=== PATIENT | female | born 1945 | race Caucasian/White ===

== ENCOUNTER 2018-07-04 13:18 | Inpatient (IN) | payer MEDICARE, OTHER ==
[~2018-07-04] VITALS: Ht 157.5 cm; Wt 57.5 kg
[2018-07-04] VITALS (15 sets, daily range): BP systolic 96–178; BP diastolic 49–108; BMI 24.7
--- NOTE | ~2018-07-04 | OP ---
PATIENT NAME: JAISON HORVATH MEDICAL RECORD: [id number] :43 LOCATION:[facility] D.2312 ADMISSION DATE:07/04/18 SURGEON: SAWYER MERRITT MD DATE OF OPERATION: 07/04/2018 PROCEDURES: 1. PTCA stent left circumflex. 2. PTCA, LAD. 3. Left heart catheterization. 4. Selective coronary angiography. 5. Left ventriculogram. 6. Temporary pacemaker placement. INDICATION: Status post arrest, bradycardia, myocardial infarction. PROCEDURE IN DETAIL: After informed consent was obtained and after a detailed description of risks, benefits as well as alternative therapies, the patient elected to proceed with angiogram and angioplasty. The right femoral area was prepped and draped in normal sterile fashion. Right femoral artery was cannulated via modified Seldinger technique with placement of 6-Puerto Rican sheath. The right femoral vein cannulated via modified Seldinger technique with placement of 6-Pu[place]ican sheath. Temporary pacemaker was placed in the right ventricle. FINDINGS: The left ventriculogram was performed in standard 30-degree MELISSA view reveals apical akinesis, ejection fraction is 30%. SELECTIVE CORONARY ANGIOGRAPHY: 1. Left main is with no significant angiographic disease. 2. Left anterior descending has previously placed stents in the LAD and diagonal. There was greater than 70% in-stent restenosis of the LAD. 3. Left circumflex has previously placed stents proximally. There is 90% to 95% in-stent restenosis proximally. 4. The right coronary artery has previously placed stents. There is 80% in-stent restenosis in the mid vessel. PTCA STENT OF THE LEFT CIRCUMFLEX: The circumflex was addressed with a 3.5 x 22 mm Anthon stent. Result was 0% residual stenosis. PTCA OF THE LAD: High pressure PTCA was made with a 3.0 balloon in the mid LAD. Result was 0% residual stenosis. OVERALL IMPRESSION: Successful PTCA stent of the left circumflex and successful high pressure PTCA of the LAD, both for in-stent restenosis, both going from 70% to 95% initial stenosis to 0% residual. PLAN: PTCA stent of the RCA in the near future. TRANSINT:[id number] Voice Confirmation ID: [id number] DOCUMENT ID: [id number] OPERATIVE REPORT [id number] JAISON HORVATH JEFFREY MD at 1806 CC: [id number] DICTATION DATE: 07/04/18 1447 STUDY HALL SUPERVISOR: 07/04/18 1459 ADM IN [place] [id number] [place] [id number]
--- NOTE | ~2018-07-04 | OP ---
PATIENT NAME: JAISON HORVATH MEDICAL RECORD: [id number] :43 LOCATION:.[facility] D.2312 ADMISSION DATE:07/04/18 SURGEON: SAWYER MERRITT MD DATE OF OPERATION: 07/12/2018 PROCEDURES: 1. PTCA stent RCA. 2. Selective coronary angiography. INDICATION: Angina and coronary artery disease. PROCEDURE IN DETAIL: After informed consent was obtained and after a detailed description of risks, benefits as well as alternative therapies, the patient elected to proceed with angiogram and angioplasty. The left femoral area was prepped and draped in normal sterile fashion. Left femoral artery was cannulated via modified Seldinger technique with placement of 6-Latvian sheath. All catheters exchanged through this sheath. FINDINGS: The right coronary artery has 2 areas of at least 80% stenosis. Both areas were covered with 2.25 x 26 mm Sammy stent. Result was 0% residual stenosis. OVERALL IMPRESSION: Successful percutaneous transluminal coronary angioplasty stent of the right coronary artery going from 80% initial stenosis to 0% residual. TRANSINT:[id number] Voice Confirmation ID: [id number] DOCUMENT ID: [id number] SAWYER MERRITT MD at 1950 CC: [id number] DICTATION DATE: 07/12/18 1044 MACHINE STEMMER: 07/12/18 1051 ADM IN [place] [id number] [place] [address]
--- NOTE | ~2018-07-04 | HEMODYNAMI ---
PATIENT:JAISON HORVATH MEDICAL RECORD: [id number] : 43 LOCATION:[facility] D.231 ADMISSION DATE: 07/04/18 Generatedon:07/07/201814:36 Patient name: JAISON HORVATH Patient #: [id number] SSN: : 1 12/26/1944 Date of study: 07/07/2018 Page: Of Hemodynamic Procedure Report Patient Data Patient Demographics Procedure consent was obtained First Name: JAISON Gender: Female Last Name: YULIET : 1945 [facility] Initial: P Age: 72 year(s) Patient #: [id number] Race: Unknown Additional ID: [id number] Contact details Address: [address] [place] [address] State: [place] City: [place] Zip code: [address] Past Medical History Allergies Allergen Reaction Date Comments Reported Other allergy 07/07/2018 morphine Admission Admission Data Admission Date: 07/04/2018 Admission Time: 15:21 Admit Source: Emergency department Room #: D.2312 Procedure Procedure Types Cath Procedure Diagnostic Procedure LHC LHC w/Coronaries Temporary Pacemaker Procedure Description Procedure Date Procedure Date: 07/07/2018 Procedure Start Time: 14:08 Procedure End Time: 14:35 Procedure Staff Name Function Nehemias Spears MD Performing Physician Stefan Castro RT Monitor Shirley Ferguson RT Scrub Alina Joyce RN Nurse Procedure Data Cath Procedure Fluoroscopy Diagnostic fluoroscopy Total fluoroscopy Time: 1.5 time: 1.5 min min Diagnostic fluoroscopy Total fluoroscopy dose: 129 dose: 129 mGy mGy Contrast Material Contrast Material Type Amount (ml) Isovue 300 33 Entry Location Entry Primary Successful Side Size Upsize Upsize Entry Closure Succes sful Closure Location (Fr) 1 (Fr) 2 (Fr) Remarks Device Remarks Femoral Right 6 Fr Exoseal artery Short Femoral Right 6 Fr Sheath vein Short sutured in place Estimated blood loss: 5 ml Diagnostic catheters Device Type Used For End Catheter Placement MULTIPACK JL 4.0 5Fr Procedure catheter MULTIPACK 3DRC 5Fr Procedure catheter MULTIPACK Pigtail 5 Fr Procedure catheter Procedure Complications No complications Procedure Medications Medication Administration Route Dosage Oxygen 100 Lidocaine 2% added to field 20 Heparin Flush Bag added to field 2 bags (1000units/500ml NS) 0.9% NaCl I.V. unlisted medication I.V. drip 25 Dopamine I.V. drip 5 mcg/kg/min (400mg/250ml D5W) Dopamine 5 mcg/kg/min (400mg/250ml D5W) Hemodynamics Rest Heart Rate: 101 (bpm) Pressure Samples Time Site Value (mmHg) Purpose Heart Use Rate(bpm) 14:13 LV 131/16,18 Snapshot 101 14:14 AO 151/85(106) Pullback 97 14:14 LV 130/17,19 Pullback 97 Gradients Valve Time Site 1 Site 2 Mean SEP/DFP Peak To Heart Use (mmHg) (sec/min) Peak Rate (mmHg) (bpm) Aortic 14:14 LV AO 0 4 0 97 130/17,19 151/85(106) Calculations Valve P-P Mean Valve Index Valve Source Name Gradient Area Flow (cm2) Aortic 0 0 0 0 Snapshots Pre Cath Intra NCS Post Cath Vital Signs Time Heart Resp etCO2 NIBP Rhythm Pain Sedation Rate (ipm) (mmHg) (mmHg) Status Level (bpm) 14:08:18 100 18 0 113/44(81) NSR 0 (11) 10(A) , No pain 14:12:32 97 10 0 112/50(85) NSR 0 (11) 5(A) , No pain 14:16:42 109 23 0 120/60(86) NSR 0 (11) 5(A) , No pain 14:21:00 102 22 0 105/45(69) NSR 0 (11) 5(A) , No pain 14:25:14 101 10 0 104/40(79) NSR 0 (11) 5(A) , No pain 14:29:23 101 22 0 100/50(78) NSR 0 (11) 10(A) , No pain 14:33:32 99 22 0 105/49(82) NSR 0 (11) 10(A) , No pain Medications Time Medication Route Dose Verified Delivered Reason Notes Effectiveness by by 13:45:29 DIPROVAN I.V. drip 25 mcg\MIN Nehemias Hull RN FROM ICU 13:45:45 Dopamine I.V. drip 5 Nehemias Fuller CONTINUED (400mg/250ml mcg/kg/min [facility] Jerry Joyce RN FROM ICU D5W) 14:06:45 Oxygen 100% vent Nehemias Spears MD, MD 14:06:55 Lidocaine 2% added to field 20ml vial Nehemias Del Cid for lo reina [facility] John anesthetic MD MALLORY 14:07:00 Heparin Flush added to field 2 bags Nehemias Del Cid used f or Bag [facility] procedure (1000units/500ml MD MALLORY NS) 14:07:10 0.9% NaCl I.V. kvo ml/hr Nehemias Fuller Per [facility] Jerry Joyce RN physician 14:25:47 Dopamine I.V. 5 Nehemias Fuller (400mg/250ml drip-DISCONTINUED mcg/kg/min St Jerry Joyce RN D5W) Procedure Log Time Note 13:45:29 DIPROVAN 25 mcg\MIN I.V. drip was administered by Alina Joyce RN; ; CONTINUED FROM ICU 13:45:45 Alina Joyce RN sent for patient. Start room use. 13:45:45 Pt brought up from ICU by Lisset Carroll (RN) 13:45:45 Dopamine (400mg/250ml D5W) 5 mcg/kg/min I.V. drip was administered by Alina Joyce RN; ; CONTINUED FROM ICU 14:00:07 ACC The patient was administered the following blood thiners within the last 24 hours: ACCPlavix 14:00:27 Patient allergic to Other allergymorphine 14:00:32 Is the patient allergic to Iodine/contrast media? No. 14:00:35 IV patent on arrival in left hand, left forearm with 0.9% NaCl at KVO. 14:01:47 Previous problem with sedation/anesthesia? N/A ? 14:01:48 Snore? N/A 14:01:49 Sleep apnea? N/A 14:01:51 Deviated septum? N/A 14:01:52 Opens mouth fully? N/A 14:01:53 Sticks out tongue? N/A 14:01:56 Airway obstruction? N/A ? 14:01:57 Dentures? N/A ? 14:06:14 Informed consent obtained and on chart 14:06:42 Diagnostic Cath status Emergency 14:06:45 Oxygen 100% vent was administered by Nehemias Spears MD; ; 14:06:53 Time tracking: Regular hours (M-F 7:00 - 5:00) 14:06:55 Lidocaine 2% 20ml vial added to field was administered by Nehemias Spears MD; for local anesthetic; 14:06:57 Plan of Care:Hemodynamics will remain stable., Cardiac rhythm will remain stable., Comfort level will be maintained., Respiratory function will remain adequate., Patient/ family verbilizes understanding of procedure., Procedure tolerated without complication., Recovers from procedure without complications.. 14:07:00 Heparin Flush Bag (1000units/500ml NS) 2 bags added to field was administered by Neheimas Spears MD; used for procedure; 14:07:04 Patient received from ICU to CCL 1 On ventilator. Tansferred to table in Supine position. 14:07:05 Warm blankets applied, and darling hugger turned on for patient comfort. 14:07:06 Correct patient and procedure confirmed by team. 14:07:07 Vital chart was started 14:07:08 ECG and BP/O2 sat monitors applied to patient. 14:07:10 0.9% NaCl kvo ml/hr I.V. was administered by Alina Joyce RN; Per physician; 14:07:15 Sharps counted by scrub and verified by R.N. 14:07:15 Right groin area was prepped with chlora-prep and draped in sterile fashion 14:07:15 Baseline sample Acquired. 14:07:16 Alarms reviewed by R. N. 14:07:19 Physician arrived 14:07:19 --------ALL STOP TIME OUT------ 14:07:20 Final Timeout: patient, procedure, and site verified with staff and physician. All members of the team are in agreement. 14:07:21 Right groin site verified by team. 14:07:24 Physical assessment completed. ASA score P 5 - A moribund patient who is not expected to survive without the operation as per Nehemias Spaers MD. 14:07:36 Sedation plan: None Medication:Lidocaine 14:07:40 Use device set Femoral Dx 14:07:41 ACIST Syringe (94660) opened to sterile field. 14:07:50 Bag Decanter (2001S) opened to sterile field. 14:07:51 Medline Cath Pack ([id number]) opened to sterile field. 14:07:55 ACIST Hand Control (96255) opened to sterile field. 14:07:56 ACIST Manifold (32823) opened to sterile field. 14:07:57 SHEATH Prelude 5Fr 0.035 (SER-4B-84-035) opened to sterile field. 14:07:58 Tegaderm 4 x 4 (1626W) opened to sterile field. 14:07:59 DIAGNOSTIC WIRE .035 260cm J wire (660339) opened to sterile field. 14:08:00 DIAGNOSTIC Multipack 5Fr catheter set (WA2674) opened to sterile field. 14:08:04 Procedure started. 14:08:04 Full Disclosure recording started 14:08:07 Local anesthetic to right femoral artery with Lidocaine 2% by Nehemias Spears MD.INITIAL ACCESS ONLY 14:08:16 A 6 Fr Short sheath was inserted into the Right Femoral artery 14:08:24 A 6 Fr Short sheath was inserted into the Right Femoral vein 14:08:58 Rhythm: sinus tachycardia 14:09:20 SHEATH Prelude 6Fr 0.035 (YUQ-2D-32-035) opened to sterile field. 14:09:21 SHEATH Prelude 6Fr 0.035 (LKH-9I-34-035) opened to sterile field. 14:09:32 5Fr J Tip Temporary Pacing Catheter ([id number]) opened to sterile field. 14:09:39 Zero performed for pressure channel P1 14:10:39 A MULTIPACK JL 4.0 5Fr catheter was advanced over the wire and used for Procedure. 14:11:00 LCA angiography performed. 14:11:33 Jewel from ICU just entered cath suite and informed Dr. Henry that the of pt just signed DNR request. and it was informed to [facility] not to perform any heroic measures in the case if she were to decline. 14:11:37 Catheter exchanged over wire. 14:11:42 A MULTIPACK 3DRC 5Fr catheter was advanced over the wire and used for Procedure. 14:12:14 H&P Date Dictated: 07/04/2018 Within 30 days and on chart.. 14:12:27 RCA angiography performed. 14:12:29 Catheter exchanged over wire. 14:12:38 A MULTIPACK Pigtail 5 Fr catheter was advanced over the wire and used for Procedure. 14:13:40 Is patient on blood thinner?Yes 14:14:00 LV gram done using MELISSA 14:14:02 Injector settings: Ml/sec: 10, Volume: 20, 14:14:05 LV hemodynamics recorded. 14:14:10 EF : 55 % 14:14:17 Catheter removed. 14:14:53 Temporary pacer inserted 14:15:41 Lab results completed and on chart. 14:17:14 Temporary pacer turned on with the following settings: Rate 110, MA 3, Mode: Demand. 14:20:07 Temporary pacer turned on with the following settings: Rate 60, MA 3, Mode: Demand. 14:21:14 EXOSEAL 6Fr (EX600) opened to sterile field. 14:21:23 Sheath removed intact; hemostasis achieved with Exoseal to the Right Femoral artery. 14:21:25 Procedure ended.(Physican Out) 14:23:41 Sheath removed intact; hemostasis achieved with Sheath sutured in place to the Right Femoral vein. 14:24:05 temporary pacemaker sutured in place 14:24:19 Tegaderm 4 x 4 (1626W) opened to sterile field. 14:24:19 Tegaderm 4 x 4 (1626W) opened to sterile field. 14:24:26 2-0 Silk 685H opened to sterile field. 14:24:27 2-0 Silk 685H opened to sterile field. 14:24:49 Fluoroscopy time 01.50 minutes. 14:24:52 Fluoroscopy dose: 129 mGy 14:24:52 Flurop Dose total: 129 14:25:00 Contrast amount:Isovue 300 33ml. 14:25:01 Sharps counted by scrub and verified by R.N. 14:25:03 Insertion/operative site no bleeding no hematoma. 14:25:07 Post-op/insertion site Right Femoral artery dressed using a 4 x 4 and Tegaderm. 14:25:10 Post right femoral artery:stable, soft, clean and dry 14:25:15 Post right femoral vein:stable, soft, clean and dry 14:25:16 Post Procedure Pulses reassessed and unchanged 14:25:20 Post-procedure physical assessment completed. ASA score P 5 - A moribund patient who is not expected to survive without the operation as per Nehemisa Spears MD. 14:25:47 Dopamine (400mg/250ml D5W) 5 mcg/kg/min I.V. drip-DISCONTINUED was administered by Alina Joyce RN; ; 14:25:47 Post procedure rhythm: sinus tachycardia 14:25:49 Estimated blood loss: 5 ml 14:25:50 Post procedure instruction explained to patient.Patient verbalizes understanding. 14:25:51 Patient needs reinforcement of post procedure teaching. 14:27:07 Procedure and supply charges have been captured, reviewed, submitted and are correct. 14:27:13 Procedure Complication : No complications 14:27:18 See physician's report for complete and final results. 14:27:20 Report given to ICU. 14:34:22 Vital chart was stopped 14:34:24 Patient transfered to ICU with Bed. 14:35:09 Procedure ended. 14:35:09 Full Disclosure recording stopped 14:35:28 End room use (Document Last) Device Usage Item Name Manufacture Quantity Catalog Number Hospital Part Current Minimal Lot# / Charge Number Stock Stock Serial# Code ACIST Syringe Acist 1 11097 [id number] 072344 001821 20 (29066) [employer] Bag Decanter Microtek 1 2001S [id number] 08384 154590 5 (2001S) Medical Inc. Medline Cath Cardinal 1 [id number] 768061 78875 720081 5 Pack Health ([id number]) ACIST Hand Acist 1 30162 999956 496752 845180 5 Control (68747) [employer] ACIST Manifold Acist 1 80776 051521 951555 707951 5 (68245) [employer] SHEATH Prelude Merit 1 [id number]-4G-65-035 803801 929645 264744 5 5Fr 0.035 Medical (USV-5Q-37035) Tegaderm 4 x 4 3M 3 1626W 215686 212488 116183 5 (1626W) DIAGNOSTIC WIRE [facility] 1 809658 238226 297615 576001 30 .035 260cm J wire (909151) DIAGNOSTIC Cardinal 1 [id number] 665958 67694 334893 30 Multipack 5Fr Health catheter set ([id number]) SHEATH Prelude Merit 2 [id number]-9U-06-35 944591 4264516 368304 5 6Fr 0.035 Medical (ZLM-8C-51-035) 5Fr J Tip Drake 1 [id number] 317787 81666 960034 2 Temporary Lifesciences Pacing Catheter ([id number]) MULTIPACK JL Cardinal 1 [id number] 5 4.0 5Fr Health catheter MULTIPACK 3DRC Cardinal 1 383056 5 5Fr catheter Health MULTIPACK Cardinal 1 [id number] 5 Pigtail 5 Fr Health catheter EXOSEAL 6Fr Cardinal 1 EX600 140539 194724 673711 10 (EX600) Health 2-0 Silk 685H Ethicon 2 685H 185279 14727 039764 5 Signature Audit [place] Stage Time Signature Unsigned Intra-Procedure 07/07/2018 Stefan Castro 2:36:02 PM RT(R) Signatures Monitor : Stefan Castro RT Signature : Date : Time : [place] [id number] [place] [address]
--- NOTE | ~2018-07-04 | HEMODYNAMI ---
PATIENT:JAISON HORVATH MEDICAL RECORD: [id number] : 43 [id number] ADMISSION DATE: 07/04/18 Generatedon:07/04/201814:57 Patient name: JAISON HORVATH Patient #: [id number] SSN: : 1 12/26/1944 Date of study: 07/04/2018 Page: Of Hemodynamic Procedure Report Patient Data Patient Demographics Procedure consent was obtained First Name: JAISON Gender: Female Last Name: YULIET : 1945 Middle Initial: P Age: 72 year(s) Patient #: [id number] Race: Unknown Additional ID: [id number] Contact details Address: [address] [place] [address] [address] State: [place] City: [place] Zip code: [address] Admission Admission Data Admission Date: 07/04/2018 Admission Time: 13:18 Admit Source: Emergency department Room #: D.2312 Procedure Procedure Types Cath Procedure Diagnostic Procedure LHC LH w/Coronaries Temporary Pacemaker PCI Procedure Coronary Stent Coronary Stent Initial PTCA PTCA Initial Procedure Description Procedure Date Procedure Date: 07/04/2018 Procedure Start Time: 14:16 Procedure End Time: 14:57 Procedure Staff Name Function Aj Lindsey MD Performing Physician Burak Bertrand RT Monitor Stefan Castro RT Scrub Miquel Judge RN Nurse Zak Brewer RT Building Stonecutter Procedure Data Cath Procedure Fluoroscopy Diagnostic fluoroscopy Total fluoroscopy Time: 5.8 time: 5.8 min min Diagnostic fluoroscopy Total fluoroscopy dose: 269 dose: 269 mGy mGy Contrast Material Contrast Material Type Amount (ml) Isovue 300 99 Entry Location Entry Primary Successful Side Size Upsize Upsize Entry Closure Succes sful Closure Location (Fr) 1 (Fr) 2 (Fr) Remarks Device Remarks Femoral Right 6 Fr Exoseal artery Short Femoral Right 6 Fr vein Short Estimated blood loss: 10 ml Diagnostic catheters Device Type Used For End Catheter Placement MULTIPACK Pigtail 5 Fr Procedure catheter MULTIPACK JL 4.0 5Fr Procedure catheter MULTIPACK 3DRC 5Fr Procedure catheter Procedure Complications No complications Procedure Medications Medication Administration Route Dosage Oxygen Heparin Flush Bag added to field 2 bags (1000units/500ml NS) 0.9% NaCl I.V. 100 ml/hr Heparin Bolus I.V. 4000 units Integrilin (Bolus I.V. 5.6 ml 2mg/ml) Integrilin (Bolus wasted 4.4 ml 2mg/ml) Hemodynamics Rest Heart Rate: 71 (bpm) Pressure Samples Time Site Value (mmHg) Purpose Heart Use Rate(bpm) 14:20 LV 119/23,25 Snapshot 71 14:22 AO 103/61(80) Snapshot 53 14:22 AO 105/61(80) Snapshot 52 14:25 AO 139/70(96) Snapshot 67 Snapshots Pre Cath Intra NCS Post Cath Vital Signs Time Heart Resp SPO2 etCO2 NIBP (mmHg) Rhythm Pain Sedation Rate (ipm) (%) (mmHg) Status Level (bpm) 14:21:04 35 17 96 0 108/63(91) NSR 0 (11) 3(A) , No pain 14:25:14 54 16 99 0 124/63(103) NSR 0 (11) 3(A) , No pain 14:29:26 102 17 98 0 136/73(105) NSR 0 (11) 3(A) , No pain 14:33:44 65 17 97 0 102/62(86) NSR 0 (11) 3(A) , No pain 14:37:54 59 17 97 0 114/56(87) NSR 0 (11) 3(A) , No pain 14:40:56 64 18 98 0 104/54(74) NSR 0 (11) 3(A) , No pain 14:45:09 65 17 99 0 103/51(76) NSR 0 (11) 3(A) , No pain 14:49:18 65 17 100 0 99/57(75) NSR 0 (11) 3(A) , No pain 14:53:28 59 15 100 0 101/54(75) NSR 0 (11) 3(A) , No pain 14:57:32 67 17 99 0 106/58(84) NSR 0 (11) 3(A) , No pain Medications Time Medication Route Dose Verified Delivered Reason Notes Effectiveness by by 14:20:58 Oxygen per Aj resp for low 02 sats vent César MALLORY 14:21:17 Heparin Flush added 2 Aj Lafleur used for Bag to bags César Judge shoveler (1000units/500ml field NS) 14:21:26 0.9% NaCl I.V. 100 Aj Lafleur Per physician ml/hr César Judge RN 14:26:49 Heparin Bolus I.V. 4000 Aj Lafleur for units César Judge RN anticoagulation 14:27:03 Integrilin I.V. 5.6 Aj Lafleur for (Bolus 2mg/ml) ml César Judge RN antiplatelet therapy 14:27:11 Integrilin wasted 4.4 Aj Lafleur for (Bolus 2mg/ml) ml César Judge RN antiplatelet therapy Procedure Log Time Note 13:51:05 Informed consent obtained and on chart 13:51:11 Admit Source: Emergency department 13:51:32 Diagnostic Cath status Urgent 13:51:37 Zak Suit RT(R) sent for patient. Start room use. 13:51:38 Time tracking: Regular hours (M-F 7:00 - 5:00) 13:51:41 Plan of Care:Hemodynamics will remain stable., Cardiac rhythm will remain stable., Comfort level will be maintained., Respiratory function will remain adequate., Patient/ family verbilizes understanding of procedure., Procedure tolerated without complication., Recovers from procedure without complications.. 13:51:46 H&P Date Dictated: 07/04/2018 New H&P dictated by physician.. 14:05:29 Patient received from ED to CCL 3 Alert and oriented. Tansferred to table in Supine position. 14:05:30 Warm blankets applied, and darling hugger turned on for patient comfort. 14:05:31 Correct patient and procedure confirmed by team. 14:05:31 ECG and BP/O2 sat monitors applied to patient. 14:08:27 Patient arrives emergently. 14:08:31 Rhythm: paced 14:08:34 Full Disclosure recording started 14:09:14 Pt arrived intubated and on an external pacer. 14:09:20 Pre procedure: right dorsailis pedis pulse 1+ Palpable, but thready & weak; easily obliterated 14:09:35 IV patent on arrival in right wrist, left wrist with 0.9% NaCl at KVO. 14:09:44 Lab results completed and on chart. 14:09:49 Right groin area was prepped with chlora-prep and draped in sterile fashion 14:09:50 Alarms reviewed by R. N. 14:09:51 Sharps counted by scrub and verified by R.N. 14:11:03 --------ALL STOP TIME OUT------ 14:11:04 Final Timeout: patient, procedure, and site verified with staff and physician. All members of the team are in agreement. 14:11:13 Right groin site verified by team. 14:11:16 Physical assessment completed. ASA score P 4 - A patient with severe systemic disease that is a constant threat to life as per Aj Lindsey MD. 14:11:21 Sedation plan: IV Moderate Sedation Medication:Versed, Fentanyl 14:12:02 Use device set Femoral Dx 14:12:11 Use device set Temporary Pacemaker 14:12:26 Use device set TAUTH PCI 14:12:30 ACIST Syringe (36639) opened to sterile field. 14:12:31 Bag Decanter (2002S) opened to sterile field. 14:12:32 Medline Cath Pack ([id number]) opened to sterile field. 14:12:46 ACIST Hand Control (03822) opened to sterile field. 14:12:46 ACIST Manifold (63594) opened to sterile field. 14:12:47 Tegaderm 4 x 4 (1626W) opened to sterile field. 14:12:48 PERCUTANEOUS ENTRY 19GA needle opened to sterile field. 14:13:55 Vital chart was started 14:14:23 DIAGNOSTIC WIRE .035 260cm J wire (743368) opened to sterile field. 14:14:24 DIAGNOSTIC Multipack 5Fr catheter set (AN9231) opened to sterile field. 14:14:27 5Fr J Tip Temporary Pacing Catheter ([id number]) opened to sterile field. 14:14:28 2-0 Silk 685H opened to sterile field. 14:14:29 SHEATH Prelude 6Fr 0.035 (MIY-7L-95-035) opened to sterile field. 14:14:38 SHEATH Prelude 6Fr 0.035 (APR-7X-98-035) opened to sterile field. 14:16:52 Procedure started. 14:16:56 Local anesthetic to right femoral artery with Lidocaine 2% by Aj Lindsey MD.INITIAL ACCESS ONLY 14:17:11 A 6 Fr Short sheath was inserted into the Right Femoral artery 14:17:19 A 6 Fr Short sheath was inserted into the Right Femoral vein 14:17:30 Temporary pacer inserted 14:19:16 Temporary pacer turned on with the following settings: Rate 80, MA 5, Mode: Asynchronous. 14:19:44 A MULTIPACK Pigtail 5 Fr catheter was advanced over the wire and used for Procedure. 14:20:52 LV angiography performed. 14:20:53 LV gram done using MELISSA 14:20:57 EF : 30 % 14:20:58 Oxygen per vent was administered by resp; for low 02 sats; 14:21:17 Heparin Flush Bag (1000units/500ml NS) 2 bags added to field was administered by Miquel Judge RN; used for procedure; 14:21:20 Injector settings: Ml/sec: 10, Volume: 20, 14:21:22 Catheter removed. 14:21:26 0.9% NaCl 100 ml/hr I.V. was administered by Miquel Judge RN; Per physician; 14:21:29 A MULTIPACK JL 4.0 5Fr catheter was advanced over the wire and used for Procedure. 14:21:52 LCA angiography performed. 14:22:31 Catheter removed. 14:22:52 A MULTIPACK 3DRC 5Fr catheter was advanced over the wire and used for Procedure. 14:24:17 RCA angiography performed. 14:24:18 Catheter removed. 14:24:21 INFLATOR Merit BasixCompak (IG0686) opened to sterile field. 14:24:25 CHOICE PT Extra Support 182cm wire ([id number]) opened to sterile field. 14:24:26 GUIDE 6FR EBU 3.5 catheter ([id number]) opened to sterile field. 14:24:39 6 Fr EBU 3.5 guide catheter was inserted over the wire 14:25:07 Choice PT XS wire advanced. 14:25:34 Wire advanced across lesion. 14:26:46 Inflate balloon Inflation number: 1 A EUPHORA 3.0 x 15 Balloon ([id number]) was prepped and advanced across the Mid CX, then inflated to 17 CHRISTINE for 0:10 (min:sec). 14:26:49 Heparin Bolus 4000 units I.V. was administered by Miquel Judge RN; for anticoagulation; 14:27:03 Integrilin (Bolus 2mg/ml) 5.6 ml I.V. was administered by Miquel Judge RN; for antiplatelet therapy; 14:27:08 Multiple inflations made at 17 Atms. 14:27:11 Integrilin (Bolus 2mg/ml) 4.4 ml wasted was administered by Miquel Judge RN; for antiplatelet therapy; 14:29:11 Balloon removed over the wire. 14:29:43 Place stent Inflation Number: 2 A JENNIFER RX 3.5 x 22 stent ([id number]) was prepped and advanced across the Mid CX. The stent was deployed at 17 CHRISTINE for 0:10 (min:sec). 14:30:59 Stent catheter was removed intact over wire. 14:31:19 Wire redirected to LAD. 14:32:10 Temporary pacer turned on with the following settings: Rate 60, MA 5, Mode: Asynchronous. 14:32:27 Wire advanced across lesion. 14:32:45 Inflation number: 1 The EUPHORA 3.0 x 15 Balloon ([id number]) was reinflated across the Mid LAD, to 13 CHRISTINE for 0:10 (min:sec). 14:32:59 Multiple inflations made at 13 Atms. 14:34:07 Balloon removed over the wire. 14:34:07 Wire removed. 14:34:08 Guide catheter removed. 14:34:18 EXOSEAL 6Fr (EX600) opened to sterile field. 14:35:54 Sheath removed intact; hemostasis achieved with Exoseal to the Right Femoral artery. 14:35:56 Procedure ended.(Physican Out) 14:37:35 Fluoroscopy time 05.80 minutes. 14:37:39 Fluoroscopy dose: 269 mGy 14:37:39 Flurop Dose total: 269 14:37:57 Contrast amount:Isovue 300 99ml. 14:37:59 Sharps counted by scrub and verified by R.N. 14:39:02 Venous sheath and Temp Pacer was sutured in with 2.0 Silk. 14:40:13 Post-procedure physical assessment completed. ASA score P 4 - A patient with severe systemic disease that is a constant threat to life as per Aj Lindsey MD. 14:40:17 Post procedure rhythm: paced 14:40:19 Estimated blood loss: 10 ml 14:40:24 Post procedure instruction explained to patient.Patient verbalizes understanding. 14:40:29 Patient needs reinforcement of post procedure teaching. 14:40:45 Procedure type changed to Cath procedure, Diagnostic procedure, LHC, LHC w/Coronaries, Temporary Pacemaker, PCI procedure, Coronary Stent, Coronary Stent Initial, PTCA, PTCA Initial 14:40:52 Procedure Complication : No complications 14:41:41 Procedure and supply charges have been captured, reviewed, submitted and are correct. 14:57:12 Vital chart was stopped 14:57:13 See physician's report for complete and final results. 14:57:15 Report given to ICU. 14:57:29 Patient transfered to ICU with Bed. 14:57:31 Procedure ended. 14:57:31 Full Disclosure recording stopped 14:57:35 End room use (Document Last) Intervention Summary Intervention Notes Time ActionType Lesion and Equipment Used Action# Pressure Duration Attributes 14:26:46 Inflate Mid CX EUPHORA 3.0 x 1 17 00:10 balloon 15 Balloon ([id number]) 14:29:43 Place stent Mid CX JENNIFER RX 3.5 x 2 17 00:10 22 stent ([id number]) 14:32:45 Reinflate Mid LAD EUPHORA 3.0 x 1 13 00:10 balloon 15 Balloon ([id number]) Device Usage Item Name Manufacture Quantity Catalog Number Hospital Part Current Minimal Lot# / Charge Number Stock Stock Serial# Code ACIST Syringe Acist 1 75987 304851 715700 702420 20 (23771) Medical Systems Inc Bag Decanter Microtek 1 2001S 274153 54131 149521 5 (2001S) Medical Inc. Medline Cath Cardinal 1 [id number] 707789 13128 175800 5 Pack Health ([id number]) ACIST Hand Acist 1 45151 066305 961558 704624 5 Control (51066) Medical Systems Inc ACIST Manifold Acist 1 51503 481441 549943 570933 5 (98255) Medical Systems Inc Tegaderm 4 x 4 3M 1 1626W 314562 580241 838583 5 (1626W) PERCUTANEOUS Cook Medical 1 [id number] 565326 155600 5 ENTRY 19GA needle DIAGNOSTIC WIRE St Alejo 1 638475 414614 332548 346841 30 .035 260cm J wire (770354) DIAGNOSTIC Cardinal 1 KI5713 483825 53461 397392 30 Multipack 5Fr Health catheter set (YO2305) 5Fr J Tip Drake 1 [id number] 717446 54371 509339 2 Temporary Lifesciences Pacing Catheter ([id number]) 2-0 Silk 685H Ethicon 1 685H 572742 99921 659286 5 SHEATH Prelude Merit 2 BEO-2V-10-35 817374 0862505 111159 5 6Fr 0.035 Medical (CPC-2A-28-035) MULTIPACK Cardinal 1 477702 5 Pigtail 5 Fr Health catheter MULTIPACK JL Cardinal 1 938866 5 4.0 5Fr Health catheter MULTIPACK 3DRC Cardinal 1 082710 5 5Fr catheter Health INFLATOR Merit Merit 1 EQ0377 398163 100883 508289 15 ValidroidOgden Regional Medical CenterMyMoneyPlatform (NC1536) CHOICE PT Extra [place]te 1 [id number] 272849 631386 510143 5 Support 182cm Scientific wire ([id number]) GUIDE 6FR EBU Medtronic 1 [id number] 979114 62144 318291 3 3.5 catheter (CS0UMW26) EUPHORA 3.0 x Medtronic 1 [id number] 967307 948755 754963 5 [id number] 15 Balloon (TCH0062E) JENNIFER RX 3.5 x Medtronic 1 [id number] 072040 0067756 424330 5 [id number] 22 stent ([id number]) EXOSEAL 6Fr Cardinal 1 EX600 328124 307447 620708 10 (EX600) Health Signature Audit Clayton Stage Time Signature Unsigned Intra-Procedure 07/04/2018 Burak Bertrand 2:57:48 PM RT(R) Signatures Monitor : Burak Bertrand RT Signature : Date : Time : [facility] [address] [place] [address]
--- NOTE | ~2018-07-04 | EC ---
PATIENT:JAISON HORVATH DATE OF SERVICE: 07/04/18 SEX: F MEDICAL RECORD: [id number] DATE OF : 43 LOCATION:[facility] D231 AGE OF PATIENT: 72 ADMISSION DATE: 07/04/18 REFERRING PHYSICIAN: INTERPRETING PHYSICIAN: SAWYER LINDSEY MD ECHOCARDIOGRAM REPORT ECHO CHARGES 4 ECHO COMPLETE Date: 07/12/18 CLINICAL DIAGNOSIS: POST STENT TO RCA, ECHOCARDIOGRAPHIC MEASUREMENTS (adult normal given) AC root (d.<3.7cm) 3.4 cm LV Septum d (<1.2 cm> 1.3 cm Valve Excursion 2.0 cm LV Septum (systole) 1.7 cm Left Atria (s.<4.0cm> 3.6 cm LVPW d(<1.2cm) 1.6 cm RV (d.<2.3cm) 2.5 cm LVPW (sytole) 1.9 cm LV diastole(<5.6CM) 4.0 cm MV E-F(>70mm/sec) cm LV systole 3.2 cm LVOT Diameter 1.5 cm MV exc.(>10mm) cm Est.ejection fraction (50-75%) % DOPPLER: LVIT cm/sec A 89.0 cm/sec E 65.0 cm/sec LA cm/sec RVSP 26 mmHg LVOT 109 cm/sec AOP1/2T m/s Asc. Ao 177 cm/sec RVOT 108 cm/sec RA cm/sec PA 136 cm/sec AV Gradient Peak 12.49mmHg AV Mean 6.68 mmHg AV Area 1.2 cm MV Gradient Peak 4.02 mmHg MV Mean 1.32 mmHg MV Area cm COMMENTS: Inspector Balance Wheel Motion: Shruti JOHNSON Theatrical Rigger: 1 Dr. Lindsey TAPE# PACS Pericardial Effusion N DATE OF SERVICE: 07/12/2018 ECHOCARDIOGRAM FINDINGS: 1. Left ventricular chamber size is within normal limits. Left ventricular systolic function is normal. Overall ejection fraction estimated at 55%. 2. Left atrium, right atrium, and right ventricle chamber sizes are within normal limits. 3. Valvular structures have normal structure and motion. ECHOCARDIOGRAM REPORT [id number] JAISON HORVATH 4. Doppler interrogation reveals mild aortic insufficiency, mild tricuspid regurgitation, no other valvular insufficiency or stenosis. Pulmonary systolic pressure is estimated at 26 mmHg. 5. No evidence of pericardial effusion or left ventricular thrombus. TRANSINT:[id number] Voice Confirmation ID: [id number] DOCUMENT ID: [id number] SAWYER LINDSEY MD at 1950 CC: [id number] DICTATION DATE: 07/12/18 1636 RODEO CLOWN: 07/12/18 1644 ADM IN [facility] [address] [place] [address]
--- NOTE | ~2018-07-04 | HP ---
PATIENT: JAISON HORVATH MEDICAL RECORD: [id number] ACCOUNT: [id number] LOCATION:[facility] D.2312 : 43 ADMISSION DATE: 07/04/18 HISTORY AND PHYSICAL EXAMINATION DIAGNOSES: 1. Status post cardiac arrest. 2. Asystole. 3. Coronary artery disease. 4. Previous PTCA and stent. 5. Myocardial infarction, acute. 6. History of hypertension. 7. Hyperlipidemia. HISTORY OF PRESENT ILLNESS: Mrs. Horvath is status post multivessel PTCA and stent at [facility] as well as here in [place] over the past decade. She was at home today with her and she complained of feeling bad. Her left her for approximately 60 seconds, came back and she was not breathing and unresponsive. She called 911. He started CPR. He admits that he is not trained in CPR and was not sure he was doing breathing as well as chest compressions. EMS arrived. She was purplish at the time EMS arrived. They immediately started bagging her and started CPR, she came back, however, she is with only P waves and no ventricular beats. She is on an external pacer and capturing with the external pacer. She is paced at a rate of 80 and has a systolic blood pressure in the 120 range. Her EKG is obviously uninterpretable due to only externally paced rhythm. Her troponin is elevated. PHYSICAL EXAMINATION: GENERAL APPEARANCE: Well-nourished, well-developed, appears stated age. Level of distress, comfortable. PSYCHIATRIC: Mental status, alert, normal affect. Orientation, oriented to time, place and person. EYES: Lids and conjunctiva, noninjected. No discharge, no pallor. ENT: Lips, teeth, gums, normal dentition. Oropharynx, no cyanosis, no pallor. NECK: Carotid arteries, bilateral normal upstroke, no bruits, no thrills. JUGULAR VEINS: No jugular venous pressure or distention. CERVICAL LYMPH NODES: Nontender, nonenlarged. THYROID: Not enlarged. Nontender. No nodules. LUNGS: Respiratory effort, unlabored. CHEST: Normal curvature. No thoracic deformity. No chest wall tenderness. Percussion, resonant. Auscultation, clear. No wheezes, no rales, no rhonchi. CARDIOVASCULAR: Precordial exam, nondisplaced. No heaves or pericardial thrills. Rate and rhythm, regular. Heart sounds, normal S1, normal S2. No S3, no gallop, no rub. Systolic murmur, not heard. Diastolic murmur, not heard. EXTREMITIES: No cyanosis, no edema. Peripheral pulses, full and equal in all extremities, except as noted. No bruits appreciated. ABDOMEN: Soft, nondistended. Normal aorta. No bruit. Nontender. No masses. Liver, nontender, no hepatomegaly. Spleen, nontender, no splenomegaly. MUSCULOSKELETAL: No joint tenderness. No joint swelling. No erythema. NEUROLOGICAL: Normal gait, normal strength, normal tone. SKIN: Warm and dry. OVERALL IMPRESSION: Acute myocardial infarction with cardiac arrest. At this time, we will take her for emergent cardiac catheterization and temporary pacemaker placement. She is on carvedilol at home. The knows no other HISTORY AND PHYSICAL [id number] JAISON HORVATH medications. This may be contributing to the bradycardia. Further care depends on findings with the catheterization. TRANSINT:[id number] Voice Confirmation ID: [id number] DOCUMENT ID: [id number] SAWYER MERRITT MD at 1843 CC: [id number] DICTATION DATE: 07/07/1844 AIRCONDITIONING DRAFTING OFFICER: 07/07/18 09 ADM IN [place] [id number] [place] [id number]
--- NOTE | ~2018-07-04 | CN ---
PATIENT NAME:JAISON HORVATH MEDICAL RECORD: [id number] : 43 LOCATION:[facility] [place].2124 ADMIT DATE: 07/04/18 ACCOUNT: [id number] CONSULTING PHYSICIAN: ALDAIR BURTON MD REFERRING PHYSICIAN: SAWYER MERRITT MD DATE OF CONSULTATION: 07/19/2018 REASON FOR CONSULTATION: Rash on back. HISTORY OF PRESENT ILLNESS: This is a 72-year-old white female who presented to the hospital for recent heart attack. The patient states she has had 2 heart attacks recently, currently on telemetry. Consultation is for rash. It is on her back and backside. PHYSICAL EXAMINATION: The patient's back has exfoliating redness in a full discrete pattern, limited by clothing, with the impression of this is an old sunburn. The patient states she has recently been golfing and also in a tanning bed. The patient also has erythema and irritation in her perianal, rectal, and vaginal areas, currently using Donovan's Butt Paste topically. This is most likely considered to be from overgrowth of candidiasis. I would place the patient for her back on Diflucan 100 mg a day p.o. for approximately 7 days for that and topical triamcinolone to her back or moisturizers for improvement. TRANSINT:[id number] Voice Confirmation ID: [id number] DOCUMENT ID: [id number] ALDAIR BURTON MD at 1419 CC: [id number] DICTATION DATE: 07/19/18 1301 INSOLE PRESSER: 07/19/18 1429 [place] [address]
--- NOTE | ~2018-07-04 | OP ---
PATIENT NAME: JAISON HORVATH MEDICAL RECORD: [id number] :43 LOCATION:[facility] D.2312 ADMISSION DATE:07/04/18 SURGEON: FERNANDO BARKLEY MD DATE OF OPERATION: 07/07/2018 PROCEDURE: Left heart catheterization, selective coronary angiography plus temporary pacer, right femoral artery and vein approach respectively. CATHETERS: A 5-Italian sheath on the arterial side, a 6-Italian sheath on the venous side. The patient was transferred to the ICU in critical condition. FINDINGS: Left ventriculography in 30-degree MELISSA view shows normal wall motion, normal systolic function. CORONARY ANATOMY: LEFT MAIN: Left main is free of disease. LAD: An area of previous stenting is widely patent with no evidence of thrombus or acute dissection. CIRCUMFLEX: Again, is widely patent. RIGHT CORONARY ARTERY: Patent stents without evidence of stent thrombosis. Next, under fluoroscopic guidance, the temporary pacemaker was placed into the right ventricle apex without difficulty. After adequate thresholds were obtained, this was sutured in place and the patient was transferred to the ICU in critical condition. TRANSINT:[id number] Voice Confirmation ID: [id number] DOCUMENT ID: [id number] FERNANDO BARKLEY MD at 0924 CC: [id number] DICTATION DATE: 07/07/18 1623 FOOD TRAY ASSEMBLER: 07/07/18 1742 ADM IN [place] [id number] [place] [address]
--- NOTE | ~2018-07-04 | OP ---
PATIENT NAME: JAISON HORVATH MEDICAL RECORD: [id number] :43 LOCATION[facility] D.2312 ADMISSION DATE:07/04/18 SURGEON: CESAR ALVARADO MD DATE OF OPERATION: 07/09/2018 SURGEON: Cesar Alvarado MD TUBE KNITTER: TOBI Peters PROCEDURE PERFORMED: Insertion of dual-chamber permanent pacemaker via left subclavian vein. PREOPERATIVE DIAGNOSIS: Complete heart block. POSTOPERATIVE DIAGNOSIS: Complete heart block. ANESTHESIA: General endotracheal anesthesia. ESTIMATED BLOOD LOSS: Minimal. SPECIMENS: None. COMPLICATIONS: None. CONDITION: Stable. DISPOSITION: ICU. OPERATIVE FINDINGS 1. Good pacing thresholds and sensation. 2. Temporary pacer lead removed from the right femoral venous sheath. INDICATIONS FOR SURGERY: Complete heart block on 2 episodes resulting in cardiopulmonary arrest. OPERATIVE SUMMARY IN DETAIL: The patient was brought to the operating suite. General anesthesia was given and the chest was prepped and draped. Incision below the clavicle was made. Subcutaneous pocket was created and made hemostatic. The subclavian vein was cannulated twice. Guidewires were passed under fluoroscopic control and the introducer sheath were placed and the leads were placed into the atrium. Ventricular lead was placed and screwed into place. Good pacing and sensing thresholds were noted and the suture sleeve was used to secure the lead. The J-wire was placed in the atrial lead and it was placed into the right atrial appendage and screwed into place. Again, good pacing and sensing thresholds were obtained and the suture sleeve was used to secure the lead. The pocket was irrigated and then the leads were connected to the pacemaker generator with resultant good sensing and pacing and placed in the pacemaker pocket, sutured into place and then the wound was closed in 2 levels including Dermabond on the skin. No evidence of pneumothorax by fluoroscopy. The suture holding the temporary pacing lead was removed and the lead was easily removed under fluoroscopic control with the right femoral sheath left in place. The patient to ICU in stable condition. TRANSINT:[id number] Voice Confirmation ID: [id number] DOCUMENT ID: [id number] OPERATIVE REPORT [id number] ABBY HORVATHCESAR XIAO MD at 1622 CC: SAWYER MERRITT [id number] DICTATION DATE: 07/09/18928 PLATFORM MILL SUPERVISOR: 07/09/18 1004 ADM IN [facility] [address] [id number]
--- NOTE | ~2018-07-04 | HEMODYNAMI ---
PATIENT:JAISON HORVATH MEDICAL RECORD: [id number] : 43 LOCATION:[facility] D[facility]2312 [id number] AD[facility]ION DATE: 07/04/18 Generatedon:07/12/201810:45 Patient name: JAISON HORVATH Patient #: [id number] SSN: : 1 12/26/1944 Date of study: 07/12/2018 Page: Of Hemodynamic Procedure Report Patient Data Patient Demographics Procedure consent was obtained First Name: JAISON Gender: Female Last Name: YULIET : 1945 [facility] Initial: P Age: 72 year(s) Patient #: [id number] Race: Unknown Additional ID: [id number] Contact details Address: [address] [place] [address] State: [place] City: [place] Zip code: [address] Past Medical History Allergies Allergen Reaction Date Comments Reported Other allergy 07/07/2018 morphine Other allergy 07/12/2018 Morphine Admission Admission Data Admission Date: 07/04/2018 Admission Time: 15:21 Admit Source: Emergency department Room #: D.2312 Lab Results Lab Result Date: 07/12/2018 Lab Result Time: 5:23 Biochemistry Name Units Result Min Max BUN mg/dl 17 --(---*)-- 7 18 Creatinine mg/dl 0.6 --(*---)-- 0.6 1.3 CBC Name Units Result Min Max Hematocrit % 30 *-(----)-- 42 54 Hemoglobin g/dl 10.1 *-(----)-- 13.5 17.5 Procedure Procedure Types Cath Procedure PCI Procedure Coronary Stent Coronary Stent Initial Procedure Description Procedure Date Procedure Date: 07/12/2018 Procedure Start Time: 10:34 Procedure End Time: 10:43 Procedure Staff Name Function Aj Lindsey MD Performing Physician Stefan Castro RT Monitor Burak Bertrand RT Scrub Onofre Chen RN Nurse Procedure Data Cath Procedure Fluoroscopy Diagnostic fluoroscopy Total fluoroscopy Time: 1.3 time: 1.3 min min Diagnostic fluoroscopy Total fluoroscopy dose: dose: 63.79 mGy 63.79 mGy Contrast Material Contrast Material Type Amount (ml) Isovue 300 37 Entry Location Entry Primary Successful Side Size Upsize Upsize Entry Closure Succes sful Closure Location (Fr) 1 (Fr) 2 (Fr) Remarks Device Remarks Femoral Left 6 Fr Exoseal artery Short Estimated blood loss: 10 ml Procedure Complications No complications Procedure Medications Medication Administration Route Dosage 0.9% NaCl I.V. 100 ml/hr Oxygen 15 l/min Heparin Flush Bag added to field 2 bags (1000units/500ml NS) Lidocaine 2% added to field 20 Diprivan 1% 77 (Propofol) Heparin Bolus I.V. 4000 units Hemodynamics Rest Heart Rate: 60 (bpm) Snapshots Pre Cath Intra NCS Post Cath Vital Signs Time Heart Resp SPO2 etCO2 NIBP (mmHg) Rhythm Pain Sedation Rate (ipm) (%) (mmHg) Status Level (bpm) 10:10:21 60 17 100 0 147/61(99) Paced 0 (11) 6(A) , No pain 10:15:36 60 17 100 0 146/68(93) Paced 0 (11) 6(A) , No pain 10:20:50 59 17 100 0 169/77(102) Paced 0 (11) 6(A) , No pain 10:25:18 59 17 100 0 172/73(100) Paced 0 (11) 6(A) , No pain 10:29:48 60 17 100 0 181/76(172) Paced 0 (11) 6(A) , No pain 10:35:26 59 18 100 0 173/75(105) Paced 0 (11) 6(A) , No pain 10:39:57 60 17 100 0 177/81(104) Paced 0 (11) 6(A) , No pain 10:44:27 60 17 100 0 181/79(114) Paced 0 (11) 6(A) , No pain Medications Time Medication Route Dose Verified Delivered Reason Notes Effectiveness by by 10:10:04 0.9% NaCl I.V. 100 ml/hr Onofre Adhikari Per physician April Chen RN RN 10:10:46 Oxygen OETT 15l/min Onofre Adhikari Per physician April Chen RN RN 10:10:58 Heparin Flush added to 2 bags Onofre Onofre used for Bag field April Chen procedure (1000units/500ml RN RN NS) 10:11:19 Lidocaine 2% added to 20ml vial Onofre Adhikari for local field Lorigan April anesthetic RN RN 10:13:49 Diprivan 1% I.V. 77mcg\kg\min Onofre Adhikari for sedation (Propofol) infusing April Cormiersterling from DECISION ANALYST RN 10:36:49 Heparin Bolus I.V. 4000 units Onofre Adhikari for Lorigan Lorigan anticoagulation RN stave cutting supervisor Log Time Note 9:17:44 Informed consent obtained and on chart 9:17:50 Admit Source: Emergency department 9:18:10 Diagnostic Cath status Elective 9:18:16 Time tracking: Regular hours (M-F 7:00 - 5:00) 9:18:20 Plan of Care:Hemodynamics will remain stable., Cardiac rhythm will remain stable., Comfort level will be maintained., Respiratory function will remain adequate., Patient/ family verbilizes understanding of procedure., Procedure tolerated without complication., Recovers from procedure without complications.. 9:19:22 H&P Date Dictated: 07/11/2018 Within 30 days and on chart.. 9:42:21 Burak Bertrand RT(R) sent for patient. Start room use. 9:57:42 Patient received from ICU to CCL 3 On ventilator. Tansferred to table in Supine position. 9:57:43 Warm blankets applied, and darling hugger turned on for patient comfort. 9:57:44 Correct patient and procedure confirmed by team. 9:57:44 ECG and BP/O2 sat monitors applied to patient. 10:09:03 Vital chart was started 10:10:04 0.9% NaCl 100 ml/hr I.V. was administered by Onofre Chen RN; Per physician; 10:10:46 Oxygen 15l/min OETT was administered by Onofre Chen RN; Per physician; 10:10:58 Heparin Flush Bag (1000units/500ml NS) 2 bags added to field was administered by Onofre Chen RN; used for procedure; 10:11:04 Pre-procedure instructions explained to patient. 10:11:19 Lidocaine 2% 20ml vial added to field was administered by Onofre Chen RN; for local anesthetic; 10:11:36 Unable to provide pre-op teaching due to educational barrier. on ventilator 10:11:38 Family in patients room. 10:11:40 Patient NPO since Midnight. 10:11:48 Patient allergic to Other allergyMorphine 10:11:53 Is the patient allergic to Iodine/contrast media? No. 10:11:55 Is patient on blood thinner?Yes 10:11:58 ACC The patient was administered the following blood thiners within the last 24 hours: ACCPlavix 10:13:49 Diprivan 1% (Propofol) 77mcg\kg\min I.V. infusing from ICU was administered by Onofre Chen RN; for sedation; 10:15:22 Patient diabetic? Unknown. 10:15:26 Previous problem with sedation/anesthesia? No ? 10:15:27 Snore? Unknown 10:15:28 Sleep apnea? Unknown 10:15:30 Deviated septum? No 10:15:34 Opens mouth fully? Unknown 10:15:36 Sticks out tongue? Unknown 10:15:40 Airway obstruction? Unknown ? 10:15:45 Dentures? No ? 10:16:01 Pre procedure: left dorsailis pedis pulse 1+ Palpable, but thready & weak; easily obliterated 10:16:04 Patient pain scale 0/10 ?. 10:16:09 IV patent on arrival in right wrist with 0.9% NaCl at [facility]. 10:17:42 Lab Result : BUN 17 mg/dl 10:17:42 Lab Result : Creatinine 0.6 mg/dl 10:17:42 Lab Result : Hemoglobin 10.1 g/dl 10:17:42 Lab Result : Hematocrit 30 % 10:17:44 Lab results completed and on chart. 10:17:47 Left groin area was prepped with chlora-prep and draped in sterile fashion 10:17:48 Alarms reviewed by R. N. 10:17:49 Sharps counted by scrub and verified by R.N. 10:17:50 Use device set Femoral Dx 10:17:51 ACIST Syringe (11456) opened to sterile field. 10:17:52 Bag Decanter (2002) opened to sterile field. 10:17:54 ACIST Hand Control (87391) opened to sterile field. 10:17:54 ACIST Manifold (09262) opened to sterile field. 10:17:55 Tegaderm 4 x 4 (1626W) opened to sterile field. 10:17:59 Medline Cath Pack (NWOC49861) opened to sterile field. 10:18:02 DIAGNOSTIC WIRE .035 260cm J wire (341223) opened to sterile field. 10:18:06 Baseline sample Acquired. 10:18:12 Rhythm: paced 10:18:18 Full Disclosure recording started 10:22:59 CHOICE PT Extra Support 182cm wire ([id number]) opened to sterile field. 10:23:00 INFLATOR Merit BasixCompak (NP6796) opened to sterile field. 10:23:01 SHEATH Prelude 6Fr 0.035 (IWE-5J-68-035) opened to sterile field. 10:25:19 Physician arrived 10::19 --------ALL STOP TIME OUT------ 10:25:20 Final Timeout: patient, procedure, and site verified with staff and physician. All members of the team are in agreement. 10:25:21 Left groin site verified by team. 10:25:26 Physical assessment completed. ASA score P 4 - A patient with severe systemic disease that is a constant threat to life as per Aj Lindsey MD. 10:25:32 Sedation plan: Local Anesthetic Medication:Lidocaine 10:28:31 Zero performed for pressure channel P1 10:34:33 Procedure started. 10:34:37 Local anesthetic to left femerol artery with Lidocaine 2% by Aj Lindsey MD.INITIAL ACCESS ONLY 10:34:44 A 6 Fr Short sheath was inserted into the Left Femoral artery 10:35:20 GUIDE 6FR AR 2.0 SH catheter ([id number]) opened to sterile field. 10:35:28 6 Fr ar 2 sh guide catheter was inserted over the wire 10:36:49 Heparin Bolus 4000 units I.V. was administered by Onofre Chen RN; for anticoagulation; 10:37:20 choice pt es wire advanced. 10:37:21 Wire advanced across lesion. 10:38:10 Place stent Inflation Number: 1 A JENNIFER RX 2.25 x 26 stent ([id number]) was prepped and advanced across the Mid RCA. The stent was deployed at 15 CHRISTINE for 0:10 (min:sec). 10:38:16 Inflation number: 2 The stent balloon was then re-inflated across the Mid RCA to 17 CHRISTINE for 0:10 (min:sec). 10:38:41 Stent catheter was removed intact over wire. 10:38:43 Wire removed. 10:38:43 Guide catheter removed. 10:38:53 EXOSEAL 6Fr (EX600) opened to sterile field. 10:39:02 Sheath removed intact; hemostasis achieved with Exoseal to the Left Femoral artery. 10:39:03 Procedure ended.(Physican Out) 10:41:53 Fluoroscopy time 01.30 minutes. 10:42:00 Flurop Dose total: 63.79 10:42:00 Fluoroscopy dose: 63.79 mGy 10:42:05 Contrast amount:Isovue 300 37ml. 10:42:07 Sharps counted by scrub and verified by R.N. 10:42:10 Insertion/operative site no bleeding no hematoma. 10:42:14 Post-op/insertion site Left Femoral artery dressed using a 4 x 4 and Tegaderm. 10:42:20 Post left femerol artery:stable, soft, clean and dry 10:42:21 Post Procedure Pulses reassessed and unchanged 10:42:23 Post-procedure physical assessment completed. ASA score P 4 - A patient with severe systemic disease that is a constant threat to life as per Aj Lindsey MD. 10:42:25 Post procedure rhythm: unchanged. 10:42:27 Estimated blood loss: 10 ml 10:42:28 Post procedure instruction explained to patient.Patient verbalizes understanding. 10:42:28 Patient needs reinforcement of post procedure teaching. 10:43:38 Procedure and supply charges have been captured, reviewed, submitted and are correct. 10:43:40 Procedure Complication : No complications 10:43:42 Vital chart was stopped 10:43:42 See physician's report for complete and final results. 10:43:45 Report given to ICU. 10:43:47 Patient transfered to ICU with Stretcher. 10:43:50 Procedure ended. 10:43:50 Full Disclosure recording stopped 10:44:05 End room use (Document Last) Intervention Summary Intervention Notes Time ActionType Lesion and Equipment Used Action# Pressure Duration Attributes 10:38:10 Place stent Mid RCA JENNIFER RX 2.25 x 1 15 00:10 26 stent ([id number]) 10:38:16 Reinflate Mid RCA JENNIFER RX 2.25 x 2 17 00:10 stent 26 stent balloon ([id number]) Device Usage Item Name Manufacture Quantity Catalog Number Hospital Part Current Minimal Lot# / Charge Number Stock Stock Serial# Code ACIST Syringe Acist 1 [id number] [id number] 221195 [id number] 20 (06533) [employer] Bag Decanter Microtek 1 2001S 548788 37223 703867 5 (2001S) Medical Inc. ACIST Hand Acist 1 81068 211043 073595 264848 5 Control (01019) [employer] Inc ACIST Manifold Acist 1 68282 687462 225985 292858 5 (93204) Medical Systems Inc Tegaderm 4 x 4 3M 1 1626W 200172 478896 320420 5 (1626W) Medline Cath Cardinal 1 [id number] 308923 10118 542654 5 Pack iPAYst ([id number]) DIAGNOSTIC WIRE St Alejo 1 673053 924994 778215 292035 30 .035 260cm J wire (413346) CHOICE PT Extra Otho 1 [id number] 224377 115032 803239 5 Support 182cm Scientific wire ([id number]) INFLATOR Merit Merit 1 AK5375 204771 023508 282329 15 BasixCompak Medical ([id number]) SHEATH Prelude Merit 1 DZP-[id number] 143865 8957030 258024 5 6Fr 0.035 Medical ([id number]-6I-46-035) GUIDE 6FR AR Medtronic 1 [id number] 775132 27514 177400 1 2.0 SH catheter ([id number]) JENNIFER RX 2.25 x Medtronic 1 [id number] 968298 2047539 428222 5 [id number] 26 stent ([id number]) EXOSEAL 6Fr Cardinal 1 EX600 431766 129749 877006 10 (EX600) Health Signature Audit [place] Stage Time Signature Unsigned Intra-Procedure 07/12/2018 Stefan Castro 10:45:01 AM RT(R) Signatures Monitor : Stefan Castro RT Signature : Date : Time : [facility] [address] [place] [address]
[2018-07-04 13:41] LABS: BASOPHILS 0.2 % (0-2); EOSINOPHILS 0.4 % (0-7); HEMATOCRIT 41.7 % (36.0-48.0); HEMOGLOBIN 13.7 g/dL (12-16); IMMATURE GRANULOCYTES 0.7 % (0-5); LYMPHOCYTES 18.7 % (15-50); MCH 29.4 pg (26.0-34.0); MCHC 32.9 g/dL (31.0-37.0); MCV 89.5 fL (80.0-100.0); MEAN PLATELET VOLUME 10.9 fL (7.4-10.4); MONOCYTES 3.9 % (2-11); NEUTROPHILS 76.1 % (40-80); PLATELET COUNT 314 10x3/uL (130-400); RBC 4.66 10x6/uL (4.00-5.40); RDW 13.8 % (11.5-14.5); WBC 12.3 10x3/uL (4.8-10.8)
[2018-07-04 14:02] LABS: ALBUMIN 3.2 g/dL (3.4-5.0); ALKALINE PHOSPHATASE 129 U/L (46-116); ALT (SGPT) 259 U/L (10-68); BILIRUBIN - TOTAL 0.48 mg/dL (0.2-1.3); CALC OSMOLALITY 283 mosm/kg (275-300); CALCIUM 8.2 mg/dL (8.5-10.1); CARBON DIOXIDE 23.7 mmol/L (21.0-32.0); CHLORIDE - SERUM 104 mmol/L (98-107); GLUCOSE 222 mg/dL (74-106); POTASSIUM - SERUM 3.1 mmol/L (3.5-5.1); PROTEIN - SERUM 6.5 g/dL (6.4-8.2); SODIUM 138 mmol/L (136-145); UREA NITROGEN 16 mg/dL (7-18); eGFR NON AFRICAN AMERICAN 58 mL/min (90-120)
[2018-07-04 14:26] LABS: CKMB 1.9 U/L (0.0-3.6); CREATINE KINASE 162 UL (21-215); MAGNESIUM - SERUM 1.9 mg/dL (1.8-2.4); PRO BNP 79 pg/mL (0-125)
[2018-07-04 14:30] LABS: TROPONIN-I 0.078 ng/mL (0.000-0.060)
[2018-07-04] MEDS ORDERED: SYNTHROID50 MCG PO (15:57)
[2018-07-04] MEDS ORDERED: COREG6.25 MG PO (15:58)
[2018-07-04] MEDS ORDERED: HCTZ25 MG PO (15:59)
[2018-07-04] MEDS ORDERED: BAYER CHEWABLE81 MG PO (16:00)
[2018-07-04] MEDS ORDERED: LAMICTAL200 MG PO (16:02)
[2018-07-04] MEDS ORDERED: PLAVIX75 MG PO (16:03)
[2018-07-04 20:44] LABS: ANION GAP 15.8 mmol/L (8-16); CALCIUM 8.1 mg/dL (8.5-10.1); CARBON DIOXIDE 22.5 mmol/L (21.0-32.0); CREATININE - SERUM 1.1 mg/dL (0.6-1.3); MAGNESIUM - SERUM 1.7 mg/dL (1.8-2.4); PHOSPHOROUS 2.5 mg/dL (2.5-4.9); POTASSIUM - SERUM 3.3 mmol/L (3.5-5.1)
[2018-07-05] VITALS (25 sets, daily range): BP systolic 98–126; BP diastolic 48–99; BMI 24.7
[2018-07-05 03:42] LABS: BASOPHILS 0 % (0-2); EOSINOPHILS 0 % (0-7); HEMATOCRIT 38.3 % (36.0-48.0); HEMOGLOBIN 12.9 g/dL (12-16); IMMATURE GRANULOCYTES 0.3 % (0-5); LYMPHOCYTES 7.8 % (15-50); MCH 29.1 pg (26.0-34.0); MCHC 33.7 g/dL (31.0-37.0); MEAN PLATELET VOLUME 10.7 fL (7.4-10.4); MONOCYTES 4.1 % (2-11); NEUTROPHILS 87.8 % (40-80); PLATELET COUNT 285 10x3/uL (130-400); RBC 4.44 10x6/uL (4.00-5.40); RDW 13.8 % (11.5-14.5); WBC 13.3 10x3/uL (4.8-10.8)
[2018-07-05 03:51] LABS: MCV 86.3 fL (80.0-100.0)
[2018-07-05 03:57] LABS: ALBUMIN 3.1 g/dL (3.4-5.0); ANION GAP 13.7 mmol/L (8-16); BILIRUBIN - TOTAL 0.56 mg/dL (0.2-1.3); CALCIUM 8.4 mg/dL (8.5-10.1); CARBON DIOXIDE 22.7 mmol/L (21.0-32.0); MAGNESIUM - SERUM 1.6 mg/dL (1.8-2.4); PHOSPHOROUS 2.9 mg/dL (2.5-4.9); POTASSIUM - SERUM 3.4 mmol/L (3.5-5.1); PROTEIN - SERUM 6.5 g/dL (6.4-8.2)
[2018-07-05 03:59] LABS: CREATININE - SERUM 0.8 mg/dL (0.6-1.3)
[2018-07-06] VITALS (26 sets, daily range): BP systolic 100–118; BP diastolic 48–61
[2018-07-06 04:35] LABS: BASOPHILS 0.1 % (0-2); EOSINOPHILS 0.1 % (0-7); HEMATOCRIT 34.2 % (36.0-48.0); HEMOGLOBIN 11.3 g/dL (12-16); IMMATURE GRANULOCYTES 0.3 % (0-5); LYMPHOCYTES 7.8 % (15-50); MCH 29.4 pg (26.0-34.0); MEAN PLATELET VOLUME 11.3 fL (7.4-10.4); MONOCYTES 7.4 % (2-11); NEUTROPHILS 84.3 % (40-80); RBC 3.85 10x6/uL (4.00-5.40); RDW 14.6 % (11.5-14.5)
[2018-07-06 04:45] LABS: MCV 88.8 fL (80.0-100.0); PLATELET COUNT 218 10x3/uL (130-400)
[2018-07-06 04:58] LABS: ALBUMIN 2.6 g/dL (3.4-5.0); ALKALINE PHOSPHATASE 135 U/L (46-116); BILIRUBIN - TOTAL 0.98 mg/dL (0.2-1.3); CALCIUM 7.4 mg/dL (8.5-10.1); CARBON DIOXIDE 23.6 mmol/L (21.0-32.0); CHLORIDE - SERUM 105 mmol/L (98-107); CREATININE - SERUM 0.7 mg/dL (0.6-1.3); GLUCOSE 138 mg/dL (74-106); POTASSIUM - SERUM 3.9 mmol/L (3.5-5.1); PROTEIN - SERUM 5.8 g/dL (6.4-8.2); SODIUM 135 mmol/L (136-145); eGFR NON AFRICAN AMERICAN 87 mL/min (90-120)
[2018-07-06 05:02] LABS: ALT (SGPT) 169 U/L (10-68); CALC OSMOLALITY 270 mosm/kg (275-300); PHOSPHOROUS 2.1 mg/dL (2.5-4.9); UREA NITROGEN 11 mg/dL (7-18)
[2018-07-07] VITALS (24 sets, daily range): BP systolic 89–165; BP diastolic 50–76
[2018-07-07 04:43] LABS: BASOPHILS 0.1 % (0-2); EOSINOPHILS 0.1 % (0-7); HEMATOCRIT 34.4 % (36.0-48.0); HEMOGLOBIN 11.5 g/dL (12-16); IMMATURE GRANULOCYTES 0.2 % (0-5); LYMPHOCYTES 8.6 % (15-50); MCH 29.6 pg (26.0-34.0); MCHC 33.4 g/dL (31.0-37.0); MCV 88.7 fL (80.0-100.0); MEAN PLATELET VOLUME 10.8 fL (7.4-10.4); PLATELET COUNT 198 10x3/uL (130-400); RBC 3.88 10x6/uL (4.00-5.40); RDW 14.5 % (11.5-14.5); WBC 16.7 10x3/uL (4.8-10.8)
[2018-07-07 05:07] LABS: ALBUMIN 2.5 g/dL (3.4-5.0); ALKALINE PHOSPHATASE 218 U/L (46-116); ALT (SGPT) 152 U/L (10-68); BILIRUBIN - TOTAL 1.05 mg/dL (0.2-1.3); CALC OSMOLALITY 278 mosm/kg (275-300); CALCIUM 7.8 mg/dL (8.5-10.1); CARBON DIOXIDE 25.1 mmol/L (21.0-32.0); CHLORIDE - SERUM 104 mmol/L (98-107); CREATININE - SERUM 0.6 mg/dL (0.6-1.3); GLUCOSE 140 mg/dL (74-106); MAGNESIUM - SERUM 2.2 mg/dL (1.8-2.4); PHOSPHOROUS 2.3 mg/dL (2.5-4.9); POTASSIUM - SERUM 3.4 mmol/L (3.5-5.1); PROTEIN - SERUM 5.7 g/dL (6.4-8.2); SODIUM 139 mmol/L (136-145); UREA NITROGEN 11 mg/dL (7-18); eGFR NON AFRICAN AMERICAN > 90 mL/min (90-120)
[2018-07-08] VITALS (24 sets, daily range): BP systolic 89–106; BP diastolic 42–64
[2018-07-08 03:08] LABS: BASOPHILS 0.1 % (0-2); EOSINOPHILS 0.1 % (0-7); HEMATOCRIT 28.3 % (36.0-48.0); HEMOGLOBIN 9.7 g/dL (12-16); IMMATURE GRANULOCYTES 0.1 % (0-5); LYMPHOCYTES 7.2 % (15-50); MCH 30.4 pg (26.0-34.0); MCHC 34.3 g/dL (31.0-37.0); MCV 88.7 fL (80.0-100.0); MEAN PLATELET VOLUME 11.6 fL (7.4-10.4); MONOCYTES 6.9 % (2-11); NEUTROPHILS 85.6 % (40-80); PLATELET COUNT 174 10x3/uL (130-400); RBC 3.19 10x6/uL (4.00-5.40); RDW 14.4 % (11.5-14.5); WBC 13.5 10x3/uL (4.8-10.8)
[2018-07-08 03:41] LABS: CARBON DIOXIDE 23.5 mmol/L (21.0-32.0); CHLORIDE - SERUM 104 mmol/L (98-107); CREATININE - SERUM 0.6 mg/dL (0.6-1.3); GLUCOSE 125 mg/dL (74-106); MAGNESIUM - SERUM 1.7 mg/dL (1.8-2.4); PHOSPHOROUS 2.6 mg/dL (2.5-4.9); POTASSIUM - SERUM 3.5 mmol/L (3.5-5.1); SODIUM 135 mmol/L (136-145); eGFR NON AFRICAN AMERICAN > 90 mL/min (90-120)
[2018-07-08 03:44] LABS: CALC OSMOLALITY 271 mosm/kg (275-300); CALCIUM 6.1 mg/dL (8.5-10.1); TROPONIN-I 0.217 ng/mL (0.000-0.060); UREA NITROGEN 14 mg/dL (7-18)
[2018-07-08 15:04] LABS: APTT 21.6 SECONDS (22.8-39.4); INR 1.18 (0.85-1.17); PROTIME 14.6 SECONDS (11.6-15.0)
[2018-07-09] VITALS (24 sets, daily range): BP systolic 97–142; BP diastolic 46–76
[2018-07-09 03:37] LABS: BASOPHILS 0.3 % (0-2); EOSINOPHILS 1.5 % (0-7); HEMATOCRIT 30.8 % (36.0-48.0); HEMOGLOBIN 10.1 g/dL (12-16); IMMATURE GRANULOCYTES 0.4 % (0-5); MCH 28.9 pg (26.0-34.0); MCHC 32.8 g/dL (31.0-37.0); MCV 88.3 fL (80.0-100.0); MEAN PLATELET VOLUME 11.2 fL (7.4-10.4); MONOCYTES 10.9 % (2-11); NEUTROPHILS 75.9 % (40-80); PLATELET COUNT 207 10x3/uL (130-400); RBC 3.49 10x6/uL (4.00-5.40); RDW 14.5 % (11.5-14.5)
[2018-07-09 04:50] LABS: ALKALINE PHOSPHATASE 260 U/L (46-116); ALT (SGPT) 135 U/L (10-68); BILIRUBIN - TOTAL 0.83 mg/dL (0.2-1.3); CALC OSMOLALITY 274 mosm/kg (275-300); CARBON DIOXIDE 25.3 mmol/L (21.0-32.0); CHLORIDE - SERUM 105 mmol/L (98-107); CREATININE - SERUM 0.7 mg/dL (0.6-1.3); GLUCOSE 126 mg/dL (74-106); PHOSPHOROUS 2.4 mg/dL (2.5-4.9); POTASSIUM - SERUM 3.5 mmol/L (3.5-5.1); PROTEIN - SERUM 6.2 g/dL (6.4-8.2); SODIUM 136 mmol/L (136-145); UREA NITROGEN 16 mg/dL (7-18); eGFR NON AFRICAN AMERICAN 87 mL/min (90-120)
[2018-07-09 04:53] LABS: ALBUMIN 1.9 g/dL (3.4-5.0); CALCIUM 8.2 mg/dL (8.5-10.1); MAGNESIUM - SERUM 2.4 mg/dL (1.8-2.4)
[2018-07-10] VITALS (24 sets, daily range): BP systolic 91–132; BP diastolic 53–82
[2018-07-10 03:08] LABS: BASOPHILS 0.1 % (0-2); EOSINOPHILS 0.1 % (0-7); HEMATOCRIT 31.9 % (36.0-48.0); HEMOGLOBIN 10.4 g/dL (12-16); IMMATURE GRANULOCYTES 0.7 % (0-5); LYMPHOCYTES 5.6 % (15-50); MCH 28.9 pg (26.0-34.0); MCHC 32.6 g/dL (31.0-37.0); MCV 88.6 fL (80.0-100.0); MEAN PLATELET VOLUME 11.2 fL (7.4-10.4); MONOCYTES 4.3 % (2-11); NEUTROPHILS 89.2 % (40-80); PLATELET COUNT 242 10x3/uL (130-400); RDW 14.2 % (11.5-14.5); WBC 12.4 10x3/uL (4.8-10.8)
[2018-07-10 03:27] LABS: ALKALINE PHOSPHATASE 317 U/L (46-116); ALT (SGPT) 119 U/L (10-68); BILIRUBIN - TOTAL 0.66 mg/dL (0.2-1.3); CALC OSMOLALITY 280 mosm/kg (275-300); CALCIUM 8.5 mg/dL (8.5-10.1); CHLORIDE - SERUM 107 mmol/L (98-107); GLUCOSE 154 mg/dL (74-106); MAGNESIUM - SERUM 2.2 mg/dL (1.8-2.4); POTASSIUM - SERUM 4.1 mmol/L (3.5-5.1); PROTEIN - SERUM 6.4 g/dL (6.4-8.2); SODIUM 139 mmol/L (136-145); UREA NITROGEN 13 mg/dL (7-18)
[2018-07-10 03:28] LABS: ALBUMIN 1.9 g/dL (3.4-5.0); CREATININE - SERUM 0.5 mg/dL (0.6-1.3); PHOSPHOROUS 3.2 mg/dL (2.5-4.9); eGFR NON AFRICAN AMERICAN > 90 mL/min (90-120)
[2018-07-11] VITALS (24 sets, daily range): BP systolic 91–136; BP diastolic 48–66; Ht 157.5 cm; Wt 57.5 kg
[2018-07-11 03:38] LABS: BASOPHILS 0.2 % (0-2); EOSINOPHILS 0.5 % (0-7); HEMATOCRIT 30.6 % (36.0-48.0); HEMOGLOBIN 10.3 g/dL (12-16); IMMATURE GRANULOCYTES 1.6 % (0-5); LYMPHOCYTES 9.2 % (15-50); MCH 29.2 pg (26.0-34.0); MCHC 33.7 g/dL (31.0-37.0); MCV 86.7 fL (80.0-100.0); MONOCYTES 4.9 % (2-11); NEUTROPHILS 83.6 % (40-80); PLATELET COUNT 275 10x3/uL (130-400); RBC 3.53 10x6/uL (4.00-5.40); RDW 14.4 % (11.5-14.5); WBC 10.9 10x3/uL (4.8-10.8)
[2018-07-11 03:55] LABS: CALC OSMOLALITY 283 mosm/kg (275-300); CALCIUM 8.8 mg/dL (8.5-10.1); CARBON DIOXIDE 25.3 mmol/L (21.0-32.0); CHLORIDE - SERUM 105 mmol/L (98-107); CREATININE - SERUM 0.6 mg/dL (0.6-1.3); GLUCOSE 184 mg/dL (74-106); MAGNESIUM - SERUM 1.9 mg/dL (1.8-2.4); PHOSPHOROUS 2.9 mg/dL (2.5-4.9); POTASSIUM - SERUM 3.7 mmol/L (3.5-5.1); SODIUM 139 mmol/L (136-145); UREA NITROGEN 15 mg/dL (7-18); eGFR NON AFRICAN AMERICAN > 90 mL/min (90-120)
[2018-07-12] VITALS (35 sets, daily range): BP systolic 61–120; BP diastolic 38–72
[2018-07-12 05:43] LABS: BASOPHILS 0.3 % (0-2); EOSINOPHILS 0.3 % (0-7); HEMOGLOBIN 10.1 g/dL (12-16); IMMATURE GRANULOCYTES 2.2 % (0-5); LYMPHOCYTES 9.7 % (15-50); MCH 29.1 pg (26.0-34.0); MCHC 33.7 g/dL (31.0-37.0); MCV 86.5 fL (80.0-100.0); MEAN PLATELET VOLUME 10.8 fL (7.4-10.4); MONOCYTES 6.4 % (2-11); NEUTROPHILS 81.1 % (40-80); PLATELET COUNT 306 10x3/uL (130-400); RBC 3.47 10x6/uL (4.00-5.40); RDW 14.4 % (11.5-14.5); WBC 12.3 10x3/uL (4.8-10.8)
[2018-07-12 05:58] LABS: CALC OSMOLALITY 283 mosm/kg (275-300); CALCIUM 8.4 mg/dL (8.5-10.1); CARBON DIOXIDE 24.3 mmol/L (21.0-32.0); CHLORIDE - SERUM 105 mmol/L (98-107); CREATININE - SERUM 0.6 mg/dL (0.6-1.3); GLUCOSE 171 mg/dL (74-106); POTASSIUM - SERUM 3.7 mmol/L (3.5-5.1); SODIUM 139 mmol/L (136-145); UREA NITROGEN 17 mg/dL (7-18); eGFR NON AFRICAN AMERICAN > 90 mL/min (90-120)
[2018-07-12 13:15] LABS: HEMOGLOBIN 9.4 g/dL (12-16)
[2018-07-12 14:13] LABS: HEMOGLOBIN 9.3 g/dL (12-16)
[2018-07-12 21:23] LABS: HEMATOCRIT 32.3 % (36.0-48.0); HEMOGLOBIN 10.9 g/dL (12-16)
[2018-07-13] VITALS (70 sets, daily range): BP systolic 69–128; BP diastolic 42–91
[2018-07-13 05:21] LABS: CALC OSMOLALITY 284 mosm/kg (275-300); CALCIUM 7.8 mg/dL (8.5-10.1); CARBON DIOXIDE 23.6 mmol/L (21.0-32.0); CHLORIDE - SERUM 108 mmol/L (98-107); CREATININE - SERUM 0.6 mg/dL (0.6-1.3); GLUCOSE 151 mg/dL (74-106); POTASSIUM - SERUM 3.9 mmol/L (3.5-5.1); SODIUM 140 mmol/L (136-145); UREA NITROGEN 20 mg/dL (7-18); eGFR NON AFRICAN AMERICAN > 90 mL/min (90-120)
[2018-07-13 05:23] LABS: HEMATOCRIT 31.1 % (36.0-48.0); HEMOGLOBIN 10.6 g/dL (12-16); LYMPHOCYTES 9.6 % (15-50); MCH 28.8 pg (26.0-34.0); MCHC 34.1 g/dL (31.0-37.0); MEAN PLATELET VOLUME 10.8 fL (7.4-10.4); NEUTROPHILS 84.5 % (40-80); PLATELET COUNT 279 10x3/uL (130-400); RBC 3.68 10x6/uL (4.00-5.40)
[2018-07-13 05:24] LABS: MCV 84.5 fL (80.0-100.0); WBC 19.9 10x3/uL (4.8-10.8)
[2018-07-14] VITALS (62 sets, daily range): BP systolic 89–143; BP diastolic 48–121
[2018-07-14 04:16] LABS: BASOPHILS 0.2 % (0-2); EOSINOPHILS 0.2 % (0-7); HEMATOCRIT 28.5 % (36.0-48.0); HEMOGLOBIN 9.3 g/dL (12-16); IMMATURE GRANULOCYTES 2.9 % (0-5); MCH 28.7 pg (26.0-34.0); MCHC 32.6 g/dL (31.0-37.0); MONOCYTES 3.4 % (2-11); NEUTROPHILS 86.3 % (40-80); PLATELET COUNT 289 10x3/uL (130-400); RBC 3.24 10x6/uL (4.00-5.40); RDW 15.9 % (11.5-14.5); WBC 19.7 10x3/uL (4.8-10.8)
[2018-07-14 04:46] LABS: CALC OSMOLALITY 284 mosm/kg (275-300); CALCIUM 8.1 mg/dL (8.5-10.1); CARBON DIOXIDE 23.2 mmol/L (21.0-32.0); CHLORIDE - SERUM 106 mmol/L (98-107); CREATININE - SERUM 0.6 mg/dL (0.6-1.3); GLUCOSE 159 mg/dL (74-106); POTASSIUM - SERUM 3.8 mmol/L (3.5-5.1); SODIUM 140 mmol/L (136-145); UREA NITROGEN 21 mg/dL (7-18); eGFR NON AFRICAN AMERICAN > 90 mL/min (90-120)
[2018-07-15] VITALS (24 sets, daily range): BP systolic 117–169; BP diastolic 5–101
[2018-07-15 06:19] LABS: HEMATOCRIT 29.8 % (36.0-48.0); LYMPHOCYTES 8.8 % (15-50); MCH 29.2 pg (26.0-34.0); MCHC 33.6 g/dL (31.0-37.0); MCV 86.9 fL (80.0-100.0); MEAN PLATELET VOLUME 9.6 fL (7.4-10.4); NEUTROPHILS 85.5 % (40-80); PLATELET COUNT 300 10x3/uL (130-400); RBC 3.43 10x6/uL (4.00-5.40); RDW 15.2 % (11.5-14.5)
[2018-07-15 06:25] LABS: WBC 14.6 10x3/uL (4.8-10.8)
[2018-07-15 06:35] LABS: CALCIUM 8.5 mg/dL (8.5-10.1); CARBON DIOXIDE 25.7 mmol/L (21.0-32.0); CHLORIDE - SERUM 108 mmol/L (98-107); POTASSIUM - SERUM 3.7 mmol/L (3.5-5.1); SODIUM 143 mmol/L (136-145)
[2018-07-15 06:37] LABS: CALC OSMOLALITY 286 mosm/kg (275-300); CREATININE - SERUM 0.3 mg/dL (0.6-1.3); GLUCOSE 111 mg/dL (74-106); UREA NITROGEN 14 mg/dL (7-18); eGFR NON AFRICAN AMERICAN > 90 mL/min (90-120)
[2018-07-16] VITALS (24 sets, daily range): BP systolic 124–160; BP diastolic 58–87
[2018-07-16 05:23] LABS: BASOPHILS 0.2 % (0-2); EOSINOPHILS 0.1 % (0-7); HEMATOCRIT 33.8 % (36.0-48.0); HEMOGLOBIN 10.8 g/dL (12-16); IMMATURE GRANULOCYTES 0.8 % (0-5); LYMPHOCYTES 5.3 % (15-50); MCH 28.9 pg (26.0-34.0); MCV 90.4 fL (80.0-100.0); MEAN PLATELET VOLUME 10.5 fL (7.4-10.4); MONOCYTES 2.9 % (2-11); NEUTROPHILS 90.7 % (40-80); PLATELET COUNT 390 10x3/uL (130-400); RBC 3.74 10x6/uL (4.00-5.40); RDW 15.2 % (11.5-14.5); WBC 17.8 10x3/uL (4.8-10.8)
[2018-07-16 05:32] LABS: CALCIUM 8.8 mg/dL (8.5-10.1); CARBON DIOXIDE 29.1 mmol/L (21.0-32.0); CHLORIDE - SERUM 103 mmol/L (98-107); POTASSIUM - SERUM 3.9 mmol/L (3.5-5.1); SODIUM 139 mmol/L (136-145); UREA NITROGEN 16 mg/dL (7-18)
[2018-07-16 05:38] LABS: CALC OSMOLALITY 283 mosm/kg (275-300); CREATININE - SERUM 0.4 mg/dL (0.6-1.3); GLUCOSE 183 mg/dL (74-106); eGFR NON AFRICAN AMERICAN > 90 mL/min (90-120)
[2018-07-17] VITALS (26 sets, daily range): BP systolic 85–154; BP diastolic 49–92
[2018-07-17 02:05] LABS: APPEARANCE HAZY (CLEAR); BACTERIA NONE SEEN /hpf (NONE SEEN); BILIRUBIN NEGATIVE (NEGATIVE); COLOR PINK (YELLOW); EPITHELIAL CELLS NSEEN /hpf (0-5); GLUCOSE NEGATIVE (NEGATIVE); KETONE NEGATIVE (NEGATIVE); NITRITE NEGATIVE (NEGATIVE); PROTEIN NEGATIVE (NEGATIVE); RED CELLS - URINE >50 /hpf (0-5); UROBILINOGEN NORMAL (NORMAL); WHITE CELLS - URINE NSEEN /hpf (0-5)
[2018-07-17 06:28] LABS: BASOPHILS 0.1 % (0-2); EOSINOPHILS 0.1 % (0-7); HEMATOCRIT 34.5 % (36.0-48.0); HEMOGLOBIN 11.1 g/dL (12-16); IMMATURE GRANULOCYTES 0.6 % (0-5); LYMPHOCYTES 6.5 % (15-50); MCH 28.7 pg (26.0-34.0); MCHC 32.2 g/dL (31.0-37.0); MCV 89.1 fL (80.0-100.0); MEAN PLATELET VOLUME 9.9 fL (7.4-10.4); MONOCYTES 4.8 % (2-11); NEUTROPHILS 87.9 % (40-80); PLATELET COUNT 414 10x3/uL (130-400); RBC 3.87 10x6/uL (4.00-5.40); WBC 15.6 10x3/uL (4.8-10.8)
[2018-07-17 07:08] LABS: ALBUMIN 2.5 g/dL (3.4-5.0); ALKALINE PHOSPHATASE 268 U/L (46-116); ALT (SGPT) 69 U/L (10-68); BILIRUBIN - TOTAL 0.56 mg/dL (0.2-1.3); CALC OSMOLALITY 282 mosm/kg (275-300); CARBON DIOXIDE 28.3 mmol/L (21.0-32.0); CHLORIDE - SERUM 102 mmol/L (98-107); CREATININE - SERUM 0.5 mg/dL (0.6-1.3); GLUCOSE 157 mg/dL (74-106); POTASSIUM - SERUM 4.3 mmol/L (3.5-5.1); PRO BNP 1185 pg/mL (0-125); PROTEIN - SERUM 6.4 g/dL (6.4-8.2); SODIUM 139 mmol/L (136-145); UREA NITROGEN 18 mg/dL (7-18); eGFR NON AFRICAN AMERICAN > 90 mL/min (90-120)
[2018-07-17] MEDS ORDERED: DOXEPIN HCL10 MG PO (09:51)
[2018-07-18] VITALS (15 sets, daily range): BP systolic 97–162; BP diastolic 47–83
[2018-07-18 04:42] LABS: BASOPHILS 0.1 % (0-2); EOSINOPHILS 0 % (0-7); HEMATOCRIT 32.1 % (36.0-48.0); HEMOGLOBIN 10.2 g/dL (12-16); IMMATURE GRANULOCYTES 0.5 % (0-5); LYMPHOCYTES 4.6 % (15-50); MCH 28.7 pg (26.0-34.0); MCHC 31.8 g/dL (31.0-37.0); MCV 90.4 fL (80.0-100.0); MEAN PLATELET VOLUME 10.3 fL (7.4-10.4); MONOCYTES 3.4 % (2-11); NEUTROPHILS 91.4 % (40-80); PLATELET COUNT 477 10x3/uL (130-400); RBC 3.55 10x6/uL (4.00-5.40); RDW 15.1 % (11.5-14.5); WBC 14.2 10x3/uL (4.8-10.8)
[2018-07-18 05:01] LABS: CALC OSMOLALITY 289 mosm/kg (275-300); CALCIUM 8.9 mg/dL (8.5-10.1); CARBON DIOXIDE 30.6 mmol/L (21.0-32.0); CHLORIDE - SERUM 103 mmol/L (98-107); CREATININE - SERUM 0.5 mg/dL (0.6-1.3); GLUCOSE 182 mg/dL (74-106); POTASSIUM - SERUM 3.8 mmol/L (3.5-5.1); SODIUM 142 mmol/L (136-145); UREA NITROGEN 19 mg/dL (7-18); eGFR NON AFRICAN AMERICAN > 90 mL/min (90-120)
[2018-07-19 06:17] LABS: BASOPHILS 0.2 % (0-2); HEMATOCRIT 29.9 % (36.0-48.0); HEMOGLOBIN 9.6 g/dL (12-16); IMMATURE GRANULOCYTES 0.6 % (0-5); LYMPHOCYTES 16.7 % (15-50); MCH 28.8 pg (26.0-34.0); MCHC 32.1 g/dL (31.0-37.0); MCV 89.8 fL (80.0-100.0); MEAN PLATELET VOLUME 9.9 fL (7.4-10.4); MONOCYTES 8.9 % (2-11); NEUTROPHILS 72.6 % (40-80); PLATELET COUNT 421 10x3/uL (130-400); RBC 3.33 10x6/uL (4.00-5.40); RDW 15.2 % (11.5-14.5); WBC 12.6 10x3/uL (4.8-10.8)
[2018-07-19 06:21] VITALS: BP 141/67
[2018-07-19 07:06] LABS: CALC OSMOLALITY 281 mosm/kg (275-300); CALCIUM 8.8 mg/dL (8.5-10.1); CARBON DIOXIDE 27.3 mmol/L (21.0-32.0); CHLORIDE - SERUM 102 mmol/L (98-107); CREATININE - SERUM 0.5 mg/dL (0.6-1.3); POTASSIUM - SERUM 3.7 mmol/L (3.5-5.1); SODIUM 140 mmol/L (136-145); UREA NITROGEN 17 mg/dL (7-18); eGFR NON AFRICAN AMERICAN > 90 mL/min (90-120)
[2018-07-19 07:10] LABS: GLUCOSE 122 mg/dL (74-106)
[2018-07-19 07:48] VITALS: BP 141/59
[2018-07-19 10:42] VITALS: BP 116/57
[2018-07-19 15:45] VITALS: BP 121/61
[2018-07-19 21:20] VITALS: BP 134/69
[2018-07-20 05:53] VITALS: BP 118/55
[2018-07-20 06:39] LABS: BASOPHILS 0.5 % (0-2); EOSINOPHILS 1.4 % (0-7); HEMATOCRIT 29.6 % (36.0-48.0); HEMOGLOBIN 9.5 g/dL (12-16); IMMATURE GRANULOCYTES 0.7 % (0-5); LYMPHOCYTES 11.2 % (15-50); MCH 28.9 pg (26.0-34.0); MCHC 32.1 g/dL (31.0-37.0); MEAN PLATELET VOLUME 10.2 fL (7.4-10.4); MONOCYTES 7.2 % (2-11); PLATELET COUNT 460 10x3/uL (130-400); RBC 3.29 10x6/uL (4.00-5.40); RDW 15.3 % (11.5-14.5); WBC 13.1 10x3/uL (4.8-10.8)
[2018-07-20 06:42] LABS: CALC OSMOLALITY 273 mosm/kg (275-300); CALCIUM 8.6 mg/dL (8.5-10.1); CARBON DIOXIDE 26.6 mmol/L (21.0-32.0); CHLORIDE - SERUM 100 mmol/L (98-107); CREATININE - SERUM 0.6 mg/dL (0.6-1.3); GLUCOSE 137 mg/dL (74-106); POTASSIUM - SERUM 3.8 mmol/L (3.5-5.1); SODIUM 135 mmol/L (136-145); UREA NITROGEN 17 mg/dL (7-18); eGFR NON AFRICAN AMERICAN > 90 mL/min (90-120)
[2018-07-20 07:56] VITALS: BP 112/71
[2018-07-20 12:27] VITALS: BP 112/64
[2018-07-20 16:09] VITALS: BP 128/72
[2018-07-20] MEDS ORDERED: XOPENEX 0.0.63 MG/3 UPD (16:13)
[2018-07-20] MEDS ORDERED: MEGACE400 MG/10 PO (16:14)
[2018-07-20] MEDS ORDERED: PROTONIX40 MG PO (16:15)
[2018-07-20] MEDS ORDERED: PROCALAMINE I1000 ML IV (16:16)
[2018-07-20] MEDS ORDERED: DIFLUCAN100 MG PO (16:17)
[2018-07-20] MEDS ORDERED: D5 1/2NS 10001000 ML IV (16:17)
[2018-07-20] MEDS ORDERED: CALMOSEPTINE OI71 GM TOPICAL (16:18)
[2018-07-22 20:08] LABS: AEROBE ID Final report (())
== END 2018-07-20 17:42 | DRG 242 ==
LOC: D.ER 13:18 → D.ICU 14:53 → D.ER 15:17 → D.M2 15:21 → D.ICU 15:21 → D.M2 07-18 13:40
PROVIDERS: Emergency Medicine; Internal Medicine Cardiovascular Disease; Internal Medicine Interventional Cardiology; Internal Medicine Pulmonary Disease; Thoracic Surgery (Cardiothoracic Vascular Surgery)
PROC: 02703ZZ Dilation of Coronary Artery, One Artery, Percutaneous Approach (ICD-10-PCS; 2018-07-04)
PROC: B2111ZZ Fluoroscopy of Multiple Coronary Arteries using Low Osmolar Contrast (ICD-10-PCS; 2018-07-04)
PROC: B2151ZZ Fluoroscopy of Left Heart using Low Osmolar Contrast (ICD-10-PCS; 2018-07-04)
PROC: 4A023N7 Measurement of Cardiac Sampling and Pressure, Left Heart, Percutaneous Approach (ICD-10-PCS; 2018-07-04)
PROC: 0BH17EZ Insertion of Endotracheal Airway into Trachea, Via Natural or Artificial Opening (ICD-10-PCS; 2018-07-04)
PROC: 5A1955Z Respiratory Ventilation, Greater than 96 Consecutive Hours (ICD-10-PCS; 2018-07-04)
PROC: 027034Z Dilation of Coronary Artery, One Artery with Drug-eluting Intraluminal Device, Percutaneous Approach (ICD-10-PCS; principal; 2018-07-04 11:30)
PROC: 5A1223Z Performance of Cardiac Pacing, Continuous (ICD-10-PCS; 2018-07-07)
PROC: B2111ZZ Fluoroscopy of Multiple Coronary Arteries using Low Osmolar Contrast (ICD-10-PCS; 2018-07-07)
PROC: B2151ZZ Fluoroscopy of Left Heart using Low Osmolar Contrast (ICD-10-PCS; 2018-07-07)
PROC: 4A023N7 Measurement of Cardiac Sampling and Pressure, Left Heart, Percutaneous Approach (ICD-10-PCS; 2018-07-07)
PROC: 02HK3JZ Insertion of Pacemaker Lead into Right Ventricle, Percutaneous Approach (ICD-10-PCS; 2018-07-09)
PROC: 0JH606Z Insertion of Pacemaker, Dual Chamber into Chest Subcutaneous Tissue and Fascia, Open Approach (ICD-10-PCS; 2018-07-09 07:30)
PROC: 027035Z Dilation of Coronary Artery, One Artery with Two Drug-eluting Intraluminal Devices, Percutaneous Approach (ICD-10-PCS; 2018-07-12)
DX: I97.190 Other postprocedural cardiac functional disturbances following cardiac surgery (principal); I46.9 Cardiac arrest, cause unspecified; J96.00 Acute respiratory failure, unspecified whether with hypoxia or hypercapnia; I50.21 Acute systolic (congestive) heart failure; J15.6 Pneumonia due to other Gram-negative bacteria; I21.9 Acute myocardial infarction, unspecified; J93.9 Pneumothorax, unspecified; J90 Pleural effusion, not elsewhere classified; T82.855A Stenosis of coronary artery stent, initial encounter; E87.6 Hypokalemia; I44.39 Other atrioventricular block; E83.42 Hypomagnesemia; I25.10 Atherosclerotic heart disease of native coronary artery without angina pectoris; K76.89 Other specified diseases of liver; R58 Hemorrhage, not elsewhere classified; D64.9 Anemia, unspecified

== ENCOUNTER 2018-07-19 17:20 | Inpatient (IN) | payer MEDICARE, OTHER ==
[~2018-07-19] VITALS: Ht 157.5 cm; Wt 54.9 kg
--- NOTE | ~2018-07-19 | RHP ---
PATIENT: JAISON HORVATH MEDICAL RECORD: [id number] ACCOUNT: [id number] LOCATION:[id number] : 43 ADMISSION DATE: 07/20/18 REHABILITATION HISTORY AND PHYSICAL EXAMINATION POST ADMISSION PHYSICIAN EXAMINATION DATE OF ADMISSION: 07/20/2018 ADMITTING DIAGNOSIS: Disuse myopathy. HISTORY OF PRESENT ILLNESS: The patient is a 72-year-old female patient who was admitted for disuse myopathy. She was brought in via EMS on 07/04/2018 with cardiac arrest, was intubated at the field, the patient's found her unresponsive, not breathing after seeing her approximately 60 seconds previously and just complained of feeling bad and initiated CPR to the best of his ability, but he has had no training. She got a history of status post multivessel PTCA and stent times 11 at [facility] and at the [facility] as well as here in [facility] over the past decade. She was only having ventricular beats at that time. She was placed on external pacer and capturing with external pacer. Troponin was elevated. She was taken to the lab animal technician by Dr. Lindsey and had a stent placed in the proximal preexisting left circumflex, also angioplasty was done in the LAD and a significant 80% stenosis in the right coronary artery, all were existing stents that had restenosed. She had cardiac arrest again on 07/07/2018 and on 07/09/2018, had a permanent pacemaker placed. She has had a slow recovery. She continues to be on telemetry, continued on procalamine via IV. She is not meeting her p.o. intake at this time. She is debilitated. She is currently having barriers to discharge such as that. She was independent with her ADLs and her mobility. She is currently sit up for max assist for ADLs, mod to max assist for mobility. She and her would like her to return home at her prior level of functioning or better if any possibility of that. COMORBIDITIES: Include oropharyngeal dysphagia, speech disturbance, status post cardiac arrest, asystole, coronary artery disease, previous percutaneous transluminal coronary angioplasty and stent, myocardial infarction, hypertension, hyperlipidemia, respiratory failure, anemia, hypokalemia, hypophosphatemia, electrolyte abnormalities, elevated LFTs, ischemic hepatopathy, slightly elevated ammonia level. PAST MEDICAL HISTORY: Significant for coronary artery disease with angioplasty and stents placed, bipolar disorder. PAST SURGICAL HISTORY: Includes angioplasty with stent placement. ALLERGIES: MORPHINE. CURRENT MEDICATIONS: She is on Diflucan 100 mg daily, Protonix 40 mg daily. She is on Synthroid 50 mcg daily, Lamictal 200 mg daily, hydrochlorothiazide 25 mg daily. She is on Plavix 75 mg daily, Coreg 6.25 mg b.i.d. with meals, aspirin chewable 81 mg daily, Xopenex updrafts t.i.d., polyethylene glycol 17 grams in 8 ounces of water daily, Calmoseptine as needed, Megace 200 mg b.i.d., Tylenol 650 mg q. 6 hours p.r.n., doxepin 10 mg at bedtime. HABITS: No alcohol or tobacco use. HISTORY AND PHYSICAL [id number] JAISON HORVATH FAMILY HISTORY: Noncontributory. SOCIAL HISTORY: The patient hopes to return back home and get back to her prior level of functioning. REVIEW OF SYSTEMS: GENERAL: Does complain of weakness and fatigue. HEENT: Denies cold, cough, or congestion. CARDIOVASCULAR: Denies chest pain. PHYSICAL EXAMINATION: VITAL SIGNS: Stable, afebrile. GENERAL: An elderly female, in no acute distress, alert upon exam. HEENT: Normocephalic and atraumatic. Mucosa moist. NECK: Supple. No lymphadenopathy. LUNGS: Clear at this time. HEART: Regular rate and rhythm. ABDOMEN: Benign. EXTREMITIES: No clubbing, cyanosis or edema. NEUROLOGIC: She does have noted proximal muscle weakness. LABORATORY DATA: White count is 12.1, H&H of 11 and 32 and platelet count is noted to be 446. Her sodium is 140, potassium 4.3, BUN and creatinine of 14 and 0.5, and blood sugar is noted to be 126. ASSESSMENT: This is a 72-year-old female patient who was admitted to rehab with a working diagnosis of disuse myopathy. The patient has potential to make improvement. We instituted the following multidisciplinary therapies including but not limited to physical, occupational, respiratory, speech, nutritional services, prosthetics, and orthotics. Given her complex medical condition and risks for more complications, rehabilitation services cannot be provided at a low level of care such as a [facility] facility. PLAN: 1. Admit to [facility] for intensive inpatient therapy to include the following disciplines: A. Physical therapy to improve gait, all transfer skills and bed mobility to a modified independent level. B. Occupational therapy to improve activities of daily living to a modified independent level. C. Case management to assist with discharge planning and placement options. D. Nutrition to assist with nutritional needs. E. Rehabilitation nursing to assist in monitoring underlying medical conditions and to assist with any type of bowel or bladder management. 2. The patient's current medication and medical care will be continued. 3. The patient will be placed on standard fall precautions. 4. Watch her cardiac enzymes and treatment closely. 5. Follow up with care team and will see her as needed. 6. We will see again in the a.m. TRANSINT:[id number] Voice Confirmation ID: [id number] DOCUMENT ID: [id number] HISTORY AND PHYSICAL [id number] JAISON HORVATH notes whether there has been none or any medical/functional change since admission: - No change since preadmission screen. TEO attests patient continues to be appropriate for IRF: - Continues to be appropriate. MEGHANA COTE MD at 1733 CC: [id number] DICTATION DATE: 07/21/18 0855 INFORMATION COORDINATOR: 07/21/18 0956 ADM IN [facility] [address] [id number]
[~2018-07-19 17:20] MED LIST: BAYER CHEWABLE81 MG PO; COREG6.25 MG PO; DOXEPIN HCL10 MG PO; HCTZ25 MG PO; LAMICTAL200 MG PO; PLAVIX75 MG PO; SYNTHROID50 MCG PO
[2018-07-20] MEDS ORDERED: XOPENEX 0.0.63 MG/3 UPD (16:13)
[2018-07-20] MEDS ORDERED: MEGACE400 MG/10 PO (16:14)
[2018-07-20] MEDS ORDERED: PROTONIX40 MG PO (16:15)
[2018-07-20] MEDS ORDERED: PROCALAMINE I1000 ML IV (16:16)
[2018-07-20] MEDS ORDERED: D5 1/2NS 10001000 ML IV (16:17)
[2018-07-20] MEDS ORDERED: DIFLUCAN100 MG PO (16:17)
[2018-07-20] MEDS ORDERED: CALMOSEPTINE OI71 GM TOPICAL (16:18)
[2018-07-20 21:33] VITALS: BP 119/55; BMI 22.2
[2018-07-21 06:38] LABS: BASOPHILS 0.3 % (0-2); EOSINOPHILS 1.2 % (0-7); HEMATOCRIT 32.9 % (36.0-48.0); HEMOGLOBIN 10.8 g/dL (12-16); IMMATURE GRANULOCYTES 0.4 % (0-5); LYMPHOCYTES 11.1 % (15-50); MCH 29.6 pg (26.0-34.0); MCHC 32.8 g/dL (31.0-37.0); MCV 90.1 fL (80.0-100.0); MEAN PLATELET VOLUME 10.6 fL (7.4-10.4); MONOCYTES 6.3 % (2-11); NEUTROPHILS 80.7 % (40-80); PLATELET COUNT 446 10x3/uL (130-400); RBC 3.65 10x6/uL (4.00-5.40); WBC 12.1 10x3/uL (4.8-10.8)
[2018-07-21 06:40] LABS: CALC OSMOLALITY 281 mosm/kg (275-300); CALCIUM 8.8 mg/dL (8.5-10.1); CARBON DIOXIDE 26.6 mmol/L (21.0-32.0); CHLORIDE - SERUM 102 mmol/L (98-107); CREATININE - SERUM 0.5 mg/dL (0.6-1.3); GLUCOSE 126 mg/dL (74-106); POTASSIUM - SERUM 4.3 mmol/L (3.5-5.1); SODIUM 140 mmol/L (136-145); UREA NITROGEN 14 mg/dL (7-18); eGFR NON AFRICAN AMERICAN > 90 mL/min (90-120)
[2018-07-21 08:19] VITALS: BP 119/60
[2018-07-21 12:06] VITALS: Ht 157.5 cm; Wt 54.9 kg
[2018-07-21 19:00] VITALS: BP 113/55
[2018-07-21 21:47] LABS: APPEARANCE CLEAR (CLEAR); BILIRUBIN NEGATIVE (NEGATIVE); COLOR YELLOW (YELLOW); GLUCOSE NEGATIVE (NEGATIVE); KETONE NEGATIVE (NEGATIVE); NITRITE NEGATIVE (NEGATIVE); PROTEIN NEGATIVE (NEGATIVE); UROBILINOGEN NORMAL (NORMAL)
[2018-07-21 21:48] LABS: RED CELLS - URINE 0-5 /hpf (0-5); WHITE CELLS - URINE 0-5 /hpf (0-5)
[2018-07-21 21:49] LABS: BACTERIA FEW /hpf (NONE SEEN)
[2018-07-22 06:33] LABS: BASOPHILS 0.2 % (0-2); EOSINOPHILS 1.3 % (0-7); HEMATOCRIT 29.2 % (36.0-48.0); HEMOGLOBIN 9.5 g/dL (12-16); IMMATURE GRANULOCYTES 0.4 % (0-5); LYMPHOCYTES 11.4 % (15-50); MCHC 32.5 g/dL (31.0-37.0); MEAN PLATELET VOLUME 10.4 fL (7.4-10.4); NEUTROPHILS 80.7 % (40-80); PLATELET COUNT 409 10x3/uL (130-400); RBC 3.28 10x6/uL (4.00-5.40); RDW 15.1 % (11.5-14.5); WBC 11.5 10x3/uL (4.8-10.8)
[2018-07-22 06:42] LABS: CALC OSMOLALITY 267 mosm/kg (275-300); CALCIUM 8.5 mg/dL (8.5-10.1); CARBON DIOXIDE 23.9 mmol/L (21.0-32.0); CHLORIDE - SERUM 98 mmol/L (98-107); CREATININE - SERUM 0.4 mg/dL (0.6-1.3); GLUCOSE 130 mg/dL (74-106); POTASSIUM - SERUM 3.9 mmol/L (3.5-5.1); SODIUM 132 mmol/L (136-145); UREA NITROGEN 16 mg/dL (7-18); eGFR NON AFRICAN AMERICAN > 90 mL/min (90-120)
[2018-07-22 08:05] VITALS: BP 101/61
[2018-07-22 20:51] VITALS: BP 101/61
[2018-07-23 08:00] VITALS: BP 119/65
[2018-07-23 17:09] VITALS: BP 116/67
[2018-07-23 20:00] VITALS: BP 114/44
[2018-07-25 07:28] LABS: BASOPHILS 0.2 % (0-2); EOSINOPHILS 0.7 % (0-7); HEMATOCRIT 30.5 % (36.0-48.0); HEMOGLOBIN 9.8 g/dL (12-16); IMMATURE GRANULOCYTES 0.4 % (0-5); LYMPHOCYTES 14.1 % (15-50); MCH 28.8 pg (26.0-34.0); MCHC 32.1 g/dL (31.0-37.0); MCV 89.7 fL (80.0-100.0); MEAN PLATELET VOLUME 10.7 fL (7.4-10.4); MONOCYTES 6.5 % (2-11); NEUTROPHILS 78.1 % (40-80); PLATELET COUNT 407 10x3/uL (130-400); RDW 15.6 % (11.5-14.5); WBC 8.3 10x3/uL (4.8-10.8)
[2018-07-25 07:38] LABS: CALC OSMOLALITY 269 mosm/kg (275-300); CALCIUM 8.6 mg/dL (8.5-10.1); CARBON DIOXIDE 25.7 mmol/L (21.0-32.0); CHLORIDE - SERUM 101 mmol/L (98-107); CREATININE - SERUM 0.6 mg/dL (0.6-1.3); GLUCOSE 125 mg/dL (74-106); POTASSIUM - SERUM 3.8 mmol/L (3.5-5.1); SODIUM 135 mmol/L (136-145); UREA NITROGEN 11 mg/dL (7-18); eGFR NON AFRICAN AMERICAN > 90 mL/min (90-120)
[2018-07-25 08:20] VITALS: BP 105/44
[2018-07-25 19:00] VITALS: BP 117/56
[2018-07-26 08:00] VITALS: BP 124/63
[2018-07-26 19:00] VITALS: BP 122/61
[2018-07-27 06:46] LABS: BASOPHILS 0.3 % (0-2); EOSINOPHILS 0.8 % (0-7); HEMATOCRIT 32.3 % (36.0-48.0); HEMOGLOBIN 10.3 g/dL (12-16); IMMATURE GRANULOCYTES 0.3 % (0-5); LYMPHOCYTES 19.3 % (15-50); MCH 28.8 pg (26.0-34.0); MCHC 31.9 g/dL (31.0-37.0); MCV 90.2 fL (80.0-100.0); MEAN PLATELET VOLUME 10.4 fL (7.4-10.4); MONOCYTES 8.6 % (2-11); NEUTROPHILS 70.7 % (40-80); PLATELET COUNT 427 10x3/uL (130-400); RBC 3.58 10x6/uL (4.00-5.40); RDW 15.9 % (11.5-14.5)
[2018-07-27 07:13] LABS: CALC OSMOLALITY 275 mosm/kg (275-300); CALCIUM 9.4 mg/dL (8.5-10.1); CARBON DIOXIDE 27.4 mmol/L (21.0-32.0); CHLORIDE - SERUM 102 mmol/L (98-107); CREATININE - SERUM 0.5 mg/dL (0.6-1.3); GLUCOSE 110 mg/dL (74-106); SODIUM 138 mmol/L (136-145); UREA NITROGEN 10 mg/dL (7-18); eGFR NON AFRICAN AMERICAN > 90 mL/min (90-120)
[2018-07-27 08:00] VITALS: BP 99/53
[2018-07-27 19:00] VITALS: BP 104/49
[2018-07-28 08:00] VITALS: BP 109/60
[2018-07-28 19:00] VITALS: BP 114/50
[2018-07-29 05:42] LABS: BASOPHILS 0.4 % (0-2); EOSINOPHILS 0.9 % (0-7); HEMATOCRIT 31.6 % (36.0-48.0); HEMOGLOBIN 10.2 g/dL (12-16); IMMATURE GRANULOCYTES 0.2 % (0-5); LYMPHOCYTES 21.2 % (15-50); MCH 29.2 pg (26.0-34.0); MCHC 32.3 g/dL (31.0-37.0); MCV 90.5 fL (80.0-100.0); MEAN PLATELET VOLUME 10.2 fL (7.4-10.4); MONOCYTES 6.9 % (2-11); NEUTROPHILS 70.4 % (40-80); PLATELET COUNT 401 10x3/uL (130-400); RBC 3.49 10x6/uL (4.00-5.40); RDW 16.2 % (11.5-14.5); WBC 5.5 10x3/uL (4.8-10.8)
[2018-07-29 06:11] LABS: CALC OSMOLALITY 275 mosm/kg (275-300); CALCIUM 8.9 mg/dL (8.5-10.1); CARBON DIOXIDE 28.3 mmol/L (21.0-32.0); CHLORIDE - SERUM 102 mmol/L (98-107); CREATININE - SERUM 0.6 mg/dL (0.6-1.3); GLUCOSE 127 mg/dL (74-106); POTASSIUM - SERUM 3.6 mmol/L (3.5-5.1); SODIUM 138 mmol/L (136-145); eGFR NON AFRICAN AMERICAN > 90 mL/min (90-120)
[2018-07-29 06:15] LABS: UREA NITROGEN 7 mg/dL (7-18)
[2018-07-29 08:00] VITALS: BP 115/53
[2018-07-29 19:45] VITALS: BP 108/48
[2018-07-30 08:56] VITALS: BP 111/47
[2018-07-30 21:54] VITALS: BP 103/50
[2018-07-30 22:17] LABS: APPEARANCE TURBID (CLEAR); BILIRUBIN NEGATIVE (NEGATIVE); COLOR YELLOW (YELLOW); GLUCOSE NEGATIVE (NEGATIVE); KETONE NEGATIVE (NEGATIVE); NITRITE POSITIVE (NEGATIVE); PROTEIN 1+ mg/dL (NEGATIVE); UROBILINOGEN NORMAL (NORMAL)
[2018-07-30 22:20] LABS: EPITHELIAL CELLS 0-5 /hpf (0-5); RED CELLS - URINE 0-5 /hpf (0-5); WHITE CELLS - URINE 25-50 /hpf (0-5)
[2018-07-30 22:21] LABS: BACTERIA MODERATE /hpf (NONE SEEN)
[2018-07-31 09:04] VITALS: BP 117/57
[2018-08-01 06:40] LABS: BASOPHILS 0.5 % (0-2); EOSINOPHILS 0.9 % (0-7); HEMATOCRIT 33.6 % (36.0-48.0); HEMOGLOBIN 10.6 g/dL (12-16); IMMATURE GRANULOCYTES 0.3 % (0-5); LYMPHOCYTES 20.5 % (15-50); MCH 28.7 pg (26.0-34.0); MCHC 31.5 g/dL (31.0-37.0); MCV 91.1 fL (80.0-100.0); MEAN PLATELET VOLUME 9.6 fL (7.4-10.4); MONOCYTES 7.1 % (2-11); NEUTROPHILS 70.7 % (40-80); PLATELET COUNT 480 10x3/uL (130-400); RBC 3.69 10x6/uL (4.00-5.40); RDW 16.3 % (11.5-14.5); WBC 6.3 10x3/uL (4.8-10.8)
[2018-08-01 07:01] LABS: CALC OSMOLALITY 278 mosm/kg (275-300); CALCIUM 9.3 mg/dL (8.5-10.1); CHLORIDE - SERUM 103 mmol/L (98-107); CREATININE - SERUM 0.6 mg/dL (0.6-1.3); GLUCOSE 126 mg/dL (74-106); POTASSIUM - SERUM 3.8 mmol/L (3.5-5.1); SODIUM 139 mmol/L (136-145); UREA NITROGEN 9 mg/dL (7-18); eGFR NON AFRICAN AMERICAN > 90 mL/min (90-120)
[2018-08-01 08:00] VITALS: BP 99/63
[2018-08-02 07:00] VITALS: BP 117/43
[2018-08-02] MEDS ORDERED: COREG 3.1253.125 MG PO (08:32)
[2018-08-02] MEDS ORDERED: LEVAQUIN250 MG PO (08:32)
== END 2018-08-02 12:29 | disposition home health service (06) | DRG 91 ==
LOC: D.REHAB 17:20 → UNDOADMIN 17:20 → D.REHAB 07-20 18:35
PROVIDERS: Emergency Medicine
DX: G72.89 Other specified myopathies (principal); J96.90 Respiratory failure, unspecified, unspecified whether with hypoxia or hypercapnia; I21.9 Acute myocardial infarction, unspecified; I50.21 Acute systolic (congestive) heart failure; J90 Pleural effusion, not elsewhere classified; R13.12 Dysphagia, oropharyngeal phase; R47.9 Unspecified speech disturbances; I25.10 Atherosclerotic heart disease of native coronary artery without angina pectoris; Z66 Do not resuscitate; Z95.5 Presence of coronary angioplasty implant and graft; I10 Essential (primary) hypertension; E78.5 Hyperlipidemia, unspecified; D64.9 Anemia, unspecified; E87.6 Hypokalemia; E83.39 Other disorders of phosphorus metabolism; R79.89 Other specified abnormal findings of blood chemistry; K75.89 Other specified inflammatory liver diseases

== ENCOUNTER 2018-10-30 17:21 | Emergency (ER) | payer MEDICARE ==
[~2018-10-30] VITALS: Ht 157.5 cm; Wt 55.9 kg
[~2018-10-30 17:21] MED LIST changes: +CALMOSEPTINE OI71 GM TOPICAL; +COREG 3.1253.125 MG PO; +D5 1/2NS 10001000 ML IV; +DIFLUCAN100 MG PO; +LAMICTAL100 MG PO; -LAMICTAL200 MG PO; +LEVAQUIN250 MG PO; +MEGACE400 MG/10 PO; +PROCALAMINE I1000 ML IV; +PROTONIX40 MG PO; +XOPENEX 0.0.63 MG/3 UPD
[2018-10-30 17:39] VITALS: Ht 157.5 cm; Wt 55.9 kg
[2018-10-30 18:42] LABS: BASOPHILS 0.2 % (0-2); EOSINOPHILS 0.6 % (0-7); IMMATURE GRANULOCYTES 0.2 % (0-5); LYMPHOCYTES 13.3 % (15-50); MCHC 32.6 g/dL (31.0-37.0); MEAN PLATELET VOLUME 10.5 fL (7.4-10.4); MONOCYTES 9.2 % (2-11); NEUTROPHILS 76.5 % (40-80); RBC 4.83 10x6/uL (4.00-5.40); WBC 9.3 10x3/uL (4.8-10.8)
[2018-10-30 18:46] LABS: APPEARANCE CLEAR (CLEAR); BILIRUBIN 1+ (NEGATIVE); COLOR YELLOW (YELLOW); GLUCOSE NEGATIVE (NEGATIVE); KETONE NEGATIVE (NEGATIVE); NITRITE NEGATIVE (NEGATIVE); PROTEIN TRACE mg/dL (NEGATIVE); UROBILINOGEN NORMAL (NORMAL)
[2018-10-30 18:47] LABS: BACTERIA FEW /hpf (NONE SEEN); RED CELLS - URINE 0-5 /hpf (0-5)
[2018-10-30 18:48] LABS: PLATELET COUNT 286 10x3/uL (130-400)
[2018-10-30 18:56] LABS: ALBUMIN 3.3 g/dL (3.4-5.0); ALKALINE PHOSPHATASE 302 U/L (46-116); ALT (SGPT) 56 U/L (10-68); AMYLASE - SERUM 20 U/L (25-115); BILIRUBIN - TOTAL 0.36 mg/dL (0.2-1.3); CALC OSMOLALITY 272 mosm/kg (275-300); CALCIUM 9.1 mg/dL (8.5-10.1); CARBON DIOXIDE 29.4 mmol/L (21.0-32.0); CHLORIDE - SERUM 98 mmol/L (98-107); CREATININE - SERUM 0.7 mg/dL (0.6-1.3); GLUCOSE 111 mg/dL (74-106); POTASSIUM - SERUM 4.2 mmol/L (3.5-5.1); PROTEIN - SERUM 7.3 g/dL (6.4-8.2); SODIUM 137 mmol/L (136-145); UREA NITROGEN 8 mg/dL (7-18); eGFR NON AFRICAN AMERICAN 87 mL/min (90-120)
[2018-10-30 18:57] LABS: LIPASE 49 U/L (73-393)
[2018-10-30] MEDS ORDERED: FLAGYL500 MG PO (21:13)
[2018-10-30] MEDS ORDERED: CIPRO500 MG PO (21:13)
[2018-10-30] MEDS ORDERED: MACROBID100 MG PO (21:17)
[2018-10-30 21:36] VITALS: BP 125/44
[2018-10-31] MEDS ORDERED: ZOFRAN ODT4 MG/UDTAB PO (14:07)
[2018-10-31] MEDS ORDERED: COMPAZINE5 MG PO (14:07)
== END 2018-10-30 21:26 | disposition home or self-care (01) ==
LOC: D.ER 17:21
PROVIDERS: Family Medicine
DX: K52.9 Noninfective gastroenteritis and colitis, unspecified (principal); N39.0 Urinary tract infection, site not specified; R10.9 Unspecified abdominal pain; E11.9 Type 2 diabetes mellitus without complications

== ENCOUNTER 2018-10-31 11:21 | Emergency (ER) | payer MEDICARE ==
[~2018-10-31] VITALS: Ht 157.5 cm; Wt 55.9 kg
[~2018-10-31 11:21] MED LIST changes: +CIPRO500 MG PO; +FLAGYL500 MG PO; +MACROBID100 MG PO
[2018-10-31 11:28] VITALS: Ht 157.5 cm; Wt 55.9 kg
[2018-10-31 12:07] LABS: BASOPHILS 0.1 % (0-2); EOSINOPHILS 0.1 % (0-7); HEMATOCRIT 41.8 % (36.0-48.0); HEMOGLOBIN 13.6 g/dL (12-16); IMMATURE GRANULOCYTES 0.3 % (0-5); LYMPHOCYTES 6.6 % (15-50); MCH 28.7 pg (26.0-34.0); MCHC 32.5 g/dL (31.0-37.0); MCV 88.2 fL (80.0-100.0); MEAN PLATELET VOLUME 10.4 fL (7.4-10.4); MONOCYTES 9.1 % (2-11); NEUTROPHILS 83.8 % (40-80); PLATELET COUNT 295 10x3/uL (130-400); RBC 4.74 10x6/uL (4.00-5.40); RDW 13.7 % (11.5-14.5)
[2018-10-31 12:17] LABS: ALBUMIN 3.1 g/dL (3.4-5.0); ANION GAP 13.6 mmol/L (8-16); BILIRUBIN - TOTAL 0.44 mg/dL (0.2-1.3); CALCIUM 8.5 mg/dL (8.5-10.1); CARBON DIOXIDE 27.9 mmol/L (21.0-32.0); CREATININE - SERUM 0.9 mg/dL (0.6-1.3); POTASSIUM - SERUM 3.5 mmol/L (3.5-5.1); PROTEIN - SERUM 7.3 g/dL (6.4-8.2)
[2018-10-31] MEDS ORDERED: ZOFRAN ODT4 MG/UDTAB PO (14:07)
[2018-10-31] MEDS ORDERED: COMPAZINE5 MG PO (14:07)
[2018-10-31 14:36] VITALS: BP 106/74
== END 2018-10-31 14:37 | disposition home or self-care (01) ==
LOC: D.ER 11:21
PROVIDERS: Family Medicine
DX: R11.2 Nausea with vomiting, unspecified (principal); E86.0 Dehydration

== ENCOUNTER 2018-11-01 09:52 | Inpatient (IN) | payer MEDICARE, OTHER ==
[~2018-11-01] VITALS: Ht 152.4 cm; Wt 59.1 kg
[~2018-11-01 09:52] MED LIST changes: +COMPAZINE5 MG PO; +ZOFRAN ODT4 MG/UDTAB PO
[2018-11-01 10:50] LABS: BASOPHILS 0.2 % (0-2); EOSINOPHILS 0.2 % (0-7); HEMATOCRIT 41.9 % (36.0-48.0); HEMOGLOBIN 13.7 g/dL (12-16); IMMATURE GRANULOCYTES 0.6 % (0-5); LYMPHOCYTES 5.6 % (15-50); MCH 28.7 pg (26.0-34.0); MCHC 32.7 g/dL (31.0-37.0); MCV 87.7 fL (80.0-100.0); MEAN PLATELET VOLUME 10.6 fL (7.4-10.4); MONOCYTES 10.4 % (2-11); PLATELET COUNT 263 10x3/uL (130-400); RBC 4.78 10x6/uL (4.00-5.40); RDW 13.7 % (11.5-14.5)
[2018-11-01 11:11] LABS: ALBUMIN 2.7 g/dL (3.4-5.0); ALKALINE PHOSPHATASE 336 U/L (46-116); ALT (SGPT) 72 U/L (10-68); BILIRUBIN - TOTAL 0.37 mg/dL (0.2-1.3); CALC OSMOLALITY 267 mosm/kg (275-300); CALCIUM 8.4 mg/dL (8.5-10.1); CARBON DIOXIDE 25.3 mmol/L (21.0-32.0); CHLORIDE - SERUM 97 mmol/L (98-107); CREATININE - SERUM 0.8 mg/dL (0.6-1.3); GLUCOSE 142 mg/dL (74-106); PROTEIN - SERUM 6.6 g/dL (6.4-8.2); SODIUM 133 mmol/L (136-145); UREA NITROGEN 12 mg/dL (7-18); eGFR NON AFRICAN AMERICAN 74 mL/min (90-120)
[2018-11-01 11:14] LABS: CREATINE KINASE 44 UL (21-215); PRO BNP 360 pg/mL (0-125); TROPONIN-I < 0.017 ng/mL (0.000-0.060)
[2018-11-01 11:15] LABS: LIPASE 40 U/L (73-393)
[2018-11-01 11:54] VITALS: BP 111/54
[2018-11-01 12:20] VITALS: BP 139/42; BMI 24.0
[2018-11-01 16:07] LABS: CKMB 0.2 U/L (0.0-3.6); CREATINE KINASE 41 UL (21-215); TROPONIN-I < 0.017 ng/mL (0.000-0.060)
[2018-11-01 16:17] VITALS: BP 139/42
--- NOTE | 2018-11-01 17:04 | NUR ---
TYLENOL GIVEN FOR TEMP 101.7.
[2018-11-01 17:56] VITALS: BP 93/47
--- NOTE | 2018-11-01 19:26 | NUR ---
PT ASLEEP LAYING ON RIGHT SIDE. RESP EVEN AND UNLABORED. BEDLOW AND CALL LIGHT IN REACH. NAME AND DATE PLACED ON BOARD. NO S/S OF DISTRESS. WILL CPOC
[2018-11-01 20:00] VITALS: BP 98/41
--- NOTE | 2018-11-01 20:14 | NUR ---
PT ASKING FOR HOME MEDS. PAGED BRITTNEE FISHER. PT RESTING IN BED. DENIES ANY NEEDS. WILL CPOC
--- NOTE | 2018-11-01 20:23 | NUR ---
SPOKE WITH BRITTNEE FISHER. LAMICTAL 100MG BID AND SYNTHROID 50MCG 0600 DAILY OF HOME MEDS MAY BE RESTARTED WELL IMODIUM 2MG Q6H PRN. CALLED PALMA HAT BLOCKING MACHINE OPERATOR TO GET MEDICATION. WILL CPOC
[2018-11-01 22:29] LABS: CKMB 0.3 U/L (0.0-3.6); CREATINE KINASE 64 UL (21-215); TROPONIN-I 0.018 ng/mL (0.000-0.060)
--- NOTE | 2018-11-01 23:17 | NUR ---
PT POTASSIUM CAME BACK 2.7 TREATED WITH IV KCL ON DAYSHIFT AND IT WENT FROM 3.0 TO 2.7 TREATING WITH ORAL KDUR. 20 MEQ GIVEN AND EDUCATED PT IN REASONING AND PLAN. PT VERBALIZED UNDERSTANDING. WILL CPOC
--- NOTE | 2018-11-01 23:53 | NUR ---
PT TEMP IS 102.5, TOOK PT SECOND BLANKET AND GAVE HER A TYLENOL ORDERED. PT VERBALIZED UNDERSTANDING. WILL RECHECK IN APPROX 30MINS.
[2018-11-02] VITALS (11 sets, daily range): BP systolic 84–112; BP diastolic 34–58; BMI 24.0
--- NOTE | 2018-11-02 00:44 | NUR ---
PT TEMP IS NOW 99.2 WILL CONTINUE TO MONITOR
--- NOTE | 2018-11-02 01:23 | NUR ---
2ND POTASSIUM GIVEN. PT RESTING IN BED LAYING ON LEFT SIDE. BEDLOW AND CALL LIGHT IN REACH. WILL CPOC
--- NOTE | 2018-11-02 01:37 | NUR ---
PT CALLED UP TO BATHROOM WITH STANDBYE ASSIST. PT INCONT A SMALL AMOUNT OF BM, CHANGED BREIF. PT HAD A SMALL BM DIARRHEA. UNABLE TO OBTAIN URINE AT THIS TIME. STOOL MIXED IN. PT BACK TO BED. BEDLOW AND CALL LIGHT IN REACH. WILL CPOC
[2018-11-02 06:39] LABS: BASOPHILS 0.1 % (0-2); EOSINOPHILS 0.1 % (0-7); HEMATOCRIT 38.6 % (36.0-48.0); HEMOGLOBIN 12.6 g/dL (12-16); IMMATURE GRANULOCYTES 1.2 % (0-5); LYMPHOCYTES 12.5 % (15-50); MCH 28.6 pg (26.0-34.0); MCHC 32.6 g/dL (31.0-37.0); MCV 87.5 fL (80.0-100.0); MONOCYTES 11.5 % (2-11); NEUTROPHILS 74.6 % (40-80); PLATELET COUNT 224 10x3/uL (130-400); RBC 4.41 10x6/uL (4.00-5.40); RDW 13.8 % (11.5-14.5); WBC 15.7 10x3/uL (4.8-10.8)
--- NOTE | 2018-11-02 07:22 | NUR ---
LAB HAS NOT BROUGHT SYNTHROID YET AT THIS TIME. CALLED 0630 STILL NOT HERE. PASSED IN REPORT
[2018-11-02 07:52] LABS: ALBUMIN 2.2 g/dL (3.4-5.0); ALKALINE PHOSPHATASE 303 U/L (46-116); ALT (SGPT) 60 U/L (10-68); BILIRUBIN - TOTAL 0.39 mg/dL (0.2-1.3); CALC OSMOLALITY 268 mosm/kg (275-300); CALCIUM 7.8 mg/dL (8.5-10.1); CHLORIDE - SERUM 99 mmol/L (98-107); CKMB 0.3 U/L (0.0-3.6); CREATINE KINASE 65 UL (21-215); MAGNESIUM - SERUM 1.6 mg/dL (1.8-2.4); POTASSIUM - SERUM 3.1 mmol/L (3.5-5.1); PROTEIN - SERUM 5.4 g/dL (6.4-8.2); SODIUM 135 mmol/L (136-145); TROPONIN-I < 0.017 ng/mL (0.000-0.060); UREA NITROGEN 9 mg/dL (7-18)
[2018-11-02 07:57] LABS: GLUCOSE 93 mg/dL (74-106)
[2018-11-02 07:58] LABS: eGFR NON AFRICAN AMERICAN 57 mL/min (90-120)
--- NOTE | 2018-11-02 08:21 | NUR ---
AM MEDS GIVEN AT THIS TIME. WAITING ON PHARMACY TO BRING THE DANISH ROGERS FROM PHARMACY AWARE. WILL ALSO GIVE PT TYLENOL FOR ELEVATED TEMP.
--- NOTE | 2018-11-02 11:47 | NUR ---
ADMINISTERED 4MG OF ZOFRAN FOR NAUSEA, ALSO GAVE 1MG OF MORPHINE FOR PAIN LEVEL OF 10/10. IVPB FLAGYL HUNG AT THIS TIME. PT IN BED, TRYING TO DRINK CONTRAST FOR CT OF ABD. PT DENIES ANY OTHER NEEDS AT THIS TIME. CALL LIGHT IN REACH, NAD NOTED, WILL CONTINUE TO MONITOR.
--- NOTE | 2018-11-02 13:01 | NUR ---
PT TO CT.
--- NOTE | 2018-11-02 16:23 | NUR ---
PT C/O ABD PAIN, BP LOW TO GIVE MORPHINE. WANTS STATES THAT SHE WANTS HYDROCODONE OR DIALUDID FOR PAIN, INFORMED PT THAT SHE IS ALLERGIC TO HYDROMORPHONE SO SHE CANNOT HAVE DILAUDID, WILL CALL DOCTOR AND SEE IF PT CAN HAVE SOMETHING ELSE FOR PAIN. CALLED BRITTNEE HARRELL AND RECEIVED NEW ORDER FOR NORCO 5 Q4PRN. ADMINISTERED NORCO TO PT. PT DOES NOT THINK SHE CAN KEEP IT DOWN, WANTS SOMETHING ELSE FOR PAIN, INFORMED PT WE NEED TO SEE IF SHE CAN KEEP IT DOWN AND THEN GO FROM THERE.
--- NOTE | 2018-11-02 17:25 | NUR ---
PAGED BRITTNEE, WAITING SOCIAL SERVICE DIRECTOR BACK.
--- NOTE | 2018-11-02 18:27 | NUR ---
SPOKE WITH COATING AND BAKING OPERATOR AND INFORMED HER ABOUT PT'S FAMILY CONCERN, AND ABOUT PT'S BP BEING LOW. COATING AND BAKING OPERATOR STATED THAT SHE PT MIGHT NEED TO BE IN ICU, WILL NOTIFY THIS NURSE WITH FURTHER ORDERS.
--- NOTE | 2018-11-02 18:36 | NUR ---
RECHECKED PT'S BP AFTER INFUSING HER IV FLUIDS. BP NOW 90/40. PT STATES THAT HER ABD FEEL A LITTLE BIT BETTER ASKING WHAT I GAVE HER EARILER, INFOMED PT THAT I GAVE HER ZOFRAN. PT STATED " I NEED SOME MORE NOW." INFORMED PT THAT IT IS ORDERED FOR Q4PRN SO ITS NOT TIME FOR IT NOW.
--- NOTE | 2018-11-02 18:48 | NUR ---
NASEEM POZO HUNG AT THIS TIME. INFORMED PT THAT NEXT TIME THAT SHE COULD HAVE ZOFRAN WOULD BE AT 2099.
--- NOTE | 2018-11-02 19:31 | NUR ---
UPDATE CALLED TO BRITTNEE HARRELL [facility], NEW ORDERS RECEIVED,
--- NOTE | 2018-11-02 19:37 | NUR ---
BOLUS OF NS STARTED AT THIS TIME. PT RESTING COMFORTABLY IN BED WITH EYES CLOSED, CALL LIGHT IN REACH, NAD NOTED.
--- NOTE | 2018-11-02 21:45 | NUR ---
PT ARRIVED ON UNIT VIA BED, HOOKED TO MONITORS, PT IS ALERT AND ORIENTED, ON RA WITH 92% O2 SAT. ALL PPP, VSS, CALL LIGHT IN REACH
[2018-11-03] VITALS (20 sets, daily range): BP systolic 96–142; BP diastolic 48–94; Ht 152.4 cm; Wt 59.1 kg
--- NOTE | 2018-11-03 01:20 | NUR ---
PT ELDER COUNSELOR LIGHT. PARTIAL BB LINEN CHANGE ADM. SMALL SMEAR NOTED ON REJI. DENIES FURTHER NEEDS. RESTING COMFORTABLY
--- NOTE | 2018-11-03 03:19 | NUR ---
REASSESSMENT COMPLETE PER FLOW SHEET. VSS. NO NEW CHANGES. WILL CONTINUE TO MONITOR
[2018-11-03 04:12] LABS: HEMATOCRIT 35.1 % (36.0-48.0); HEMOGLOBIN 11.3 g/dL (12-16); MCH 28.1 pg (26.0-34.0); MCHC 32.2 g/dL (31.0-37.0); MCV 87.3 fL (80.0-100.0); MEAN PLATELET VOLUME 10.1 fL (7.4-10.4); PLATELET COUNT 271 10x3/uL (130-400); RBC 4.02 10x6/uL (4.00-5.40)
[2018-11-03 04:14] LABS: INR 1.49 (0.85-1.17); PROTIME 17.4 SECONDS (11.6-15.0)
[2018-11-03 04:26] LABS: ALBUMIN 1.8 g/dL (3.4-5.0); ALKALINE PHOSPHATASE 240 U/L (46-116); ALT (SGPT) 45 U/L (10-68); AMYLASE - SERUM 11 U/L (25-115); BILIRUBIN - TOTAL 0.29 mg/dL (0.2-1.3); CALCIUM 7.2 mg/dL (8.5-10.1); CARBON DIOXIDE 23.2 mmol/L (21.0-32.0); CHLORIDE - SERUM 99 mmol/L (98-107); GLUCOSE 86 mg/dL (74-106); MAGNESIUM - SERUM 1.5 mg/dL (1.8-2.4); PRE-ALBUMIN 6.2 mg/dL (18.0-35.7); PROTEIN - SERUM 4.8 g/dL (6.4-8.2); SODIUM 133 mmol/L (136-145)
[2018-11-03 04:38] LABS: LYMPHOCYTES 12 % (15-50); MONOCYTES 8 % (2-11); NEUTROPHILS 30 % (40-80)
[2018-11-03 04:39] LABS: PLATELET ESTIMATE NORMAL
[2018-11-03 04:42] LABS: CALC OSMOLALITY 261 mosm/kg (275-300); CREATININE - SERUM 0.6 mg/dL (0.6-1.3); LIPASE 36 U/L (73-393); POTASSIUM - SERUM 2.9 mmol/L (3.5-5.1); UREA NITROGEN 5 mg/dL (7-18); eGFR NON AFRICAN AMERICAN > 90 mL/min (90-120)
[2018-11-03 05:02] LABS: C-REACTIVE PROTEIN 26.4 mg/dL (0.0-0.9)
[2018-11-03 05:15] LABS: ERYTHROCYTE SEDIMENTATION RATE 26 mm/hr (0-30)
--- NOTE | 2018-11-03 05:25 | NUR ---
PT RESTING AT THIS TIME, WILL CON'T TO MONITOR
--- NOTE | 2018-11-03 08:08 | NUR ---
INCONTINENT URINE EPISODE AT THIS TIME. COMPLETE LINEN CHANGE PROVIDED. NO FRUTHER NEEDS AT THIS TIME. WILL CONTINUE TO MONITOR.
--- NOTE | 2018-11-03 09:17 | NUR ---
NUTRITION F/U PT NOW IN ICU. CLEAR LIQUID DIET>AAT. PROCALAMINE @ 30 CC/HR PROVIDING ~176 KCAL, 22 GM PROTEIN PER DAY. SEVERE MALNUTRITION OF CHRONIC ILLNESS R/T DX, PMH AEB 1)=/< 75% INTAKE EST ENERGY NEEDS =/> 1 MONTH 2)WT LOSS > 7.5% IN THREE MONTHS RECOMMEND DECREASE IV FLUIDS TO KVO INCREASE PROCALAMINE TO 75 CC/HR. CHECK TRIGLYCERIDES, IF < 400 START 20% INTRALIPIDS//[address] FOLLOWING
--- NOTE | 2018-11-03 11:02 | NUR ---
UA COLLECTED AT THIS TIME USING IN AND OUT CATH. USED STERILE TECHNIQUE. PARTIAL LINEN CHANGE PROVIDED AT THIS TIME.
[2018-11-03 11:09] LABS: APPEARANCE CLEAR (CLEAR); BILIRUBIN NEGATIVE (NEGATIVE); COLOR DK YELLOW (YELLOW); GLUCOSE NEGATIVE (NEGATIVE); KETONE SMALL mg/dL (NEGATIVE); NITRITE NEGATIVE (NEGATIVE); PROTEIN NEGATIVE (NEGATIVE); UROBILINOGEN NORMAL (NORMAL)
[2018-11-03 11:15] LABS: BACTERIA FEW /hpf (NONE SEEN); EPITHELIAL CELLS RARE /hpf (0-5); GRANULAR CAST OCC /lpf (NONE SEEN); HYALINE CAST OCC /lpf (NONE SEEN); MUCUS <1+ /lpf (NONE SEEN); RED CELLS - URINE OCC /hpf (0-5); WHITE CELLS - URINE 0-5 /hpf (0-5)
[2018-11-03 11:16] LABS: AMORPHOUS SEDIMENT <1+ /lpf (NONE SEEN)
--- NOTE | 2018-11-03 12:15 | NUR ---
STOOL SAMPLE COLLECTED AND SENT TO LAB.
--- NOTE | 2018-11-03 16:06 | NUR ---
MODERATED AMOUNT OF LOOSE YELLOW/BROWN STOOL NOTED AT THIS TIME. BED BATH GIVEN. COMPLETE LINEN CHANGE PROVIDED. SPOUSE AT BEDSIDE. NO FURTHER NEEDS AT THIS TIME. WILL CONTINUE TO MONITOR.
--- NOTE | 2018-11-03 19:00 | NUR ---
REPORT RECIEVED, SHIFT ASSESSMENT COMPLETE, PLEASE SEE FLOW SHEETS FOR DETAILS. PATIENT WAKES EASILY, STATES PAIN 6/10 AND TOLERABLE, DOES NOT WANT PAIN MEDS ATT. ALERT AND ORIENTED OTHERWISE. DENIES NEEDS. LUNGS CLEAR. BS HYPERACTIVE. S1S2 HEARD AND PPP, RRR ON CM. VSS, BED LOW AND LOCKED, CALL LIGHT IN REACH. WILL CPOC.
--- NOTE | 2018-11-03 21:00 | NUR ---
TOLERATED PM MEDS WELL, HAD ASKED FOR PAIN MEDS, THESE WERE PROVIDED PER ORDERS. DENIES ANY OTHER NEEDS ATT. VSS, BED LOW AND LOCKED, CALL LIGHT IN REACH. WILL CPOC.
--- NOTE | 2018-11-03 23:00 | NUR ---
REASSESSMENT COMPLETE, PLEASE SEE FLOW SHEETS FOR DETAILS. NO ACUTE CHANGES FROM PREVIOUS ASSESSMENT TO NOTE. VSS, BED LOW AND LOCKED, CALL LIGHT IN REACH. WILL CPOC.
[2018-11-04] VITALS (24 sets, daily range): BP systolic 93–148; BP diastolic 51–108
--- NOTE | 2018-11-04 01:00 | NUR ---
SLEEPING, VSS, BED LOW AND LOCKED, CALL LIGHT IN REACH. WILL CPOC.
--- NOTE | 2018-11-04 03:00 | NUR ---
REASSESSMENT COMPLETE, PLEASE SEE FLOW SHEETS FOR DETAILS. NO ACUTE CHANGES TO NOTE. VSS, BED LOW AND LOCKED, CALL LIGHT IN REACH, DENIES PAIN/NEEDS. WILL CPOC.
[2018-11-04 03:02] LABS: BASOPHILS 0 % (0-2); EOSINOPHILS 0.8 % (0-7); HEMATOCRIT 34.3 % (36.0-48.0); HEMOGLOBIN 11.3 g/dL (12-16); IMMATURE GRANULOCYTES 0.5 % (0-5); LYMPHOCYTES 6.6 % (15-50); MCH 28.3 pg (26.0-34.0); MCHC 32.9 g/dL (31.0-37.0); MEAN PLATELET VOLUME 10.4 fL (7.4-10.4); MONOCYTES 5.8 % (2-11); NEUTROPHILS 86.3 % (40-80); PLATELET COUNT 295 10x3/uL (130-400); RBC 3.99 10x6/uL (4.00-5.40); RDW 14.2 % (11.5-14.5); WBC 21.9 10x3/uL (4.8-10.8)
[2018-11-04 03:06] LABS: INR 1.24 (0.85-1.17); PROTIME 15.1 SECONDS (11.6-15.0)
[2018-11-04 03:13] LABS: ALBUMIN 1.6 g/dL (3.4-5.0); ALKALINE PHOSPHATASE 220 U/L (46-116); ALT (SGPT) 34 U/L (10-68); BILIRUBIN - TOTAL 0.25 mg/dL (0.2-1.3); CALC OSMOLALITY 270 mosm/kg (275-300); CALCIUM 7.2 mg/dL (8.5-10.1); CARBON DIOXIDE 23.4 mmol/L (21.0-32.0); CHLORIDE - SERUM 104 mmol/L (98-107); CREATININE - SERUM 0.4 mg/dL (0.6-1.3); GLUCOSE 91 mg/dL (74-106); POTASSIUM - SERUM 4.1 mmol/L (3.5-5.1); PROTEIN - SERUM 4.5 g/dL (6.4-8.2); SODIUM 137 mmol/L (136-145); UREA NITROGEN 4 mg/dL (7-18); eGFR NON AFRICAN AMERICAN > 90 mL/min (90-120)
--- NOTE | 2018-11-04 05:00 | NUR ---
RESTING, VSS, BED LOW AND LOCKED, CALL LIGHT IN REACH. WILL CPOC.
--- NOTE | 2018-11-04 07:00 | NUR ---
BEDSIDE SHIFT REPORT RECEIVED AT THIS TIME. SHIFT ASSESSMENT COMPLETE PER FLOWSHEET. PATIENT IS RESTING SUPINE IN BED. BREAKFAST TRAY BROUGHT IN THE ROOM. PT DENIES ANY PAIN OR NEEDS AT THIS TIME. CALL LIGHT WITHIN REACH AND SIDE RAILS UP X2. VSS, WILL CONTINUE TO MONITOR CLOSELY.
--- NOTE | 2018-11-04 09:00 | NUR ---
PT ASSISTED TO BEDSIDE COMMODE AT THIS TIME. PT VOIDED 500 CC OF CONCENTRATED YELLOW URINE. WILL DOCUMENT IN I&O FLOWSHEET. VSS, WILL CONTINUE TO MONITOR PATIENT CLOSELY.
--- NOTE | 2018-11-04 09:33 | NUR ---
DR. COTE BY TO SEE PATIENT AT THIS TIME. VERBAL ORDERS GIVEN TO XSFER PATIENT IF GI CLEARS HER TO GO TO THE FLOOR. WILL DISCUSS WITH GI WHEN THEY ROUND. WILL CONTINUE TO MONITOR CLOSELY.
--- NOTE | 2018-11-04 11:00 | NUR ---
REASSESSMENT COMPLETE PER FLOWSHEET. NO ACUTE CHANGES NOTED. VSS, WILL CONTINUE TO MONITOR CLOSELY.
--- NOTE | 2018-11-04 12:30 | NUR ---
PT ASSISTED TO BEDSIDE COMMODE. PT VOIDED APPROXIMATELY 200 CC AT THIS TIME. ASSISTED BACK INTO BED. WILL DOCUMENT IN I&O FLOWSHEET. VSS, WILL CONTIUE TO MONITOR CLOSELY.
--- NOTE | 2018-11-04 15:00 | NUR ---
REASSESSMENT COMPLETE PER FLOWSHEET. NO ACUTE CHANGES NOTED. VSS, WILL CONTINUE TO MONITOR CLOSELY.
[2018-11-05] VITALS (19 sets, daily range): BP systolic 99–161; BP diastolic 58–113
[2018-11-05 04:14] LABS: BASOPHILS 0.2 % (0-2); EOSINOPHILS 2.6 % (0-7); HEMOGLOBIN 12.3 g/dL (12-16); IMMATURE GRANULOCYTES 0.7 % (0-5); LYMPHOCYTES 16.7 % (15-50); MCH 28.4 pg (26.0-34.0); MCHC 33.2 g/dL (31.0-37.0); MCV 85.5 fL (80.0-100.0); MONOCYTES 6.3 % (2-11); NEUTROPHILS 73.5 % (40-80); PLATELET COUNT 293 10x3/uL (130-400); RBC 4.33 10x6/uL (4.00-5.40); RDW 14.2 % (11.5-14.5); WBC 10.7 10x3/uL (4.8-10.8)
[2018-11-05 04:19] LABS: ALBUMIN 1.7 g/dL (3.4-5.0); ALKALINE PHOSPHATASE 220 U/L (46-116); ALT (SGPT) 30 U/L (10-68); BILIRUBIN - TOTAL 0.23 mg/dL (0.2-1.3); CALC OSMOLALITY 273 mosm/kg (275-300); CALCIUM 7.4 mg/dL (8.5-10.1); CARBON DIOXIDE 25.9 mmol/L (21.0-32.0); CHLORIDE - SERUM 106 mmol/L (98-107); CREATININE - SERUM 0.5 mg/dL (0.6-1.3); GLUCOSE 96 mg/dL (74-106); MAGNESIUM - SERUM 1.8 mg/dL (1.8-2.4); POTASSIUM - SERUM 3.2 mmol/L (3.5-5.1); PROTEIN - SERUM 4.7 g/dL (6.4-8.2); SODIUM 139 mmol/L (136-145); UREA NITROGEN 2 mg/dL (7-18); eGFR NON AFRICAN AMERICAN > 90 mL/min (90-120)
--- NOTE | 2018-11-05 07:00 | NUR ---
REC'ED REPORT FROM OUT GOING RN - PT AA&oX 3 - VOICED CONCERNS R/T OT GETTING HER NORMAL B/P MEDICATIONS (BETA KESHIA). wILL REIVEW WITH - CPOC
--- NOTE | 2018-11-05 08:28 | NUR ---
ASSESSMENT COMPLETE - SPOUSE AT BEDSIDE FOR VISITITION - UNABLE TO ANSWERE QUESTIONS FROMSPOUSE PATIENT TOLD SPOUSE TO 'SHUT UP'. PT EATING BREAKFAST TRAY - CPOUC
--- NOTE | 2018-11-05 09:50 | NUR ---
PT INFORMED THIS RN SHE IS A DNR - SPOUSE IN ROOM AND IS IN AGREEMENT - WILL NOTIFY OF ABOVE
--- NOTE | 2018-11-05 10:14 | NUR ---
DR. COTE AT BEDSIDE - MD CONFIRMED DNR STATUS WITH PT - CPOC
--- NOTE | 2018-11-05 10:16 | NUR ---
INFORMED DR. COTE OF PT'S REQUEST FOR SYMBICORT RX - AWAITING ORDERS - CPOX
--- NOTE | 2018-11-05 11:00 | NUR ---
ASSESSMENT COMPLETE - PT UP TO BSC ~1300 CLEAR YELLOW URINE OUTPUT - CPOC
--- NOTE | 2018-11-05 11:32 | NUR ---
ASSESSMENT COMPLETE - MEDICATIONS GIVEN - LUNCH TRAY PROVIDED - PT VOICED NO CONCERNS. CPOC
--- NOTE | 2018-11-05 12:00 | NUR ---
SPOUSE AT BEDSIDE - PT VOICED NO CONCERNS - CPOC
--- NOTE | 2018-11-05 13:15 | NUR ---
PT UP TO BSC - URINATION AND LIQUID STOOL - PT ASSISTED BACK TO BED WITH SBA - VSS = CPOC
--- NOTE | 2018-11-05 16:38 | NUR ---
TRANFERRED PT WITH ALL PERSONALITEMS TO ROOM 2230 - RN AT BEDSIDE DURING TRANSFER
--- NOTE | 2018-11-05 18:41 | NUR ---
CLINICAL REHAB LIAISON NOTES - CONTINUE CLINICAL REHAB LIAISON PLAN OF CARE
--- NOTE | 2018-11-05 22:15 | NUR ---
PT C/O "STINGING" CHEST PAIN AFTER DRINKING CARBONATED SODA. TELEMETRY READING 83 SINUS RHYTHM W/BBB. GAVE SCHEDULED PEPCID IV PUSH. PT C/O OF SOME ACID REFLUX AND CONTINUED CHEST PAIN. CALLED DR. COTE. GAVE GI COCTAIL PER TELEPHONE ORDER. PT STATES SHE IS FEELING MUCH BETTER NOW. SHE HAS "BURPED" AND PAIN HAS DECREASED. NO OTHER NEEDS. WILL CONTINUE TO MONITOR.
[2018-11-06] MEDS ORDERED: ZETIA10 MG PO (03:58)
[2018-11-06] MEDS ORDERED: SINGULAIR10 MG PO (04:02)
[2018-11-06 04:16] VITALS: BP 134/62
[2018-11-06 05:11] LABS: BASOPHILS 0.2 % (0-2); EOSINOPHILS 4.3 % (0-7); HEMATOCRIT 35.4 % (36.0-48.0); HEMOGLOBIN 11.5 g/dL (12-16); IMMATURE GRANULOCYTES 0.7 % (0-5); LYMPHOCYTES 24.1 % (15-50); MCHC 32.5 g/dL (31.0-37.0); MCV 86.1 fL (80.0-100.0); MEAN PLATELET VOLUME 9.4 fL (7.4-10.4); MONOCYTES 8.4 % (2-11); NEUTROPHILS 62.3 % (40-80); RBC 4.11 10x6/uL (4.00-5.40); RDW 14.5 % (11.5-14.5)
[2018-11-06 05:13] LABS: PLATELET COUNT 356 10x3/uL (130-400); WBC 5.6 10x3/uL (4.8-10.8)
[2018-11-06 05:23] LABS: ALBUMIN 1.9 g/dL (3.4-5.0); ALKALINE PHOSPHATASE 219 U/L (46-116); ALT (SGPT) 29 U/L (10-68); BILIRUBIN - TOTAL 0.25 mg/dL (0.2-1.3); CALC OSMOLALITY 281 mosm/kg (275-300); CALCIUM 7.7 mg/dL (8.5-10.1); CARBON DIOXIDE 28.3 mmol/L (21.0-32.0); CHLORIDE - SERUM 106 mmol/L (98-107); CREATININE - SERUM 0.4 mg/dL (0.6-1.3); GLUCOSE 115 mg/dL (74-106); MAGNESIUM - SERUM 1.8 mg/dL (1.8-2.4); SODIUM 143 mmol/L (136-145); UREA NITROGEN 2 mg/dL (7-18); eGFR NON AFRICAN AMERICAN > 90 mL/min (90-120)
[2018-11-06 05:25] LABS: POTASSIUM - SERUM 2.7 mmol/L (3.5-5.1)
--- NOTE | 2018-11-06 06:00 | NUR ---
PT VOMITED SHORTLY AFTER RECEIVING MORPHINE IV PUSH FOR A HEADACHE. GAVE ZOFRAN IV. CRITICAL LOW POTASSIUM 2.7 - GAVE 1ST OF 3 DOSES OF K-DUR 20MEQ PO PER ELECTROLYTE PROTOCOL. NO OTHER NEEDS. WILL CONTINUE TO MONITOR.
--- NOTE | 2018-11-06 09:20 | MORECARE ---
CASE MANAGEMENT DISCHARGE SUMMARY PATIENT: JAISON HORVATH UNIT: [id number] ADM DATE: 11/02/18 AGE: 73 : 44 SEX: F ROOM/BED: D.2230 AUTHOR: YARY SAUNDERS PHYSICIAN: REFERRING PHYSICIAN: MEGHANA COTE MD DATE OF SERVICE: 11/06/18 Discharge Plan Patient Name: JAISON HORVATH Facility: [facility]:[place] : 1945 Planned Disposition: Home Anticipated Discharge Date: 11/08/18 Discharge Date: Expected LOS: 6 Initial Reviewer: [email or web address] Initial Review Date: 11/06/2018 Generated: 11/06/18 10:20 am DCPIA - Discharge Planning Initial Assessment Updated by [email or web address]: Rebecca Feliciano on 11/06/18 9:18 am * Is the patient Alert and Oriented? Yes * How many steps to enter\exit or inside your home? * PCP DR. ZHU * [facility] [place] * Preadmission Environment Home with Family * ADLs Independent * Equipment Cane Glucometer Shower Chair Wheelchair * List name and contact numbers for known caregivers / representatives who currently or will assist patient after discharge: GIORGIO HORVATH (SPOUSE) [phone] * Verbal permission to speak to the caregivers and representatives has been obtained from the patient. Yes * Community resources currently utilized None * Additional services required to return to the preadmission environment? Yes * Can the patient safely return to the preadmission environment? Yes * Has this patient been hospitalized within the prior 30 days at any hospital? No Coverage Notice Reviewer: [email or web address] Pavan Cifuentes Ida Notice Issued Date-Time: 11/02/2018 11:25 Notice Type: Medicare Outpatient Observation Notice Notice Delivered To: Patient Relationship to Patient: Self Mountain Services Manager Name: Delivery Method: HAND - Hand Delivered Nicky Days: Prior Verbal Notification: Recipient Understood Notice: Yes Recipient Signature: Yes Med Rec Note Co-signed by Attending: Coverage Notice Comment: Patient Name: JAISON HORVATH Page [phone] at 0920 All edits/amendments must be made on the electronic document DICTATION DATE: 11/06/18919 INFORMATION RESOURCES MANAGER: DM 11/06/1820 RPT#: [id number] DC DATE: STATUS: ADM IN [facility] [address] [place] [address] END OF REPORT
--- NOTE | 2018-11-06 09:27 | MORECARE ---
CASE MANAGEMENT DISCHARGE SUMMARY PATIENT: JAISON HORVATH UNIT: [id number] ADM DATE: 11/02/18 AGE: 73 : 44 SEX: F ROOM/BED: D.2230 AUTHOR: YARY SAUNDERS PHYSICIAN: REFERRING PHYSICIAN: MEGHANA COTE MD DATE OF SERVICE: 11/06/18 Discharge Plan Patient Name: JAISON HORVATH Facility: [facility]:[place] : 1945 Planned Disposition: Home Anticipated Discharge Date: 11/08/18 Discharge Date: Expected LOS: 6 Initial Reviewer: [email or web address] Initial Review Date: 11/06/2018 Generated: 11/06/18 10:27 am Comments DCP- Discharge Planning Updated by [email or web address]: Rebecca Feliciano on 11/06/18 8:[address] Patient Name: JAISON HORVATH Admission Status: ER Accout number: [id number] Admission Date: 11-02-2018 : 1945 Admission Diagnosis:NONINFECTIVE GASTROENTERITIS AND COLITIS, UNSPECIFIED Attending: MEGHANA COTE Current LOS: 4 Anticipated DC Date: 11-08-2018 Planned Disposition: Home Primary Insurance: MEDICARE A & B Discharge Planning Comments: CM MET WITH PATIENT AND SPOUSE (GIORGIO) REGARDING D/C NEEDS AND PLANS. PATIENT STATED HER SPOUSE WOULD DRIVE HER HOME AT DISCHARGE AND ONCE THERE ARE NO STEPS OR STAIRS AT HER HOME. PATIENT STATED SHE IS INDEPENDENT WITH HER CARE AND HAS A WHEELCHAIR, CANE, SHOWER CHAIR, AND GLUCOMETER AT HER HOME IF NEEDED. PATIENTS PCP IS DR. ZHU AND USES [facility] AT [facility] FOR HER PHARMACY NEEDS. PATIENT WANTS TO SPEAK WITH DOCTOR REGARDING HOME HEALTH BEFORE SHE CHOOSES ONE. SHE IS NOT SURE IF IT WILL BE NEEDED. CM WILL CONTINUE TO FOLLOW PATIENT WITH D/C NEEDS AND PLANS. PCP DR[facility] GIORGIO HORVATH (SPOUSE) [phone] Seat Cover Cutter: Rebecca Feliciano DCPIA - Discharge Planning Initial Assessment Updated by [email or web address]: Rebecca Feliciano on 11/06/18 9:18 am * Is the patient Alert and Oriented? Yes * How many steps to enter\exit or inside your home? * PCP DR. ZHU * [facility] [place] * Preadmission Environment Home with Family * ADLs Independent * Equipment Cane Glucometer Shower Chair Wheelchair * List name and contact numbers for known caregivers / representatives who currently or will assist patient after discharge: GIORGIO HORVATH (SPOUSE) [phone] * Verbal permission to speak to the caregivers and representatives has been obtained from the patient. Yes * Community resources currently utilized None * Additional services required to return to the preadmission environment? Yes * Can the patient safely return to the preadmission environment? Yes * Has this patient been hospitalized within the prior 30 days at any hospital? No Coverage Notice Reviewer: [id number] Pavan Kay Notice Issued Date-Time: 11/02/2018 11:25 Notice Type: Medicare Outpatient Observation Notice Notice Delivered To: Patient Relationship to Patient: Self Assistant Floor Covering Printer Name: Delivery Method: HAND - Hand Delivered Nicky Days: Prior Verbal Notification: Recipient Understood Notice: Yes Recipient Signature: Yes Med Rec Note Co-signed by Attending: Coverage Notice Comment: Last DP export: 11/06/18 8:20 Patient Name: JAISON HORVATH Page [phone] at 0927 All edits/amendments must be made on the electronic document DICTATION DATE: 11/06/18925 BOMBSIGHT SPECIALIST: BLUE 11/06/18925 RPT#: [id number] DC DATE: STATUS: ADM IN [facility] [address] [place] [address] END OF REPORT
[2018-11-06 09:31] VITALS: BP 132/65
[2018-11-06 12:00] VITALS: BP 151/92
[2018-11-06 16:00] VITALS: BP 138/70
--- NOTE | 2018-11-06 16:29 | NUR ---
CRITICAL LAB RECIEVED OF POTASSIUM 2.9 AFTER 3 DOSES OF PO K+ PER PROTOCOL.
--- NOTE | 2018-11-06 18:14 | NUR ---
STARTED 1/6 KCL RIDER PER ELECTROLYTE PROTCOL.
--- NOTE | 2018-11-06 19:08 | NUR ---
ADMINISTERED 2/6 KCL RIDER VIA IV.
[2018-11-06 21:13] VITALS: BP 119/51
[2018-11-07] VITALS: BP 109/54; BP 117/58
--- NOTE | 2018-11-07 03:20 | NUR ---
SIXTH AND FINAL BAG OF KCL RIDER INFUSION COMPLETE. RECHECK POTASSIUM IN 2 HOURS WITH AM DRAW. PT RESTING COMFORTABLY. NO COMPLAINTS. NO DISTRESS. ENTERIC ISOLATION PRECAUTIONS OBSERVED.
[2018-11-07 04:00] VITALS: BP 122/47
[2018-11-07 06:38] LABS: BASOPHILS 0.4 % (0-2); EOSINOPHILS 4.5 % (0-7); HEMOGLOBIN 12.2 g/dL (12-16); IMMATURE GRANULOCYTES 0.9 % (0-5); LYMPHOCYTES 24.8 % (15-50); MCH 27.9 pg (26.0-34.0); MCHC 32.1 g/dL (31.0-37.0); MEAN PLATELET VOLUME 9.5 fL (7.4-10.4); MONOCYTES 12.4 % (2-11); RBC 4.37 10x6/uL (4.00-5.40); RDW 14.7 % (11.5-14.5); WBC 5.6 10x3/uL (4.8-10.8)
[2018-11-07 06:44] LABS: PLATELET COUNT 449 10x3/uL (130-400)
[2018-11-07 06:55] LABS: ALKALINE PHOSPHATASE 286 U/L (46-116); BILIRUBIN - TOTAL 0.27 mg/dL (0.2-1.3); CALCIUM 8.5 mg/dL (8.5-10.1); CARBON DIOXIDE 29.6 mmol/L (21.0-32.0); CHLORIDE - SERUM 108 mmol/L (98-107); GLUCOSE 116 mg/dL (74-106); PROTEIN - SERUM 5.9 g/dL (6.4-8.2); SODIUM 145 mmol/L (136-145)
[2018-11-07 06:56] LABS: CALC OSMOLALITY 286 mosm/kg (275-300); CREATININE - SERUM 0.6 mg/dL (0.6-1.3); UREA NITROGEN 4 mg/dL (7-18); eGFR NON AFRICAN AMERICAN > 90 mL/min (90-120)
[2018-11-07 06:57] LABS: ALBUMIN 2.4 g/dL (3.4-5.0); ALT (SGPT) 37 U/L (10-68); POTASSIUM - SERUM 4.2 mmol/L (3.5-5.1)
[2018-11-07 09:39] VITALS: BP 145/88
--- NOTE | 2018-11-07 12:30 | NUR ---
CALLED PHARMACY IN REGARDS TO NOT HAVING ORAL VANC TO ADMINSTER. INFORMED ME THAT IT WOULD BE BROUGHT UP SOON.
[2018-11-07 13:21] VITALS: BP 129/66
[2018-11-07 17:20] VITALS: BP 148/56
--- NOTE | 2018-11-07 19:05 | NUR ---
SITTING UP RIGHT IN BED, AWAKE AND ALERT, EVEN UNLABORED BREATHING, IV IN RIGHT FOREARM, PATENT, FLUIDS INFUSING AT 30ML, DENIES ANY NEEDS OR DISCOMFORTS OR NEED, BED LOWERED AND LOCKED, CALL LIGHT WITHIN REACH. CPOC
--- NOTE | 2018-11-07 20:22 | NUR ---
AWAKE,ALERT,NO COMPLAINTS VOICED. IV INFUSING TO RFA. PATIENT REQUESTING TO BE SL. STATES.DONT NEED IT GOING HOME TOMORROW. ALSO TOOK TELEMENTRY MONITOR OFF,REFUSING TO WEAR ANYMORE.RESP UNLAOBRED. NO DISTRESS NOTED. CL IN REACH
[2018-11-07 20:46] VITALS: BP 132/62
[2018-11-07 21:06] LABS: OVA + PARASITE EXAM Final report (())
[2018-11-08 04:22] VITALS: BP 127/60
[2018-11-08 07:23] LABS: BASOPHILS 0.7 % (0-2); EOSINOPHILS 5.3 % (0-7); HEMOGLOBIN 11.9 g/dL (12-16); IMMATURE GRANULOCYTES 1.1 % (0-5); MCH 28.3 pg (26.0-34.0); MCHC 32.2 g/dL (31.0-37.0); MCV 87.9 fL (80.0-100.0); MEAN PLATELET VOLUME 9.4 fL (7.4-10.4); MONOCYTES 13.5 % (2-11); NEUTROPHILS 52.4 % (40-80); PLATELET COUNT 452 10x3/uL (130-400); RBC 4.21 10x6/uL (4.00-5.40); RDW 15.2 % (11.5-14.5); WBC 4.4 10x3/uL (4.8-10.8)
[2018-11-08 07:43] LABS: ALBUMIN 2.4 g/dL (3.4-5.0); ALKALINE PHOSPHATASE 262 U/L (46-116); ALT (SGPT) 32 U/L (10-68); BILIRUBIN - TOTAL 0.25 mg/dL (0.2-1.3); CALC OSMOLALITY 280 mosm/kg (275-300); CALCIUM 8.5 mg/dL (8.5-10.1); CARBON DIOXIDE 29.7 mmol/L (21.0-32.0); CHLORIDE - SERUM 106 mmol/L (98-107); CREATININE - SERUM 0.6 mg/dL (0.6-1.3); GLUCOSE 113 mg/dL (74-106); POTASSIUM - SERUM 3.7 mmol/L (3.5-5.1); PROTEIN - SERUM 5.6 g/dL (6.4-8.2); SODIUM 142 mmol/L (136-145); UREA NITROGEN 4 mg/dL (7-18); eGFR NON AFRICAN AMERICAN > 90 mL/min (90-120)
--- NOTE | 2018-11-08 08:10 | NUR ---
PATIENT RESTING IN BED WITH AT BEDSIDE. PATIENT C/O SOME NAUSEA THIS AM, WILL GIVE ZOFRAN IV AND MONITOR. IV RIGHT FA SL, PATENT WITH NO REDNESS OR EDEMA. ISOLATION PRECAUTIONS USED FOR C-DIFF. CL IN REACH
[2018-11-08 08:40] VITALS: BP 136/69
[2018-11-08] MEDS ORDERED: VANCOMYCIN250 MG/51 PO (11:24)
[2018-11-08] MEDS ORDERED: FLAGYL500 MG PO (11:25)
[2018-11-08] MEDS ORDERED: MIRALAX17 GM PO (11:26)
[2018-11-08 12:40] VITALS: BP 106/58
--- NOTE | 2018-11-08 13:59 | NUR ---
IV REMOVED FROM LEFT FA WITH CATH INTACT, NO REDNESS OR EDEMA AT SITE. DISCHARGE INSTRUCTIONS GIVEN TO PATIENT. PATIENT VOICED UNDERSTANDING OF DISCHARGE INSTRUCTIONS. PATIENT TAKEN TO PRIVATE CAR VIA WHEELCHAIR.
--- NOTE | 2018-11-09 16:40 | MORECARE ---
CASE MANAGEMENT DISCHARGE SUMMARY PATIENT: JAISON HORVATH UNIT: [id number] ADM DATE: 11/02/18 AGE: 73 : 44 SEX: F ROOM/BED: D.2230 AUTHOR: YARY SAUNDERS PHYSICIAN: REFERRING PHYSICIAN: MEGHANA COTE MD DATE OF SERVICE: 11/09/18 Discharge Plan Patient Name: JAISON HORVATH Facility: [facility]:[place] : 1945 Planned Disposition: Home Anticipated Discharge Date: 11/08/18 Discharge Date: 11/08/2018 Expected LOS: 6 Initial Reviewer: [email or web address] Initial Review Date: 11/06/2018 Generated: 11/09/18 5:40 pm Comments DCP- Discharge Planning Updated by [email or web address]: Rebecca Feliciano on 11/06/18 8:[address] Patient Name: JAISON HORVATH Admission Status: ER Accout number: [id number] Admission Date: 11-02-2018 : 1945 Admission Diagnosis:NONINFECTIVE GASTROENTERITIS AND COLITIS, UNSPECIFIED Attending: MEGHANA COTE Current LOS: 4 Anticipated DC Date: 11-08-2018 Planned Disposition: Home Primary Insurance: MEDICARE A & B Discharge Planning Comments: CM MET WITH PATIENT AND SPOUSE (GIORGIO) REGARDING D/C NEEDS AND PLANS. PATIENT STATED HER SPOUSE WOULD DRIVE HER HOME AT DISCHARGE AND ONCE THERE ARE NO STEPS OR STAIRS AT HER HOME. PATIENT STATED SHE IS INDEPENDENT WITH HER CARE AND HAS A WHEELCHAIR, CANE, SHOWER CHAIR, AND GLUCOMETER AT HER HOME IF NEEDED. PATIENTS PCP IS DR. ZHU AND USES [facility] AT [facility] FOR HER PHARMACY NEEDS. PATIENT WANTS TO SPEAK WITH DOCTOR REGARDING HOME HEALTH BEFORE SHE CHOOSES ONE. SHE IS NOT SURE IF IT WILL BE NEEDED. CM WILL CONTINUE TO FOLLOW PATIENT WITH D/C NEEDS AND PLANS. PCP DR[facility] GIORGIO HORVATH (SPOUSE) [phone] Manufacturing Test Engineer: Rebecca Feliciano DCPIA - Discharge Planning Initial Assessment Updated by [id number]: Rebecca Feliciano on 11/06/18 9:18 am * Is the patient Alert and Oriented? Yes * How many steps to enter\exit or inside your home? * PCP DR. ZHU * [facility] [place] * Preadmission Environment Home with Family * ADLs Independent * Equipment Cane Glucometer Shower Chair Wheelchair * List name and contact numbers for known caregivers / representatives who currently or will assist patient after discharge: GIORGIO HORVATH (SPOUSE) [phone] * Verbal permission to speak to the caregivers and representatives has been obtained from the patient. Yes * Community resources currently utilized None * Additional services required to return to the preadmission environment? Yes * Can the patient safely return to the preadmission environment? Yes * Has this patient been hospitalized within the prior 30 days at any hospital? No Coverage Notice Reviewer: [email or web address] Pavan Kay Notice Issued Date-Time: 11/02/2018 11:25 Notice Type: Medicare Outpatient Observation Notice Notice Delivered To: Patient Relationship to Patient: Self Neonatal Specialist Name: Delivery Method: HAND - Hand Delivered Nicky Days: Prior Verbal Notification: Recipient Understood Notice: Yes Recipient Signature: Yes Med Rec Note Co-signed by Attending: Coverage Notice Comment: Last DP export: 11/06/18 8:27 Patient Name: JAISON HORVATH Page [phone] at 1640 All edits/amendments must be made on the electronic document DICTATION DATE: 11/09/18 1640 UNLOADING CHECKER: BLUE 11/09/18 1640 RPT#: [id number] DC DATE:11/08/18 STATUS: DIS IN [facility] [address] [place] [address] END OF REPORT
== END 2018-11-08 14:01 | disposition home or self-care (01) | DRG 372 ==
LOC: D.ER 09:52 → D.M3 11:27 → OBSVTIME 11:27 → D.EDHOLD 11:27 → D.M3 11:42 → D.ICU 11-02 14:55 → D.M3 11-02 14:55 → D.MS 11-02 14:55 → D.ICU 11-02 21:52 → D.MS 11-05 16:16 → D.SDCHOLD 11-05 18:53 → D.MS 11-05 18:54
PROVIDERS: Family Medicine; Internal Medicine Gastroenterology; ADMIT Emergency Medicine
DX: A04.72 Enterocolitis due to Clostridium difficile, not specified as recurrent (principal); E46 Unspecified protein-calorie malnutrition; E87.1 Hypo-osmolality and hyponatremia; E44.0 Moderate protein-calorie malnutrition; E87.6 Hypokalemia; D72.829 Elevated white blood cell count, unspecified; Z66 Do not resuscitate; R11.10 Vomiting, unspecified

== ENCOUNTER 2019-02-09 14:27 | Inpatient (IN) | payer MEDICARE, OTHER ==
[~2019-02-09] VITALS: Ht 152.4 cm; Wt 40.0 kg
--- NOTE | ~2019-02-09 | HEMODYNAMI ---
PATIENT:JAISON HORVATH MEDICAL RECORD: [id number] : 43 LOCATION:[facility] D.2114 ADMISSION DATE: 02/10/19 Generatedon:02/11/20199:48 Patient name: JAISON HORVATH Patient #: [id number] SSN: : 1 12/26/1944 Date of study: 02/11/2019 Page: Of Hemodynamic Procedure Report Patient Data Patient Demographics Procedure consent was obtained First Name: JAISON Gender: Female Last Name: YULIET : 1945 [facility] Initial: P Age: 73 year(s) Patient #: [id number] Race: Unknown Additional ID: [id number] Contact details Address: [address] [place] [address] State: [place] City: [place] Zip code: [address] Past Medical History Allergies Allergen Reaction Date Comments Reported Other allergy 07/07/2018 morphine Other allergy 07/12/2018 Morphine Demerol 02/11/2019 Other allergy 02/11/2019 DILAUDID Admission Admission Data Admission Date: 02/10/2019 Admission Time: 15:44 Room #: D.2114 Procedure Procedure Types Cath Procedure Diagnostic Procedure [facility] w/Coronaries Procedure Description Procedure Date Procedure Date: 02/11/2019 Procedure Start Time: 9:36 Procedure End Time: 9:46 Procedure Staff Name Function Nehemias Spears MD Performing Physician Onofre Chen RN Nurse Kajal Graf RT Scrub Holley Lopez RT Monitor Procedure Data Cath Procedure Fluoroscopy Diagnostic fluoroscopy Total fluoroscopy Time: 1.1 time: 1.1 min min Diagnostic fluoroscopy Total fluoroscopy dose: 360 dose: 360 mGy mGy Contrast Material Contrast Material Type Amount (ml) Isovue 300 50 Entry Location Entry Primary Successful Side Size Upsize Upsize Entry Closure Succes sful Closure Location (Fr) 1 (Fr) 2 (Fr) Remarks Device Remarks Femoral Right 5 Fr Exoseal artery Estimated blood loss: 5 ml Diagnostic catheters Device Type Used For End Catheter Placement MULTIPACK JL 4.0 5Fr Left Coronary catheter Angiography MULTIPACK 3DRC 5Fr Right Coronary catheter Angiography MULTIPACK Pigtail 5 Fr LV Angiography catheter Procedure Complications No complications Procedure Medications Medication Administration Route Dosage 0.9% NaCl I.V. 100 ml/hr Oxygen etCO2 Nasal cannula 3 l/min Heparin Flush Bag added to field 2 bags (1000units/500ml NS) Lidocaine 2% added to field 20 Versed I.V. 0.5 mg Fentanyl I.V. 25 mcg Solumedrol I.V. 125 mg Hemodynamics Rest Heart Rate: 93 (bpm) Pressure Samples Time Site Value (mmHg) Purpose Heart Use Rate(bpm) 9:41 LV 123/8,13 EDP 94 9:42 AO 119/59(85) Pullback 94 Gradients Valve Time Site Site 2 Mean SEP/DFP Peak To Heart Use 1 (mmHg) (sec/min) Peak Rate (mmHg) (bpm) Aortic 9:42 LV AO 21 18 94 119/59(85) Calculations Valve P-P Mean Valve Index Valve Source Name Gradient Area Flow (cm2) Aortic 21 21 Snapshots Pre Cath Intra NCS Post Cath Vital Signs Time Heart Resp SPO2 etCO2 NIBP Rhythm Pain Status Sedation Rate (ipm) (%) (mmHg) (mmHg) Level (bpm) 9:28:27 91 26 89 0 119/61(88) NSR 10 (11) , 10(A) Unimaginable unspeakable 9:32:41 92 23 94 40.5 114/65(78) NSR 10 (11) , 10(A) Unimaginable unspeakable 9:36:57 91 25 97 43.5 109/54(84) NSR 0 (11) , No 9(A) pain 9:41:09 92 23 91 45.7 101/55(76) NSR 0 (11) , No 9(A) pain 9:45:21 90 20 92 49.5 100/49(71) NSR 0 (11) , No 9(A) pain Medications Time Medication Route Dose Verified Delivered Reason Notes Effe ctiveness by by 9:31:34 0.9% NaCl I.V. 100 Onofre Onofre Per ml/hr April Chen physician RN RN 9:31:47 Oxygen etCO2 3 Onofre Onofre for low 02 Nasal l/min April Chen sats cannula RN RN 9:31:58 Heparin Flush added 2 Onofre Onofre used for Bag to bags Lorigan April procedure (1000units/500ml field RN RN NS) 9:32:09 Lidocaine 2% added 20ml Onofre Onofre for local to vial Lorigan Lorigan anesthetic field RN RN 9:32:26 Versed I.V. 0.5 Onofre Onofre for mg Lorigan Lorigan sedation RN RN 9:32:35 Fentanyl I.V. 25 Onofre Onofre for mcg Lorigan Lorigan sedation RN RN 9:45:06 Solumedrol I.V. 125 Onofre Onofre Per mg Lorigan Geniaigan physician RN corporate counsel Log Time Note 9:05:40 Signed procedure consent form obtained from patient. 9:05:41 Diagnostic Cath status Elective 9:05:43 Time tracking: Call back (After hours or weekends) 9:05:46 Plan of Care:Hemodynamics will remain stable., Cardiac rhythm will remain stable., Comfort level will be maintained., Respiratory function will remain adequate., Patient/ family verbilizes understanding of procedure., Procedure tolerated without complication., Recovers from procedure without complications.. 9:11:14 Onofre Chen RN sent for patient. Start room use. 9:18:54 Patient received from Med II to CCL 1 Alert and oriented. Tansferred to table in Supine position. 9:18:56 Warm blankets applied, and darling hugger turned on for patient comfort. 9:18:56 Correct patient and procedure confirmed by team. 9:18:56 ECG and BP/O2 sat monitors applied to patient. 9:27:22 Vital chart was started 9:27:23 Full Disclosure recording started 9:27:27 Rhythm: sinus rhythm 9:28:24 H&P Date Dictated: 02/10/2019 Within 30 days and on chart.. 9:28:26 Pre-procedure instructions explained to patient. 9:28:26 Pre-op teaching completed and patient verbalized understanding. 9:28:28 Family in patients room. 9:28:29 Patient NPO since Midnight. 9:28:33 Patient allergic to Demerol 9:29:15 Patient allergic to Other allergyDILAUDID 9:29:18 Is the patient allergic to Iodine/contrast media? No. 9:29:19 Is patient on blood thinner?Yes 9:29:21 ACC The patient was administered the following blood thiners within the last 24 hours: ACCPlavix 9:29:23 Patient diabetic? No. 9:29:25 Previous problem with sedation/anesthesia? No ? 9:29:27 Snore? No 9:29:28 Sleep apnea? No 9:29:29 Deviated septum? No 9:29:30 Opens mouth fully? Yes 9:29:31 Sticks out tongue? Yes 9:29:32 Airway obstruction? No ? 9:30:56 Dentures? No ? 9:31:06 Pre procedure: right dorsailis pedis pulse 2+ Normal; easily identifiable; not easily obliterated 9:31:13 Patient pain scale 10/10 CHEST. 9:31:34 0.9% NaCl 100 ml/hr I.V. was administered by Onofre Chen RN; Per physician; 9:31:38 IV patent on arrival in right wrist with 0.9% NaCl at KVO. 9:31:42 Lab results completed and on chart. 9:31:45 Right groin area was prepped with chlora-prep and draped in sterile fashion 9:31:46 Alarms reviewed by R. N. 9:31:46 Sharps counted by scrub and verified by R.N. 9:31:47 Oxygen 3 l/min etCO2 Nasal cannula was administered by Onofre Chen RN; for low 02 sats; 9:31:48 Final Timeout: patient, procedure, and site verified with staff and physician. All members of the team are in agreement. 9:31:51 Right groin site verified by team. 9:31:54 Maximum allowable Isovue 300 dose 300ml. Physician notified. (300ml for normal creatinines. For patients with creatinine of 1.7 or higher multiply weight(kg) x 5 divided by creatinine.) 9:31:57 Fire Safety Assessment: A--An alcohol-based skin anteseptic being used preoperatively., C--Open oxygen or nitrous oxide is being used., D--An ESU, laser, or fiber-optic light is being used. 9:31:58 Heparin Flush Bag (1000units/500ml NS) 2 bags added to field was administered by Onofre Chen RN; used for procedure; 9:32:01 Physical assessment completed. ASA score P 2 - A patient with mild systemic disease as per Nehemias Spears MD. 9:32:04 Sedation plan: IV Moderate Sedation Medication:Versed, Fentanyl 9:32:09 Lidocaine 2% 20ml vial added to field was administered by Onofre Chen RN; for local anesthetic; 9:32:26 Versed 0.5 mg I.V. was administered by Onofre Chen RN; for sedation; 9:32:35 Fentanyl 25 mcg I.V. was administered by Onofre Chen RN; for sedation; 9:36:04 Baseline sample Acquired. 9:36:13 Procedure started. 9:36:17 Local anesthetic to right femoral artery with Lidocaine 2% by Nehemias Spears MD.INITIAL ACCESS ONLY 9:37:01 A 5 Fr sheath was inserted into the Right Femoral artery 9:37:21 Use device set Femoral Dx 9:37:22 ACIST Syringe (00484) opened to sterile field. 9:37:23 Bag Decanter (2002S) opened to sterile field. 9:37:23 Medline Cath Pack ([id number]) opened to sterile field. 9:37:24 DIAGNOSTIC WIRE .035 260cm J wire (950737) opened to sterile field. 9:37:25 ACIST Hand Control (48627) opened to sterile field. 9:37:25 ACIST Manifold (84571) opened to sterile field. 9:37:25 DIAGNOSTIC Multipack 5Fr catheter set (NV6146) opened to sterile field. 9:37:26 Tegaderm 4 x 4 (1626W) opened to sterile field. 9:37:27 SHEATH 5FR Remlap (SDU974) opened to sterile field. 9:37:31 A MULTIPACK JL 4.0 5Fr catheter was advanced over the wire and used for Left Coronary Angiography. 9:39:25 Catheter removed. 9:40:13 A MULTIPACK 3DRC 5Fr catheter was advanced over the wire and used for Right Coronary Angiography. 9:40:38 Catheter removed. 9:40:51 A MULTIPACK Pigtail 5 Fr catheter was advanced over the wire and used for LV Angiography. 9:41:42 LV gram done using MELISSA 9:41:49 Injector settings: Ml/sec: 10, Volume: 20, 9:41:50 LV hemodynamics recorded. 9:42:00 EF : 60 % 9:42:11 Catheter removed. 9:42:28 Sheath removed intact; hemostasis achieved with Exoseal to the Right Femoral artery. 9:42:31 Procedure ended.(Physican Out) 9:42:36 Fluoroscopy time 01.10 minutes. 9:42:39 Flurop Dose total: 360 9:42:39 Fluoroscopy dose: 360 mGy 9:42:42 Contrast amount:Isovue 300 50ml. 9:42:44 Sharps counted by scrub and verified by R.N. 9:42:45 Insertion/operative site no bleeding no hematoma. 9:42:48 Post-op/insertion site Right Femoral artery dressed using a 4 x 4 and Tegaderm. 9:42:51 Post right femoral artery:stable, clean and dry 9:42:53 Post Procedure Pulses reassessed and unchanged 9:42:57 Post-procedure physical assessment completed. ASA score P 2 - A patient with mild systemic disease as per Nehemias Spears MD. 9:43:00 Post procedure rhythm: unchanged. 9:43:15 Estimated blood loss: 5 ml 9:43:16 Post procedure instruction explained to patient.Patient verbalizes understanding. 9:43:17 Patient needs reinforcement of post procedure teaching. 9:44:01 Procedure Complication : No complications 9:44:03 See physician's report for complete and final results. 9:44:09 EXOSEAL 5Fr (EX500) opened to sterile field. 9:44:23 Procedure and supply charges have been captured, reviewed, submitted and are correct. 9:45:06 Solumedrol 125 mg I.V. was administered by Onofre Chen RN; Per physician; 9:46:31 Vital chart was stopped 9:46:33 Report given to PCU. 9:46:36 Patient transfered to PCU with Bed. 9:46:47 Procedure ended. 9:46:47 Full Disclosure recording stopped 9:47:27 End room use (Document Last) Device Usage Item Name Manufacture Quantity Catalog Hospital Part Current Minimal L ot# / Number Charge Number Stock Stock Serial# Code ACIST Acist 1 90145 013930 885330 240036 20 Syringe [employer] (44565) Systems Inc Bag Microtek 1 354817 26925 378659 5 Decanter Medical Inc. () Medline Medline 1 [id number] 466021 64227 192774 5 Cath Pack ([id number]) DIAGNOSTIC St Alejo 1 612676 187518 392809 029355 30 WIRE .035 260cm J wire (002136) ACIST Hand Acist 1 48862 041546 031687 241569 5 Control Medical (05544) Systems Inc ACIST Acist 1 86088 430451 783226 013916 5 Manifold Medical (62270) Systems Inc DIAGNOSTIC Cardinal 1 VC0805 816575 38088 894821 30 Multipack Health 5Fr catheter set (TZ1999) Tegaderm 4 3M 1 1626W 136696 779321 482936 5 x 4 (1626W) SHEATH 5FR Terumo 1 NWQ841 553599 963308 010247 5 Remlap (QDT163) MULTIPACK Cardinal 1 165215 5 JL 4.0 5Fr Health catheter MULTIPACK Cardinal 1 938286 5 3DRC 5Fr Health catheter MULTIPACK Cardinal 1 867730 5 Pigtail 5 Health Fr catheter EXOSEAL 5Fr Cardinal 1 EX500 329698 564516 166331 10 (EX500) Health Signature Audit [place] Stage Time Signature Unsigned Intra-Procedure 02/11/2019 Holley 9:48:38 AM Counts RT(R) Signatures Monitor : Holley Signature : Counts RT Date : Time : [address] [address]
[~2019-02-09 14:27] MED LIST changes: +MIRALAX17 GM PO; +SINGULAIR10 MG PO; +VANCOMYCIN250 MG/51 PO; +ZETIA10 MG PO
[2019-02-09] MEDS ORDERED: LIPITOR20 MG PO (14:50)
[2019-02-09 15:28] LABS: BASOPHILS 0.2 % (0-2); EOSINOPHILS 0.3 % (0-7); HEMOGLOBIN 13.7 g/dL (12-16); IMMATURE GRANULOCYTES 0.1 % (0-5); MCH 29.8 pg (26.0-34.0); MCHC 32.6 g/dL (31.0-37.0); MCV 91.5 fL (80.0-100.0); MEAN PLATELET VOLUME 10.5 fL (7.4-10.4); MONOCYTES 7.5 % (2-11); NEUTROPHILS 79.9 % (40-80); RBC 4.59 10x6/uL (4.00-5.40); RDW 14.1 % (11.5-14.5); WBC 9.9 10x3/uL (4.8-10.8)
[2019-02-09 15:37] LABS: APTT 26.7 SECONDS (22.8-39.4); INR 1.01 (0.85-1.17); PROTIME 12.8 SECONDS (11.6-15.0)
[2019-02-09 15:41] VITALS: BP 136/71
[2019-02-09 15:45] LABS: ALKALINE PHOSPHATASE 255 U/L (46-116); ALT (SGPT) 48 U/L (10-68); BILIRUBIN - TOTAL 0.68 mg/dL (0.2-1.3); CALC OSMOLALITY 276 mosm/kg (275-300); CALCIUM 9.5 mg/dL (8.5-10.1); CARBON DIOXIDE 30.5 mmol/L (21.0-32.0); CHLORIDE - SERUM 97 mmol/L (98-107); CREATININE - SERUM 0.7 mg/dL (0.6-1.3); GLUCOSE 93 mg/dL (74-106); POTASSIUM - SERUM 3.4 mmol/L (3.5-5.1); PROTEIN - SERUM 7.8 g/dL (6.4-8.2); SODIUM 138 mmol/L (136-145); UREA NITROGEN 14 mg/dL (7-18); eGFR NON AFRICAN AMERICAN 87 mL/min (90-120)
[2019-02-09 15:47] LABS: PLATELET COUNT 295 10x3/uL (130-400)
[2019-02-09 15:56] LABS: CKMB 0.4 U/L (0.0-3.6); CREATINE KINASE 46 UL (21-215)
--- NOTE | 2019-02-09 16:02 | NUR ---
PT PAIN 6/10 PRIOR TO FIRST NITRO BP 151/56 HR 84
--- NOTE | 2019-02-09 16:07 | NUR ---
113/52 LEFT ARM PAIN 6/10 AFTER 1ST NITRO
[2019-02-09 16:08] VITALS: BP 113/52
[2019-02-09 16:11] LABS: TROPONIN-I < 0.017 ng/mL (0.000-0.060)
--- NOTE | 2019-02-09 18:34 | NUR ---
TRANSFER FROM ER BY W/C. SHAMIRINTED TO ROOM. CALL LIGHT IN REACH. WILL CONT. PLAN OF CARE.
--- NOTE | 2019-02-09 19:45 | NUR ---
RESUMING PATIENT CARE. PATIENT IS ALERT AND ORIENTED. RESTING COMFORTABLY IN BED. RESPIRATIONS ARE EVEN AND UNLABORED. PATIENT DENIES NEEDS AT THIS TIME. NO S/S OF DISTRESS. NO C/O PAIN. CALL LIGHT WITHIN REACH. WILL CPOC.
[2019-02-09 20:00] VITALS: BP 113/41
[2019-02-09 22:30] LABS: CKMB 0.5 U/L (0.0-3.6); CREATINE KINASE 36 UL (21-215); TROPONIN-I < 0.017 ng/mL (0.000-0.060)
[2019-02-10] VITALS: BP 115/54
[2019-02-10 02:42] LABS: BASOPHILS 0.2 % (0-2); EOSINOPHILS 0.5 % (0-7); HEMATOCRIT 38.8 % (36.0-48.0); HEMOGLOBIN 12.8 g/dL (12-16); IMMATURE GRANULOCYTES 0.2 % (0-5); LYMPHOCYTES 17.5 % (15-50); MCH 29.8 pg (26.0-34.0); MCV 90.4 fL (80.0-100.0); MEAN PLATELET VOLUME 10.6 fL (7.4-10.4); MONOCYTES 8.1 % (2-11); NEUTROPHILS 73.5 % (40-80); PLATELET COUNT 275 10x3/uL (130-400); RBC 4.29 10x6/uL (4.00-5.40); WBC 9.1 10x3/uL (4.8-10.8)
[2019-02-10 03:03] LABS: CALC OSMOLALITY 273 mosm/kg (275-300); CARBON DIOXIDE 30.7 mmol/L (21.0-32.0); CHLORIDE - SERUM 100 mmol/L (98-107); CKMB 0.4 U/L (0.0-3.6); CREATINE KINASE 32 UL (21-215); CREATININE - SERUM 0.6 mg/dL (0.6-1.3); GLUCOSE 115 mg/dL (74-106); MAGNESIUM - SERUM 1.8 mg/dL (1.8-2.4); POTASSIUM - SERUM 3.3 mmol/L (3.5-5.1); SODIUM 137 mmol/L (136-145); T4 THYROXIN - FREE 1.19 ng/dL (0.76-1.46); THYROID STIMULATING HORMONE 1.46 uIU/mL (0.36-3.74); TROPONIN-I < 0.017 ng/mL (0.000-0.060); eGFR NON AFRICAN AMERICAN > 90 mL/min (90-120)
[2019-02-10 03:05] LABS: UREA NITROGEN 10 mg/dL (7-18)
[2019-02-10 04:00] VITALS: BP 103/41
[2019-02-10 08:12] VITALS: BP 103/55
--- NOTE | 2019-02-10 08:36 | NUR ---
;EAALEA FOR LORRIE LIU BY W/CDorian
[2019-02-10 10:14] LABS: CKMB 0.3 U/L (0.0-3.6); CREATINE KINASE 32 UL (21-215)
[2019-02-10 10:22] LABS: TROPONIN-I < 0.017 ng/mL (0.000-0.060)
--- NOTE | 2019-02-10 12:18 | NUR ---
DOES NOT WANT SCDS AT THIS TIME.
[2019-02-10 12:31] VITALS: BP 105/56
[2019-02-10 12:39] VITALS: Ht 152.4 cm; Wt 40.0 kg
--- NOTE | 2019-02-10 16:30 | NUR ---
GONE FOR CT. WILL CONT. PLAN OF CARE.
[2019-02-10 16:39] VITALS: BP 103/50
--- NOTE | 2019-02-10 19:25 | NUR ---
RESUMING PATIENT CARE. PATIENT IS ALERT AND ORIENTED. RESPIRATIONS ARE EVEN AND UNLABORED. NO S/S OF DISTRESS. NO C/O PAIN. CALL LIGHT WITHIN REACH. WILL CPOC.
[2019-02-10 20:00] VITALS: BP 115/43
[2019-02-11 00:06] VITALS: BP 118/71
--- NOTE | 2019-02-11 01:38 | NUR ---
PATIENT RESTING COMFORTABLY IN BED. RESPIRATIONS ARE EVEN AND UNLABORED. NO S/S OF DISTRESS. NO C/O PAIN. CALL LIGHT WITHIN REACH. WILL CPOC.
--- NOTE | 2019-02-11 03:53 | NUR ---
ADMINISTERED ORDERED ANALGESIC FOR COMPLAINTS OF PAIN IN THROAT, PT STATES PAIN OF AN 8 ON A SCALE OF 0-10. WILL CTM.
[2019-02-11 04:00] VITALS: BP 136/60
[2019-02-11 05:10] LABS: BASOPHILS 0.2 % (0-2); EOSINOPHILS 0.5 % (0-7); HEMATOCRIT 37.5 % (36.0-48.0); HEMOGLOBIN 12.3 g/dL (12-16); IMMATURE GRANULOCYTES 0.1 % (0-5); LYMPHOCYTES 11.2 % (15-50); MCH 29.6 pg (26.0-34.0); MCHC 32.8 g/dL (31.0-37.0); MCV 90.4 fL (80.0-100.0); MEAN PLATELET VOLUME 10.6 fL (7.4-10.4); MONOCYTES 9.7 % (2-11); NEUTROPHILS 78.3 % (40-80); PLATELET COUNT 307 10x3/uL (130-400); RBC 4.15 10x6/uL (4.00-5.40); RDW 13.8 % (11.5-14.5); WBC 10.6 10x3/uL (4.8-10.8)
[2019-02-11 05:29] LABS: CALC OSMOLALITY 268 mosm/kg (275-300); CALCIUM 8.7 mg/dL (8.5-10.1); CARBON DIOXIDE 29.1 mmol/L (21.0-32.0); CHLORIDE - SERUM 98 mmol/L (98-107); CREATININE - SERUM 0.6 mg/dL (0.6-1.3); GLUCOSE 141 mg/dL (74-106); POTASSIUM - SERUM 3.9 mmol/L (3.5-5.1); SODIUM 134 mmol/L (136-145); UREA NITROGEN 9 mg/dL (7-18); eGFR NON AFRICAN AMERICAN > 90 mL/min (90-120)
--- NOTE | 2019-02-11 07:30 | NUR ---
RECEIVED PT IN BED C/O NECK THROAT PAIN STATE SHE JUST KNOWS SHE HAS HEART BLOCKAGE WILL GIVE PAIN MED WHEN APPROPRIATE FOR SCHEDULE
--- NOTE | 2019-02-11 09:15 | NUR ---
TO [facility] VIA BED
[2019-02-11 09:51] VITALS: BP 92/61
--- NOTE | 2019-02-11 10:10 | NUR ---
RETURNED FROM RECYCLE COORDINATOR VIA BED VSS DRSG C/D/I TO RT YULISSA PPPX4 NAD NOTED WILL CONTINUE TO MONITOR
[2019-02-11 13:11] VITALS: BP 117/65
[2019-02-11 17:40] VITALS: BP 92/53
--- NOTE | 2019-02-11 20:07 | NUR ---
INITIAL ROUNDS COMPLETED AND PT RESTING IN BED WITH NO DISTRESS. O2 @ 2L/NC. SALINE LOCK TO RIGHT HAND. HAS ICEPACK ON HER THROAT. RIGHT GROIN DRESSING C/D/I. MONITOR AND CPOC.
[2019-02-12 00:20] VITALS: BP 127/52
[2019-02-12 00:29] VITALS: BP 110/55
--- NOTE | 2019-02-12 01:51 | NUR ---
PT RESTING WITH EYES CLOSED. RESPS EVEN/NONLABORED. SR/80 PER TELEMETRY. MONITOR AND CPOC.
--- NOTE | 2019-02-12 02:53 | NUR ---
PT STATES BACK IS HURTING. THIS IS NOT A NEW PAIN. REQUESTED PRN PAIN MED. MEDICATED WITH NORCO PILL X 1. PT ALSO CAME OUT AND WALKED THE HALLWAY TO HELP HER BACK FEEL BETTER. STATES HER THROAT IS NOT HURTING RIGHT NOW, JUST HER BACK.
[2019-02-12 05:07] LABS: BASOPHILS 0.1 % (0-2); EOSINOPHILS 0 % (0-7); HEMATOCRIT 35.2 % (36.0-48.0); HEMOGLOBIN 11.4 g/dL (12-16); IMMATURE GRANULOCYTES 0.1 % (0-5); LYMPHOCYTES 5.7 % (15-50); MCH 29.2 pg (26.0-34.0); MCHC 32.4 g/dL (31.0-37.0); MEAN PLATELET VOLUME 10.8 fL (7.4-10.4); NEUTROPHILS 85.1 % (40-80); PLATELET COUNT 326 10x3/uL (130-400); RBC 3.91 10x6/uL (4.00-5.40); RDW 13.6 % (11.5-14.5); WBC 16.6 10x3/uL (4.8-10.8)
[2019-02-12 05:14] LABS: ANION GAP 9.9 mmol/L (8-16); CALCIUM 9.5 mg/dL (8.5-10.1); CARBON DIOXIDE 29.1 mmol/L (21.0-32.0); CREATININE - SERUM 0.8 mg/dL (0.6-1.3)
[2019-02-12 05:56] VITALS: BP 120/50
[2019-02-12 09:13] VITALS: BP 118/52
--- NOTE | 2019-02-12 09:13 | CN ---
PATIENT NAME:JAISON HORVATH MEDICAL RECORD: [id number] : 43 LOCATION:[facility] D.2114 ADMIT DATE: 02/10/19 ACCOUNT: [id number] CONSULTING PHYSICIAN: FERNANDO BARKLEY MD REFERRING PHYSICIAN: SERGO PHOENIX MD DATE OF CONSULTATION: 02/11/2019 HISTORY OF PRESENT ILLNESS: A 73-year-old lady with extensive past cardiovascular history, status post multivessel intervention, complete heart block, status post permanent pacemaker placement, admitted with chest pain. This has increased in severity since Wednesday. Rest symptomology. Radiating to the throat. Heaviness with marked dyspnea. Some nausea. She actually given the symptomatology underwent barium swallow. This shows no evidence of any peptic ulcer disease. Pain has worsened over the night. She has been brought to labor and delivery nurse for definitive diagnosis. PAST MEDICAL HISTORY: Includes; 1. History of hypothyroidism, on replacement. 2. Sick sinus syndrome, status post pacemaker placement. 3. Coronary artery disease, status post acute DC, cardiac arrest, multivessel intervention. SOCIAL HISTORY: Nonsmoker. Easily takes care of all of her ADLs. Good family support. ALLERGIES: DEMEROL AND DILAUDID. MEDICATIONS: Include Plavix 75 every day, atorvastatin 20 every day, Lamictal 100 b.i.d., HCTZ 25 every day, Synthroid 50 mcg every day. REVIEW OF SYSTEMS: The patient reports easy bruising but reports no swollen glands. The patient reports no fever, no night sweats, no significant weight gain, no significant weight loss. No significant exercise tolerance. The patient reports no dry eyes, no irritation, no vision change. Patient reports no difficulty hearing and no ear pain. Patient reports no frequent nose bleeds or nose and sinus problems. Patient reports on arm pain on exertion. No shortness of breath while lying down. No history of heart murmur. Patient reports no cough, no wheezing or coughing up blood. Patient reports no abdominal pain, no vomiting. Normal appetite. No diarrhea and not vomiting blood. No nausea and no constipation. Patient reports no incontinence. No difficulty urinating. No hematuria. No increased frequency. Patient reports no muscle aches. No weakness, no arthralgias, no back pain. No swelling of the extremities. Patient reports no abnormal mole, no jaundice, no rashes. Reports no loss of consciousness. No weakness and no numbness. No seizures, dizziness, or headaches. The patient reports no depression, no sleep disturbance, feeling safe in a relationship and no alcohol abuse. Patient reports on fatigue. Reports no runny nose or sinus pressure. No itching, no hives, and no frequent sneezing. PHYSICAL EXAMINATION: GENERAL: Pleasant female, in no acute distress, appears stated age. VITAL SIGNS: Blood pressure 130/60, pulse 99 and regular. HEENT: Normocephalic and atraumatic. NECK: No bruits are noted. HEART: Regular. A II/ systolic ejection murmur. CONSULT REPORT [id number] JAISON HORVATH LUNGS: Good air excursion. ABDOMEN: Soft and nontender. EXTREMITIES: Pulses are 2+. No edema. LABORATORY AND RADIOGRAPHIC DATA: ECG shows P-synchronous pacing. Cardiac enzymes negative. IMPRESSION: Continued pain with negative GI workup. Certainly within window of restenosis, plan for angiography. Intervention based on the above. TRANSINT:[id number] Voice Confirmation ID: [id number] DOCUMENT ID: [id number] FERNANDO BARKLEY MD at 0913 CC: [id number] DICTATION DATE: 02/11/19917 FRONT DESK AUXILIARY: 02/11/[address] [facility] [address] [place] [address]
--- NOTE | 2019-02-12 09:13 | OP ---
PATIENT NAME: JAISON HORVATH MEDICAL RECORD: [id number] :43 LOCATION:D.M2 D.2114 ADMISSION DATE:02/10/19 SURGEON: FERNANDO BARKLEY MD DATE OF OPERATION: 02/11/2019 PROCEDURE: Left heart catheterization, selective coronary angiography, right femoral artery approach. CATHETERS: A 5-Divehi sheath, 5/4 left and right Lazarus, 5/4 pig. The patient was returned to the alston, sheath removed. ExoSeal device placed. FINDINGS: Left ventriculography in 30-degree MELISSA view shows mild global hypo. Overall, LV function lower limits of normal at 50%. CORONARY ANATOMY: LEFT MAIN: Left main is free of disease. LAD: An area of previous stenting, is widely patent with no evidence of restenosis. CIRCUMFLEX: Circumflex is free of disease. No evidence of restenosis. RIGHT CORONARY ARTERY: [place] vessel, free of disease, previously placed stent. No evidence of restenosis. IMPRESSION: Noncardiac chest pain, left ventricular function remains normal. TRANSINT:[id number] Voice Confirmation ID: [id number] DOCUMENT ID: [id number] FERNANDO BARKLEY MD at 0913 CC: [id number] DICTATION DATE: 02/11/19 0950 AQUEDUCT AND RESERVOIR KEEPER: 02/11/19 1205 ADM IN [facility] [place] [id number] [place] [address]
[2019-02-12 13:05] VITALS: BP 119/50
[2019-02-12] MEDS ORDERED: PROTONIX40 MG PO (15:04)
[2019-02-12] MEDS ORDERED: CARAFATE1 G/10 ML PO (15:05)
--- NOTE | 2019-02-12 16:15 | NUR ---
REVIEWED DISCHARGE INSTRUCTIONS WITH PT AND STATES UNDERSTANDING COPY GIVEN DCD SALINE LOCK TO RT HAND WITH IV CATHETER INTACT SITE FREE OF REDNESS OR EDEMA PT DISCHARGED HOME LEFT UNIT VIA W/C IN STABLE CONDITION WITH ALL PERSONAL BELONGINGS
--- NOTE | 2019-02-13 09:12 | MORECARE ---
CASE MANAGEMENT DISCHARGE SUMMARY PATIENT: JAISON HORVATH UNIT: [id number] ADM DATE: 02/10/19 AGE: 73 : 43 SEX: F ROOM/BED: D.2114 AUTHOR: YARY SAUNDERS PHYSICIAN: REFERRING PHYSICIAN: SERGO PHOENIX MD DATE OF SERVICE: 02/13/19 Discharge Plan Patient Name: JAISON HORVATH [facility] [facility] 1945 Planned Disposition: Home Anticipated Discharge Date: 02/12/19 Discharge Date: 02/12/2019 Expected LOS: 2 Initial Reviewer: [email or web address] Initial Review Date: 02/13/2019 Generated: 02/13/19 10:11 am Patient Name: JAISON HORVATH Page [phone] at 0912 All edits/amendments must be made on the electronic document DICTATION DATE: 02/13/19910 COATER OPERATOR: BLUE 02/13/19910 RPT#: [id number] DC DATE:02/12/19 STATUS: DIS IN [facility] [address] [place] [address] END OF REPORT
== END 2019-02-12 16:15 | disposition home or self-care (01) | DRG 287 ==
LOC: D.ER 14:27 → D.M2 16:42 → OBSVTIME 16:42 → D.M2 02-10 15:44
PROVIDERS: Emergency Medicine; Internal Medicine Interventional Cardiology; ADMIT Family Medicine; ATTEND Family Medicine
PROC: B2151ZZ Fluoroscopy of Left Heart using Low Osmolar Contrast (ICD-10-PCS; 2019-02-11)
PROC: 4A023N7 Measurement of Cardiac Sampling and Pressure, Left Heart, Percutaneous Approach (ICD-10-PCS; 2019-02-11)
PROC: B2111ZZ Fluoroscopy of Multiple Coronary Arteries using Low Osmolar Contrast (ICD-10-PCS; principal; 2019-02-11 09:11)
DX: R07.89 Other chest pain (principal); I25.119 Atherosclerotic heart disease of native coronary artery with unspecified angina pectoris; I25.2 Old myocardial infarction; E03.9 Hypothyroidism, unspecified; Z95.0 Presence of cardiac pacemaker; M54.2 Cervicalgia

== ENCOUNTER 2019-02-20 11:24 | Emergency (ER) | payer MEDICARE, OTHER ==
[~2019-02-20] VITALS: Ht 152.4 cm; Wt 54.5 kg
[~2019-02-20 11:24] MED LIST changes: +CARAFATE1 G/10 ML PO; +LIPITOR20 MG PO
[2019-02-20 11:28] VITALS: Ht 152.4 cm; Wt 54.5 kg
[2019-02-20] MEDS ORDERED: DEXILANT60 MG PO (11:36)
[2019-02-20 12:34] LABS: BASOPHILS 0.1 % (0-2); EOSINOPHILS 0.1 % (0-7); HEMATOCRIT 32.4 % (36.0-48.0); HEMOGLOBIN 10.7 g/dL (12-16); IMMATURE GRANULOCYTES 0.2 % (0-5); LYMPHOCYTES 7.8 % (15-50); MCH 29.5 pg (26.0-34.0); MCV 89.3 fL (80.0-100.0); MEAN PLATELET VOLUME 9.8 fL (7.4-10.4); MONOCYTES 8.7 % (2-11); NEUTROPHILS 83.1 % (40-80); PLATELET COUNT 464 10x3/uL (130-400); RBC 3.63 10x6/uL (4.00-5.40); RDW 13.1 % (11.5-14.5)
[2019-02-20 12:43] LABS: APTT 33.9 SECONDS (22.8-39.4); INR 1.16 (0.85-1.17); PROTIME 14.2 SECONDS (11.6-15.0)
[2019-02-20 12:49] LABS: ALBUMIN 2.5 g/dL (3.4-5.0); ALKALINE PHOSPHATASE 649 U/L (46-116); ALT (SGPT) 116 U/L (10-68); BILIRUBIN - TOTAL 0.98 mg/dL (0.2-1.3); CALC OSMOLALITY 280 mosm/kg (275-300); CALCIUM 9.1 mg/dL (8.5-10.1); CARBON DIOXIDE 29.4 mmol/L (21.0-32.0); CHLORIDE - SERUM 101 mmol/L (98-107); CREATININE - SERUM 0.8 mg/dL (0.6-1.3); GLUCOSE 128 mg/dL (74-106); POTASSIUM - SERUM 3.6 mmol/L (3.5-5.1); PROTEIN - SERUM 7.1 g/dL (6.4-8.2); SODIUM 139 mmol/L (136-145); UREA NITROGEN 14 mg/dL (7-18); eGFR NON AFRICAN AMERICAN 74 mL/min (90-120)
[2019-02-20 13:00] LABS: CKMB 0.2 U/L (0.0-3.6); CREATINE KINASE 18 UL (21-215); TROPONIN-I < 0.017 ng/mL (0.000-0.060)
[2019-02-20 16:21] VITALS: BP 116/63
== END 2019-02-20 16:13 | disposition home or self-care (01) ==
LOC: D.ER 11:24
PROVIDERS: Family Medicine
DX: R07.9 Chest pain, unspecified (principal); E11.9 Type 2 diabetes mellitus without complications; I25.10 Atherosclerotic heart disease of native coronary artery without angina pectoris

== ENCOUNTER → 2019-07-25 08:38 | Outpatient (CLI) | payer MEDICARE, OTHER ==
[2019-02-20 11:28] VITALS: BMI 23.4
[~2019-07-25 08:38] MED LIST changes: +DEXILANT60 MG PO
== END | disposition home or self-care (01) ==
LOC: D.RT 08:38
PROVIDERS: ATTEND Internal Medicine Pulmonary Disease
DX: Z87.01 Personal history of pneumonia (recurrent) (principal)

== ENCOUNTER → 2020-05-15 12:07 | Outpatient (CLI) | payer MEDICARE, OTHER ==
[2019-02-20 11:28] VITALS: BMI 23.4
--- NOTE | ~2020-05-15 | EC ---
PATIENT:JAISON HORVATH DATE OF SERVICE: 05/15/20 SEX: F MEDICAL RECORD: [id number] DATE OF : 43 [facility] AGE OF PATIENT: 74 ADMISSION DATE: 05/15/20 REFERRING PHYSICIAN: INTERPRETING PHYSICIAN: FERNANDO BARKLEY MD ECHOCARDIOGRAM REPORT ECHO CHARGES 4 ECHO COMPLETE Date: 05/15/20 CLINICAL DIAGNOSIS: CAD/ASSESS EF AND VALVES ECHOCARDIOGRAPHIC MEASUREMENTS (adult normal given) AC root (d.<3.7cm) 3.5 cm LV Septum d (<1.2 cm> 1.3 cm Valve Excursion 1.3 cm LV Septum (systole) 1.5 cm Left Atria (s.<4.0cm> 3.8 cm LVPW d(<1.2cm) 1.2 cm RV (d.<2.3cm) 3.3 cm LVPW (sytole) 1.3 cm LV diastole(<5.6CM) 4.0 cm MV E-F(>70mm/sec) cm LV systole 2.6 cm LVOT Diameter 1.5 cm MV exc.(>10mm) 1.0 cm Est.ejection fraction (50-75%) % DOPPLER: LVIT cm/sec A 99.0 cm/sec E 63.0 cm/sec LA cm/sec RVSP 32 mmHg LVOT 109 cm/sec AOP1/2T m/s Asc. Ao 159 cm/sec RVOT 101 cm/sec RA cm/sec PA 108 cm/sec AV Gradient Peak 10.12mmHg AV Mean 5.59 mmHg AV Area 1.5 cm MV Gradient Peak 5.81 mmHg MV Mean 2.17 mmHg MV Area cm COMMENTS: Supervisor Hand Silvering: 2 NICOLE JOHNSON Telephone Information Clerk: 3 Dr. Gar TAPE# PACS Pericardial Effusion N DATE OF SERVICE: Adequate 2D, color flow imaging, spectral Doppler, and M-Mode. Mild LVH. LV internal dimension is normal. Wall motion is normal. EF is greater than or equal to 55%. Aortic valve is sclerotic without evidence of stenosis by Doppler interrogation. There is mild AI by color flow imaging. Left atrium is normal. Mitral valve shows no prolapse. Trace MR. Right-sided chambers are grossly normal. Mild TR. Incidental note is made of pacemaker lead in the RV apex. ECHOCARDIOGRAM REPORT [id number] JAISON HORVATH TRANSINT:[id number] Voice Confirmation ID: [id number] DOCUMENT ID: [id number] FERNANDO BARKLEY MD CC: [id number] DICTATION DATE: 05/16/20 140 SALES REPRESENTATIVE MALT LIQUORS: 05/16/202230 DEP CLI 05/15/20 [id number] [place] [address]
== END | disposition home or self-care (01) ==
LOC: D.HCCECHO 12:07
PROVIDERS: ATTEND Internal Medicine Interventional Cardiology
DX: I25.10 Atherosclerotic heart disease of native coronary artery without angina pectoris (principal)

== ENCOUNTER 2021-02-03 12:43 | Observation (INO) | payer MEDICARE ==
[~2021-02-03] VITALS: Ht 152.4 cm; Wt 63.6 kg
--- NOTE | ~2021-02-03 | HEMODYNAMI ---
PATIENT:JAISON HORVATH MEDICAL RECORD: [id number] : 43 [address] [id number] ADMISSION DATE: 02/03/21 Generatedon:111:08 Patient name: JAISON HORVATH Patient #: [id number] SSN: : 1 12/26/1944 Date of study: 02/04/2021 Page: Of Hemodynamic Procedure Report Patient Data Patient Demographics Procedure consent was obtained First Name: JAISON Gender: Female Last Name: YULIET : 1945 Middle Initial: P Age: 75 year(s) Patient #: [id number] Race: Unknown Additional ID: [id number] Contact details [address]: [address] [place] [address] State: [place] City: [place] Zip code: [address] Past Medical History History of disease Date Diagnosis Comments CAD Allergies Allergen Reaction Date Comments Reported Other allergy 07/07/2018 morphine Other allergy 07/12/2018 Morphine Demerol 02/11/2019 Other allergy 02/11/2019 DILAUDID Other allergy 02/04/2021 DEMEROL, DILAUDID Admission Admission Data Admission Date: 02/03/2021 Admission Time: 17:37 Room #: 2125 Height (in.): 60 BSA: 1.61 (m2) Height (cm.): 152.4 BMI: 27.56 (kg/m2) Weight (lbs.): 141.1 Weight (kg.): 64 Lab Results Lab Result Date: 02/04/2021 Lab Result Time: 0:00 Biochemistry Name Units Result Min Max BUN mg/dl 14 --(--*-)-- 7 18 Creatinine mg/dl 0.7 --(*---)-- 0.6 1.3 eGFR ml/min 85.67856 -*(----)-- 90 120 NONAFRICAN CBC Name Units Result Min Max Hematocrit % 41.1 -*(----)-- 42 54 Hemoglobin g/dl 13 -*(----)-- 13.5 17.5 Procedure Procedure Types Cath Procedure Diagnostic Procedure [facility] w/Coronaries FFR/IVUS FFR Initial FFR Additional Sedation Charges Moderate Sedation 40-54 minutes PCI Procedure Hemochron ACT Test Procedure Description Procedure Date Procedure Date: 02/04/2021 Procedure Start Time: 10:20 Procedure End Time: 11:04 Procedure Staff Name Function Chuy Dixon MD Performing Physician Shirley Ferguson RT Monitor Kajal Graf RT Scrub Onofre Chen RN Nurse Procedure Data Cath Procedure Fluoroscopy Diagnostic fluoroscopy Total fluoroscopy Time: time: 13.5 min 13.5 min Diagnostic fluoroscopy Total fluoroscopy dose: dose: 1320 mGy 1320 mGy Contrast Material Contrast Material Type Amount (ml) Isovue 300 66 Entry Location Entry Primary Successful Side Size Upsize Upsize Entry Closure Succes sful Closure Location (Fr) 1 (Fr) 2 (Fr) Remarks Device Remarks Femoral Right 5 Fr Exoseal artery Estimated blood loss: 10 ml Diagnostic catheters Device Type Used For End Catheter Placement MULTIPACK JL 4.0 5Fr Procedure catheter MULTIPACK 3DRC 5Fr Procedure catheter MULTIPACK Pigtail 5 Fr Ventriculography catheter MULTIPACK JL 4.0 5Fr Procedure catheter Procedure Complications No complications Procedure Medications Medication Administration Route Dosage 0.9% NaCl I.V. 100 ml/hr Oxygen etCO2 Nasal cannula 2 l/min Heparin Flush Bag added to field 2 bags (1000units/500ml NS) Lidocaine 2% added to field 20 Benadryl I.V. 50 mg Versed I.V. 1 mg Fentanyl I.V. 50 mcg Heparin Bolus I.V. 4000 units Versed I.V. 1 mg Hemodynamics Rest BSA: 1.61 (m2) HGB: 13 (g/dl) O2 Consumption: Estimated: 149.22 (ml/min) O2 Cons umption indexed: Estimated:92.68 (ml/min/m) Heart Rate: 75 (bpm) Pressure Samples Time Site Value (mmHg) Purpose Heart Use Rate(bpm) 10:29 LV 146/-10,4 Snapshot 95 10:30 AO 164/74(110) Pullback 102 10:30 LV 159/-3,12 Pullback 102 Gradients Valve Time Site 1 Site 2 Mean SEP/DFP Peak To Heart Use (mmHg) (sec/min) Peak Rate (mmHg) (bpm) Aortic 10:30 LV AO 0 23 0 102 159/-3,12 164/74(110) Calculations Valve P-P Mean Valve Index Valve Source Name Gradient Area Flow (cm2) Aortic 0 0 0 0 Snapshots Pre Cath Intra NCS Post Cath Vital Signs Time Heart Resp SPO2 etCO2 NIBP (mmHg) Rhythm Pain Sedation Rate (ipm) (%) (mmHg) Status Level (bpm) 10:06:14 74 15 95 0 125/63(107) Paced 0 (11) 10(A) , No pain 10:10:26 78 14 94 35.2 136/72(97) Paced 0 (11) 10(A) , No pain 10:14:42 76 19 94 33.7 117/67(92) Paced 0 (11) 10(A) , No pain 10:18:54 77 17 96 32.2 118/63(91) Paced 0 (11) 10(A) , No pain 10:23:35 93 14 97 30.7 125/79(112) Paced 0 (11) 10(A) , No pain 10:27:45 93 21 96 23.2 134/75(97) Paced 0 (11) 10(A) , No pain 10:31:58 97 20 97 31.4 136/73(97) Paced 0 (11) 10(A) , No pain 10:36:17 89 23 97 29.2 132/59(85) Paced 0 (11) 10(A) , No pain 10:40:26 87 22 96 24.7 119/63(89) Paced 0 (11) 10(A) , No pain 10:44:37 85 23 97 30.7 121/67(99) Paced 0 (11) 10(A) , No pain 10:48:46 91 15 98 29.9 136/68(101) Paced 0 (11) 10(A) , No pain 10:53:00 85 24 94 32.2 123/61(94) Paced 0 (11) 10(A) , No pain 10:57:14 86 15 97 28.4 115/62(87) Paced 0 (11) 10(A) , No pain 11:01:22 87 16 98 29.9 131/70(100) Paced 0 (11) 10(A) , No pain Medications Time Medication Route Dose Verified Delivered Reason Notes Effectiveness by by 10:08:27 0.9% NaCl I.V. 100 Onofre Onofre Per physician ml/hr April Chen RN RN 10:08:37 Oxygen etCO2 2 Onofre Onofre for low 02 sats Nasal l/min April Chen cannula RN RN 10:08:48 Heparin Flush added 2 Onofre Onofre used for Bag to bags April Chen procedure (1000units/500ml field RN RN NS) 10:08:58 Lidocaine 2% added 20ml Onofre Onofre for local to vial April Chen anesthetic field RN RN 10:09:08 Benadryl I.V. 50 mg Onofre Onofre Per physician April Chen RN RN 10:17:13 Versed I.V. 1 mg Onofre Onofre for sedation April Chen RN RN 10:17:21 Fentanyl I.V. 50 Onofre Onofre for sedation mcg April Chen RN RN 10:32:19 Heparin Bolus I.V. 4000 Onofre Onofre for units April Chen anticoagulation RN RN 10:35:06 Versed I.V. 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 9:34:46 Onofre Chen RN sent for patient. Start room use. 9:34:47 Time tracking: Regular hours (M-F 7:00 - 5:00) 9:34:50 Plan of Care:Hemodynamics will remain stable., Cardiac rhythm will remain stable., Comfort level will be maintained., Respiratory function will remain adequate., Patient/ family verbilizes understanding of procedure., Procedure tolerated without complication., Recovers from procedure without complications.. 9:35:59 H&P Date Dictated: 02/03/2021 ER History on chart.. 9:36:10 Patient allergic to Other allergyDEMEROL, DILAUDID 9:37:46 Lab Result : BUN 14 mg/dl 9:37:46 Lab Result : Creatinine 0.7 mg/dl 9:37:46 Lab Result : eGFR NONAFRICAN 85.54856 ml/min 9:37:46 Lab Result : Hemoglobin 13 g/dl 9:37:46 Lab Result : Hematocrit 41.1 % 9:37:53 Patient Weight : 141.1 lbs 9:37:56 Patient Height : 60 inches 9:44:50 Patient received from Med II to CCL 2 Alert and oriented. Tansferred to table in Supine position. 9:48:16 Warm blankets applied, and darling hugger turned on for patient comfort. 9:48:18 Correct patient and procedure confirmed by team. 9:48:23 Pre-procedure instructions explained to patient. 9:48:25 Family unavailable. 9:48:27 Patient NPO since Midnight. 9:48:29 Is the patient allergic to Iodine/contrast media? No. 9:48:30 Was the patient premedicated? Yes 9:48:31 Is patient on blood thinner?Yes 9:48:34 ACC The patient was administered the following blood thiners within the last 24 hours: ACCPlavix 9:48:38 Patient diabetic? Yes. 9:48:40 If diabetic: On Metformin? No 9:48:47 Snore? Unknown 9:48:49 Sleep apnea? No 9:48:54 Airway obstruction? Yes ASTHMA 9:48:58 Dentures? No ? 9:49:35 [facility] 22 [facility] catheter with 0.9% NaCl at KVO. 9:49:43 Lab results completed and on chart. 9:49:48 Stress Test: no; abnormal ? 9:49:58 Right groin area was prepped with chlora-prep and draped in sterile fashion 9:49:59 Alarms reviewed by R. N. 9:50:00 Sharps counted by scrub and verified by R.N. 10:05:08 ECG and BP/O2 sat monitors applied to patient. 10:05:09 Vital chart was started 10:05:10 Baseline sample Acquired. 10:05:18 Rhythm: sinus rhythm , paced 10:05:20 Full Disclosure recording started 10:08:27 0.9% NaCl 100 ml/hr I.V. was administered by Onofre Chen RN; Per physician; Verbal order read back and verified. 10:08:37 Oxygen 2 l/min etCO2 Nasal cannula was administered by Onofre Chen RN; for low 02 sats; Verbal order read back and verified. 10:08:48 Heparin Flush Bag (1000units/500ml NS) 2 bags added to field was administered by Onofre Chen RN; used for procedure; Verbal order read back and verified. 10:08:58 Lidocaine 2% 20ml vial added to field was administered by Onofre Chen RN; for local anesthetic; Verbal order read back and verified. 10:09:08 Benadryl 50 mg I.V. was administered by Onofre Chen RN; Per physician; Verbal order read back and verified. 10:11:19 Zero performed for pressure channel P1 10:16:20 Physician arrived 10:16:20 --------ALL STOP TIME OUT------ 10:16:21 Final Timeout: patient, procedure, and site verified with staff and physician. All members of the team are in agreement. 10:16:22 Right groin site verified by team. 10:16:26 Fire Safety Assessment: A--An alcohol-based skin anteseptic being used preoperatively., C--Open oxygen or nitrous oxide is being used., D--An ESU, laser, or fiber-optic light is being used. 10:16:31 Physical assessment completed. ASA score P 3 - A patient with severe systemic disease as per Chuy Dixon MD. 10:16:35 2) 60-89 Mildly reduced kidney function, and other findings (as for stage 1) point to kidney disease. 10:16:40 Maximum allowable contrast dose (3.7 X eGFR X 0.75)239 ml. 10:16:44 Sedation plan: IV Moderate Sedation Medication:Versed, Fentanyl 10:16:49 Use device set Femoral Dx 10:17:05 ACIST Syringe (19359) opened to sterile field. 10:17:06 Bag Decanter () opened to sterile field. 10:17:06 Medline Cath Pack ([id number]) opened to sterile field. 10:17:08 ACIST Hand Control (77072) opened to sterile field. 10:17:08 ACIST Manifold (26866) opened to sterile field. 10:17:10 DIAGNOSTIC Multipack 5Fr catheter set (AU5091) opened to sterile field. 10:17:13 Versed 1 mg I.V. was administered by Onofre Chen RN; for sedation; Verbal order read back and verified. 10:17:13 SHEATH 5FR Burson (MKG464) opened to sterile field. 10:17:13 EMERALD Guide Wire (087-627) opened to sterile field. 10:17:21 Fentanyl 50 mcg I.V. was administered by Onofre Chen RN; for sedation; Verbal order read back and verified. 10:20:15 Procedure started. 10:20:43 Local anesthetic to right femoral artery with Lidocaine 2% by Chuy Dixon MD.INITIAL ACCESS ONLY 10:22:40 A 5 Fr sheath was inserted into the Right Femoral artery 10:22:45 j wire advanced. 10:24:30 A MULTIPACK JL 4.0 5Fr catheter was advanced over the wire and used for Procedure. 10:24:32 LCA angiography performed. 10:26:09 Catheter removed. 10:26:17 A MULTIPACK 3DRC 5Fr catheter was advanced over the wire and used for Procedure. 10:27:17 RCA angiography performed. 10:27:55 Catheter removed. 10:28:20 Roby OmniWire (26979) opened to sterile field. 10:28:21 INFLATOR Merit BasixCompak (GG9704) opened to sterile field. 10:28:38 A MULTIPACK Pigtail 5 Fr catheter was advanced over the wire and used for Ventriculography. 10:28:42 LV gram done using MELISSA 10:28:56 TUBING High Pressure Extension Tubing (Zack) ([id number]) opened to sterile field. 10:30:01 EF : 50 % 10:30:44 A MULTIPACK JL 4.0 5Fr catheter was advanced over the wire and used for Procedure.OMNI WIRE 10:32:04 Zero performed for pressure channel P1 10:32:19 Heparin Bolus 4000 units I.V. was administered by Onofre Chen RN; for anticoagulation; Verbal order read back and verified. 10:35:06 Versed 1 mg I.V. was administered by Onofre Chen RN; for sedation; Verbal order read back and verified. 10:42:23 Catheter removed. 10:43:32 GUIDE 5FR EBU 3.5 catheter ([id number]) opened to sterile field. 10:44:07 5 Fr ebu3.5 guide catheter was inserted over the wire 10:45:12 Pressure wire advanced. 10:48:38 Pressure wire advanced. 10:48:58 mLAD lesion measured at .96 with IFR 10:50:32 Wire removed. 10:50:37 Wire advanced across lesion. 10:51:58 OM1 lesion measured at 1.02 with IFR 10:52:13 Wire removed. 10:55:34 dCirc lesion measured at 1.02 with IFR 10:57:24 Wire removed. 10:57:57 Tegaderm 4 x 4 (1626W) opened to sterile field. 10:57:58 EXOSEAL 5Fr (EX500) opened to sterile field. 10:59:27 Sheath removed intact; hemostasis achieved with Exoseal to the Right Femoral artery. 10:59:52 Procedure ended.(Physican Out) 11:00:02 Fluoroscopy time 13.50 minutes. 11:00:06 Fluoroscopy dose: 1320 mGy 11:00:06 Flurop Dose total: 1320 11:00:10 Dose Area Product 96587 mGy/cm. 11:00:15 Contrast amount:Isovue 300 66ml. 11:00:18 Maximum allowable dose exceeded? No. 11:00:19 Sharps counted by scrub and verified by R.N. 11:00:21 Insertion/operative site no bleeding no hematoma. 11:00:25 Post right femoral artery:stable 11:00:28 Post Procedure Pulses reassessed and unchanged 11:00:40 Post-procedure physical assessment completed. ASA score P 3 - A patient with severe systemic disease as per Chuy Dixon MD. 11:00:45 Post procedure rhythm: unchanged. 11:00:48 Estimated blood loss: 10 ml 11:00:50 Post procedure instruction explained to patient.Patient verbalizes understanding. 11:01:21 Procedure type changed to Cath procedure, Diagnostic procedure, LHC, [facility] w/Coronaries, FFR/IVUS, FFR Initial, FFR Additional, Sedation Charges, Moderate Sedation 40-54 minutes, PCI procedure, Hemochron ACT Test 11:02:11 Procedure and supply charges have been captured, reviewed, submitted and are correct. 11:03:49 Procedure Complication : No complications 11:03:51 Vital chart was stopped 11:03:53 [facility] Findings: mild to moderate CAD (<70%) 11:03:57 Operative report dictated upon procedure completion. 11:03:57 See physician's report for complete and final results. 11:04:00 Report given to Med II. 11:04:03 Patient transfered to [facility] II with Stretcher. 11:04:05 Procedure ended. 11:04:05 Full Disclosure recording stopped 11:04:12 End room use (Document Last) 11:07:35 ACT drawn and resulted at 255 seconds. (normal therapeutic range 180-240 seconds). Device Usage Item Name Manufacture Quantity Catalog Hospital Part Current Minimal L ot# / Number Charge Number Stock Stock Serial# Code ACIST Acist 1 [id number] [id number] 836222 898128 20 Syringe Medical (20663) Systems Inc Bag Microtek 1 022185 19962 029487 5 Decanter Medical Inc. () Medline Medline 1 [id number] 653115 70512 690053 5 Cath Pack ([id number]) ACIST Hand Acist 1 87320 259975 478013 224448 5 Control Medical (91123) Systems Inc ACIST Acist 1 61659 732316 562987 313414 5 Manifold Medical (31945) Systems Inc DIAGNOSTIC Cardinal 1 [id number] 355770 28444 713349 30 [facility] Bluestreak Technology 5Fr catheter set (LD2529) SHEATH 5FR Terumo 1 HKS455 934107 362560 563086 5 Burson (FKL187) [facility] Accokeek 1 502-455 453605 552534 239518 5 Guide Wire [facility] (502-455) MULTIPACK Cardinal 1 451459 5 JL 4.0 5Fr Health catheter MULTIPACK Cardinal 1 354239 5 3DRC 5Fr Health catheter Roby Roby 1 [id number] 867433 82031 9987 5 OmniWire (46265) INFLATOR Merit 1 JT8753 856564 340382 579719 15 [facility] Medical BasixCompak (TS0559) MULTIPACK Cardinal 1 766888 5 Pigtail 5 Health Fr catheter TUBING High Merit 1 [id number] 512161 85282 633099 10 Pressure Medical Extension Tubing (Dixon) ([id number]) GUIDE 5FR Medtronic 1 [id number] 014373 567494 461678 1 EBU 3.5 catheter ([id number]) Tegaderm 4 3M 1 1626W 024913 517432 769091 5 x 4 (1626W) EXOSEAL 5Fr Cardinal 1 EX500 467556 945540 185170 10 (EX500) Health Signature Audit Mackey Stage Time Signature Unsigned Intra-Procedure 02/04/2021 Shirley Ferguson 11:06:48 AM RT(R) Intra-Procedure 02/04/2021 Onofre 11:07:06 AM April RN Intra-Procedure 02/04/2021 Chuy Dixon MD 11:08:01 AM Signatures Performing Physician : Signature : hCuy Dixon MD Date : Time : Monitor : Shirley Ferguson Signature : RT Date : Time : Nurse : Onofre Chen Signature : RN Date : Time : [place] [address] [place] [address]
[2021-02-03 13:21] VITALS: BP 159/71
[2021-02-03 13:21] LABS: BASOPHILS 0.3 % (0-2); EOSINOPHILS 1.4 % (0-7); HEMATOCRIT 43.4 % (36.0-48.0); HEMOGLOBIN 13.9 g/dL (12-16); IMMATURE GRANULOCYTES 0.1 % (0-5); LYMPHOCYTE ABS# 1.89 10x3/uL (1.18-3.74); LYMPHOCYTES 26.3 % (15-50); MCH 28.9 pg (26.0-34.0); MCV 90.2 fL (80.0-100.0); MEAN PLATELET VOLUME 10.3 fL (7.4-10.4); MONOCYTES 7.4 % (2-11); NEUTROPHIL ABS# 4.64 10x3/uL (1.56-6.13); NEUTROPHILS 64.5 % (40-80); PLATELET COUNT 327 10x3/uL (130-400); RBC 4.81 10x6/uL (4.00-5.40); RDW 13.8 % (11.5-14.5); WBC 7.2 10x3/uL (4.8-10.8)
[2021-02-03 13:38] LABS: CALC OSMOLALITY 279 mosm/kg (275-300); CALCIUM 9.3 mg/dL (8.5-10.1); CARBON DIOXIDE 27.4 mmol/L (21.0-32.0); CHLORIDE - SERUM 104 mmol/L (98-107); GLUCOSE 96 mg/dL (74-106); POTASSIUM - SERUM 3.8 mmol/L (3.5-5.1); SODIUM 139 mmol/L (136-145); UREA NITROGEN 17 mg/dL (7-18); eGFR NON AFRICAN AMERICAN 57 mL/min (90-120)
[2021-02-03 13:53] LABS: APTT 28.1 SECONDS (22.8-39.4); INR 1.06 (0.85-1.17); PROTIME 12.8 SECONDS (11.6-15.0)
[2021-02-03 13:54] LABS: ALBUMIN 3.6 g/dL (3.4-5.0); ALKALINE PHOSPHATASE 132 U/L (30-120); ALT (SGPT) 33 U/L (10-68); BILIRUBIN - TOTAL 0.33 mg/dL (0.2-1.3); CKMB 0.8 U/L (0.0-3.6); CREATINE KINASE 89 UL (21-215); MAGNESIUM - SERUM 1.9 mg/dL (1.8-2.4); PROTEIN - SERUM 7.6 g/dL (6.4-8.2)
[2021-02-03 13:55] LABS: TROPONIN-I < 0.017 ng/mL (0.000-0.060)
--- NOTE | 2021-02-03 18:12 | NUR ---
PATIENT ARRIVED FROM ED VIA WHEELCHAIR. PATIENT ALERT/ORIENTED, AMBULATORY. PATIENT TRANSFERRED SELF INTO BED. TELEMETRY APPLIED. PATIENT DENIES ANY CHEST PAIN SINCE ARRIVAL TO THE ED. CALL LIGHT WITHIN REACH. ORIENTATION PROVIDED TO ROOM. DENIES NEEDS. NO DISTRESS.
[2021-02-03 18:31] VITALS: BP 128/70
[2021-02-03 19:30] LABS: CKMB 0.9 U/L (0.0-3.6); CREATINE KINASE 61 UL (21-215); TROPONIN-I < 0.017 ng/mL (0.000-0.060)
[2021-02-03 20:00] VITALS: BP 117/68
[2021-02-04] VITALS (7 sets, daily range): BP systolic 99–142; BP diastolic 46–67; Ht 152.4 cm; Wt 63.6 kg
--- NOTE | 2021-02-04 01:03 | NUR ---
I have reviewed this patient and I concur with the Shift Assessment completed by the Licensed Practical Nurse today this shift.
[2021-02-04 01:47] LABS: CKMB 0.6 U/L (0.0-3.6); CREATINE KINASE 52 UL (21-215); TROPONIN-I < 0.017 ng/mL (0.000-0.060)
[2021-02-04 07:39] LABS: BASOPHILS 0.6 % (0-2); EOSINOPHILS 1.9 % (0-7); HEMATOCRIT 41.1 % (36.0-48.0); IMMATURE GRANULOCYTES 0.2 % (0-5); LYMPHOCYTE ABS# 1.47 10x3/uL (1.18-3.74); LYMPHOCYTES 28.1 % (15-50); MCH 28.4 pg (26.0-34.0); MCHC 31.6 g/dL (31.0-37.0); MCV 89.7 fL (80.0-100.0); MEAN PLATELET VOLUME 10.2 fL (7.4-10.4); MONOCYTES 6.7 % (2-11); NEUTROPHIL ABS# 3.27 10x3/uL (1.56-6.13); NEUTROPHILS 62.5 % (40-80); PLATELET COUNT 305 10x3/uL (130-400); RBC 4.58 10x6/uL (4.00-5.40); RDW 13.9 % (11.5-14.5)
[2021-02-04 07:50] LABS: ALBUMIN 3.3 g/dL (3.4-5.0); ALKALINE PHOSPHATASE 124 U/L (30-120); ALT (SGPT) 33 U/L (10-68); BILIRUBIN - TOTAL 0.33 mg/dL (0.2-1.3); CALC OSMOLALITY 281 mosm/kg (275-300); CALCIUM 9.4 mg/dL (8.5-10.1); CHLORIDE - SERUM 105 mmol/L (98-107); CKMB 0.6 U/L (0.0-3.6); CREATINE KINASE 44 UL (21-215); CREATININE - SERUM 0.7 mg/dL (0.6-1.3); GLUCOSE 99 mg/dL (74-106); MAGNESIUM - SERUM 2.1 mg/dL (1.8-2.4); POTASSIUM - SERUM 3.5 mmol/L (3.5-5.1); PROTEIN - SERUM 6.8 g/dL (6.4-8.2); SODIUM 141 mmol/L (136-145); THYROID STIMULATING HORMONE 0.97 uIU/mL (0.36-3.74); TROPONIN-I < 0.017 ng/mL (0.000-0.060); UREA NITROGEN 14 mg/dL (7-18); eGFR NON AFRICAN AMERICAN 86 mL/min (90-120)
[2021-02-04 07:55] LABS: WBC 5.2 10x3/uL (4.8-10.8)
--- NOTE | 2021-02-04 08:08 | NUR ---
PT LYING IN BED WITH HOB RAISED, RR EVEN NON LABORED ON ROOM AIR. PT AWAKE AND ALERT, TALKATIVE THIS MORNING. PT GIVEN AM MEDS, EDUCATION GIVEN REGARDING LOVENOX. PT STATES UNDERSTANDING. NO FURTHER NEEDS VOICED, WATER AT BEDSIDE. CLWR.
[2021-02-04 08:57] LABS: CHOL - HDL RATIO 5.8 ratio (2.3-4.1); LDL-HDL RATIO 3.5 ratio (1.5-3.5)
--- NOTE | 2021-02-04 09:41 | NUR ---
PREOP MEDS GIVEN PER EMAR, DID NOT PLACE NITROPASTE PER PT REQUEST D/T PT STATES HER BP DROPS QUICKLY, NOTIFIED SURGERY TEAM. UNABLE TO COMPLETE BENEDYRL IV D/T IV INFILTRATION. SURGERY DEPT ARRIVED AND STATES THEY WILL PLACE IV AND DENIES ANY FURTHER NEEDS. PT AWAKE AND ALERT, NO DISTRESS NOTED WHEN LEAVING FLOOR.
--- NOTE | 2021-02-04 11:26 | NUR ---
PT ARRIVED FROM HEART CATH AT THIS TIME. PT AWAKE AND ALERT, PT SITE TO RIGHT GROIN DRESSING INTACT, SOFT TO TOUCH. PT AWARE SHE IS TO LAY FLAT FOR ONE HOUR.
--- NOTE | 2021-02-04 12:22 | NUR ---
VS MAINTAINING STABLE. RR EVEN NON LABORED. PT GIVEN DRINK, TOLERATED WELL. SITE TO RIGHT GROIN CLEAN AND INTACT, NO BLEEDING NOTED. NO NEEDS VOICED. CLWR.
--- NOTE | 2021-02-04 14:46 | NUR ---
PT PLACED ON AN EGGCRATE MATTRESS D/T DISCOMFORT IN BACK AND NECK FROM CURRENT MATTRESS. RIGHT GROIN DRESSING DRY AND INTACT, NO BRUISING NOTED. PT AWAKE AND ALERT. PRN TYLENOL GIVEN D/T PAIN. RR EVEN NON LABORED. NO NEEDS VOICED. CLWR.
[2021-02-04] MEDS ORDERED: RANEXA500 MG PO (15:01)
[2021-02-04] MEDS ORDERED: COLACE100 MG PO (15:01)
[2021-02-04] MEDS ORDERED: LIPITOR20 MG PO (15:01)
[2021-02-04] MEDS ORDERED: TESSALON PERLE100 MG PO (15:01)
[2021-02-04] MEDS ORDERED: MELATONIN 3 MG1 TAB PO (15:02)
[2021-02-04] MEDS ORDERED: PROTONIX40 MG PO (15:02)
--- NOTE | 2021-02-04 15:54 | NUR ---
D/C INSTRUCTIONS GIVEN AT THIS TIME AND PAMPLET REGARDING POST OP CARE GIVEN. PT STATES UNDERSTANDING AND CAN READ BACK SIGNS AND SYMPTOMS TO LOOK FOR. IV TO RIGHT HAND D/C'D CATHETER INTACT, DRESSING APPLIED. PT SPOUSE IN ROUTE TO PICK PT UP. PT SITTING ON SIDE OF BED, RR EVEN NON LABORED. NO DISTRESS NOTED.
--- NOTE | 2021-02-04 16:00 | NUR ---
PT SPOKE WITH NURSE REGARDING HER AGIGATION BEING D/C AFTER HER SPOUSE HAD RETURNED HOME. NURSE SPOKE WITH PT AND APOLOGIZED AT THIS TIME. PT STATES APPRECIATION FOR NURSE.
--- NOTE | 2021-02-04 16:31 | NUR ---
DRESSING TO LEFT FOREARM CHANGED FROM PREVIOUS IV D/T BLEEDING. PT SPOUSE ARRIVED AND SHE WAS WHEELED TO PRIVATE VEHICLE WITH ALL BELONGINGS. NO DISTRESS NOTED ON DEPARTURE.
== END 2021-02-04 16:25 | disposition home or self-care (01) ==
LOC: D.ER 12:43 → D.M2 17:37 → OBSVTIME 17:38 → D.M2 02-04 16:25
PROVIDERS: Emergency Medicine; Internal Medicine Cardiovascular Disease; ADMIT Emergency Medicine; ATTEND Emergency Medicine
DX: I25.110 Atherosclerotic heart disease of native coronary artery with unstable angina pectoris (principal); R07.9 Chest pain, unspecified; E11.9 Type 2 diabetes mellitus without complications; K21.9 Gastro-esophageal reflux disease without esophagitis; E78.5 Hyperlipidemia, unspecified